=== PATIENT | male | born 1955 | race Caucasian/White ===

== ENCOUNTER → 2018-01-06 15:02 | Outpatient (CLI) | payer SELFPAY ==
[2018-01-06 16:10] LABS: Absolute Lymphocyte Count 1.49 X10^3/ul (0.83-4.51); Absolute Neutrophil Count 4.2 X10^3/uL (2.0-7.7); Basophil# 0.03 X10^3/uL; Basophil% 0.4 % (0-1); Eosinophil# 0.13 X10^3/uL; Eosinophils% 1.9 % (0-5); Hematocrit 36.6 % (40-54); Hemoglobin 12.4 g/dl (13.0-16.5); Lymphocyte # 1.49 X10^3/ul (4.0); Lymphocyte % 22.3 % (19-41); Mean Corp Hgb Conc 33.9 g/gl (32-36); Mean Corpuscular Hgb 29.1 pg (27.0-32.0); Mean Corpuscular Volume 85.9 fL (80-94); Mean Platelet Vol. 11.4 fl (6.2-12.0); Monocyte% 10.5 % (0-10); Neutrophil # 4.24 X10^3/uL (2.7-7.7); Neutrophil % 63.6 % (47-70); Platelet Count 264 K/mm3 (150-450); RBC Distribution Width CV 12.5 % (11.6-14.6); RBC Distribution Width SD 38.4 fl (35.1-43.9); Red Blood Count 4.26 M/mm3 (4.6-6.2); White Blood Count 6.7 K/mm3 (4.4-11.0)
[2018-01-06 16:12] LABS: POSITIVE COUNT NO; POSITIVE DIFFERENTIAL NO; POSITIVE MORPHOLOGY NO
[2018-01-06 16:47] LABS: ALB/GLOB Ratio 1.1 RATIO (0.9-2.4); AST(SGOT) 20 U/L (15-37); Alanine Aminotransfer ALT/SGPT 39 U/L (16-61); Albumin, Serum 3.8 g/dL (3.2-5.0); Alkaline Phosphatase 86 U/L (45-117); Anion Gap 9 (5-15); BUN 42 mg/dL (7-18); BUN/Creat Ratio 25.6 RATIO (10-20); Calcium,Total 8.5 mg/dL (8.5-10.1); Chloride 100 mmol/L (98-107); Creatinine, Serum 1.64 mg/dL (0.70-1.30); EST Glomerular Filtration Rate 45 mL/min (>60); Est Glom Filt Rate - Afr Amer 55 mL/min (>60); Globulin 3.4 g/dL (2.2-4.2); Glucose 86 mg/dL (74-106); PSA,Total - Annual Screen 0.67 ng/mL (0.00-4.00); Potassium 4.2 mmol/L (3.5-5.1); Protein, Total 7.2 g/dL (6.4-8.2); Sodium Level 134 mmol/L (136-145); Thyroid Stim Hormone (TSH) 2.08 uIU/mL (0.358-3.74)
[2018-01-08 09:43] LABS: Hep C Antibodies <0.1 s/co ratio (0.0-0.9)
== END ==
LOC: POLAB3 15:03
PROVIDERS: Family Provider Family Medicine Geriatric Medicine; PCP Family Medicine Geriatric Medicine; Visit Provider Family Medicine Geriatric Medicine
DX: F52.8 Other sexual dysfunction not due to a substance or known physiological condition (principal); I10 Essential (primary) hypertension; Z12.5 Encounter for screening for malignant neoplasm of prostate; Z13.89 Encounter for screening for other disorder
CPT/HCPCS: 36415; 80053; 84153; 84403; 84443; 85025; 86803; G0103

== ENCOUNTER → 2018-10-29 12:43 | Outpatient (CLI) | payer MEDICARE, SELFPAY | PROVIDERS: Family Provider Family Medicine Geriatric Medicine; PCP Family Medicine Geriatric Medicine; Referring Provider Family Medicine Geriatric Medicine; Visit Provider Family Medicine Geriatric Medicine | DX: R68.83 Chills (without fever) (principal) | CPT/HCPCS: 87633 ==

== ENCOUNTER → 2019-01-07 | Outpatient (CLI) | payer MEDICARE, SELFPAY ==
[2019-01-07 12:56] LABS: Absolute Neutrophil Count 4.6 X10^3/uL (2.0-7.7); Basophil# 0.02 X10^3/uL; Basophil% 0.3 % (0-1); Eosinophils% 1.5 % (0-5); Hematocrit 38.7 % (40-54); Hemoglobin 12.9 g/dl (13.0-16.5); Lymphocyte % 16.5 % (19-41); Mean Corp Hgb Conc 33.3 g/gl (32-36); Mean Corpuscular Hgb 28.9 pg (27.0-32.0); Mean Corpuscular Volume 86.8 fL (80-94); Mean Platelet Vol. 11.2 fl (6.2-12.0); Monocyte# 0.81 X10^3/uL; Monocyte% 12.2 % (0-10); Neutrophil # 4.55 X10^3/uL (2.7-7.7); Neutrophil % 68.3 % (47-70); Platelet Count 243 K/mm3 (150-450); RBC Distribution Width CV 13.6 % (11.6-14.6); RBC Distribution Width SD 43.2 fl (35.1-43.9); Red Blood Count 4.46 M/mm3 (4.6-6.2); White Blood Count 6.7 K/mm3 (4.4-11.0)
[2019-01-07 12:59] LABS: Differential Indicated SCAN CRITERIA MET; POSITIVE COUNT NO; POSITIVE DIFFERENTIAL NO; POSITIVE MORPHOLOGY YES
[2019-01-07 13:10] LABS: Vitamin D,25 Hydroxy 21.9 ng/mL (29.95-100.01)
[2019-01-07 13:14] LABS: AST(SGOT) 18 U/L (15-37); Alanine Aminotransfer ALT/SGPT 39 U/L (16-61); Albumin, Serum 3.5 g/dL (3.2-5.0); Alkaline Phosphatase 85 U/L (45-117); Anion Gap 10 (5-15); BUN 30 mg/dL (7-18); BUN/Creat Ratio 26.5 RATIO (10-20); Calcium,Total 9.3 mg/dL (8.5-10.1); Chloride 101 mmol/L (98-107); Creatinine, Serum 1.13 mg/dL (0.70-1.30); EST Glomerular Filtration Rate 69 mL/min (>60); Est Glom Filt Rate - Afr Amer 84 mL/min (>60); Globulin 3.6 g/dL (2.2-4.2); Glucose 83 mg/dL (74-106); PSA,Total - Annual Screen 0.48 ng/mL (0.00-4.00); Protein, Total 7.1 g/dL (6.4-8.2); Sodium Level 137 mmol/L (136-145); Thyroid Stim Hormone (TSH) 2.03 uIU/mL (0.358-3.74)
[2019-01-07 13:16] LABS: Platelet Estimate ADEQUATE (ADEQ); Red Cell Morphology NORM C+C NORMAL (NORM C&C)
== END | disposition home or self-care (01) ==
LOC: POLAB3 09:00
PROVIDERS: Family Provider Family Medicine Geriatric Medicine; PCP Family Medicine Geriatric Medicine; Visit Provider Family Medicine Geriatric Medicine
DX: E55.9 Vitamin D deficiency, unspecified (principal); F52.8 Other sexual dysfunction not due to a substance or known physiological condition; I10 Essential (primary) hypertension; Z12.5 Encounter for screening for malignant neoplasm of prostate
CPT/HCPCS: 36415; 80053; 82306; 84153; 84403; 84443; 85025; G0103

== ENCOUNTER → 2020-01-09 08:43 | Outpatient (CLI) | payer MEDICARE, SELFPAY ==
[2020-01-09 11:18] LABS: Absolute Lymphocyte Count 1.14 X10^3/uL (0.83-4.51); Absolute Neutrophil Count 3.9 X10^3/uL (2.0-7.7); Basophil# 0.05 X10^3/uL; Basophil% 0.9 % (0-1); Eosinophil# 0.08 X10^3/uL; Eosinophils% 1.4 % (0-5); Hematocrit 39.3 % (40-54); Hemoglobin 12.5 g/dL (13.0-16.5); Lymphocyte # 1.14 X10^3/ul (4.0); Lymphocyte % 19.7 % (19-41); Mean Corp Hgb Conc 31.8 g/dL (32-36); Mean Corpuscular Hgb 27.3 pg (27.0-32.0); Mean Corpuscular Volume 85.8 fL (80-94); Mean Platelet Vol. 11.1 fl (6.2-12.0); Monocyte# 0.52 X10^3/uL; NRBC Flagged by Analyzer 0 % (0-5); Neutrophil % 67.3 % (47-70); Platelet Count 227 K/mm3 (150-450); RBC Distribution Width CV 12.7 % (11.6-14.6); RBC Distribution Width SD 39.6 fl (35.1-43.9); Red Blood Count 4.58 M/mm3 (4.6-6.2); White Blood Count 5.8 K/mm3 (4.4-11.0)
[2020-01-09 11:44] LABS: Vitamin D,25 Hydroxy 27.3 ng/mL
[2020-01-09 11:55] LABS: ALB/GLOB Ratio 1.1 RATIO (0.9-2.4); AST(SGOT) 17 U/L (15-37); Alanine Aminotransfer ALT/SGPT 37 U/L (16-61); Albumin, Serum 3.9 g/dL (3.2-5.0); Alkaline Phosphatase 106 U/L (45-117); Anion Gap 7 (5-15); BUN 24 mg/dL (7-18); BUN/Creat Ratio 22.6 RATIO (10-20); Calcium,Total 9.3 mg/dL (8.5-10.1); Chloride 102 mmol/L (98-107); Creatinine, Serum 1.06 mg/dL (0.70-1.30); EST Glomerular Filtration Rate 74 mL/min (>60); Est Glom Filt Rate - Afr Amer 90 mL/min (>60); Globulin 3.5 g/dL (2.2-4.2); Glucose 99 mg/dL (74-106); PSA,Total - Annual Screen 0.58 ng/mL (0.00-4.00); Potassium 4.6 mmol/L (3.5-5.1); Protein, Total 7.4 g/dL (6.4-8.2); Sodium Level 137 mmol/L (136-145)
== END ==
PROVIDERS: PCP Family Medicine Geriatric Medicine; Visit Provider Family Medicine Geriatric Medicine
DX: I10 Essential (primary) hypertension (principal); E55.9 Vitamin D deficiency, unspecified; Z12.5 Encounter for screening for malignant neoplasm of prostate
CPT/HCPCS: 36415; 80053; 82306; 84153; 84443; 85025; G0103

== ENCOUNTER → 2020-11-14 16:27 | Outpatient (CLI) | payer MEDICARE, SELFPAY ==
--- NOTE | 2020-11-14 16:35 | RAD_ITS ---
STUDY: X-RAY - LEFT SHOULDER REASON FOR EXAM: Male, 65 years old. Left should pain post fall x 2 months ago. TECHNIQUE: 4 view(s) of the shoulder. COMPARISON: None. FINDINGS: Normal glenohumeral articulation. Normal acromioclavicular joint. Inferior hooking of the acromion can predispose to impingement. Normal humeral head and visualized proximal humerus. The soft tissue structures are unremarkable. Probable left upper lobe granuloma. RAD/Shoulder min 2 Views IMPRESSION: Inferior hooking of the acromion can predispose to impingement. Electronically Signed: Ubaldo Ross DO at 20:13 EDT Tel [phone], Service support ,
== END ==
LOC: RAD 16:30
PROVIDERS: PCP Family Medicine Geriatric Medicine; Referring Provider Family Medicine Geriatric Medicine; Visit Provider Family Medicine Geriatric Medicine
DX: M25.512 Pain in left shoulder (principal)
CPT/HCPCS: 73030

== ENCOUNTER → 2020-12-06 09:35 | Outpatient (CLI) | payer MEDICARE, SELFPAY ==
--- NOTE | 2020-12-06 10:58 | CT_ITS ---
STUDY: CT ABDOMEN AND PELVIS WITH CONTRAST REASON FOR EXAM: Male, 65 years old. ABD PAIN RADIATION DOSAGE (If Supplied By Facility): CTDIvol = ( 17 ) mGy, DLP = ( 994.13 ) mGycm TECHNIQUE: Transaxial images were obtained from the dome of the diaphragm to the symphysis pubis without oral contrast. IV 100mL Isovue-300 was administered. Sagittal and coronal images were reconstructed. Individualized dose optimization techniques were used for this CT. COMPARISON: None. FINDINGS: Mild increased linear markings at the lung bases suggestive of scarring. The visualized portions of the heart are within normal limits. Normal liver. Normal gallbladder and extrahepatic biliary system. Normal spleen. Normal pancreas. Normal bilateral adrenal glands. 1 cm cyst in the anterior lateral aspect of the right mid kidney. 1 cm cyst in the mid anterior portion of the left kidney. There is a moderate-sized hernia. Normal small intestine. There are multiple colonic diverticula consistent with diverticulosis. The appendix is visualized and appears normal. There is scattered atherosclerotic calcification of the abdominal aorta, without a demonstrated aneurysm. Normal inferior vena cava. There is borderline retroperitoneal lymphadenopathy with enlarged nodes no greater than 10mm in the short axis diameter. Normal urinary bladder. There are prostatic calcifications. Normal abdominal wall. Normal osseous structures. CT/Abdomen/Pelvis WITH Contrast IMPRESSION: Sigmoid diverticulosis. Electronically Signed: Pk Garcia MD at 13:28 EDT , Service support ,
[2020-12-06 12:27] LABS: Absolute Lymphocyte Count 0.99 X10^3/uL (0.83-4.51); Absolute Neutrophil Count 4.4 X10^3/uL (2.0-7.7); Basophil# 0.04 X10^3/uL; Basophil% 0.6 % (0-1); Eosinophil# 0.07 X10^3/uL; Eosinophils% 1.1 % (0-5); Hemoglobin 11.7 g/dL (13.0-16.5); Lymphocyte # 0.99 X10^3/ul (0.83-4.51); Lymphocyte % 15.7 % (19-41); Mean Corp Hgb Conc 31.6 g/dL (32-36); Mean Corpuscular Hgb 27.2 pg (27.0-32.0); Monocyte# 0.68 X10^3/uL; Monocyte% 10.8 % (0-10); NRBC Flagged by Analyzer 0 % (0-5); Neutrophil # 4.41 X10^3/uL (2.7-7.7); Neutrophil % 69.9 % (47-70); Platelet Count 243 K/mm3 (150-450); RBC Distribution Width CV 13.3 % (11.6-14.6); RBC Distribution Width SD 41.6 fl (35.1-43.9); White Blood Count 6.3 K/mm3 (4.4-11.0)
[2020-12-06 12:36] LABS: ALB/GLOB Ratio 0.9 RATIO (0.9-2.4); AST(SGOT) 19 U/L (15-37); Alanine Aminotransfer ALT/SGPT 41 U/L (16-61); Albumin, Serum 3.6 g/dL (3.2-5.0); Alkaline Phosphatase 103 U/L (45-117); Anion Gap 9 (5-15); BUN 34 mg/dL (7-18); BUN/Creat Ratio 23.8 RATIO (10-20); Calcium,Total 9.3 mg/dL (8.5-10.1); Chloride 100 mmol/L (98-107); Creatinine, Serum 1.43 mg/dL (0.70-1.30); EST Glomerular Filtration Rate 52 mL/min (>60); Est Glom Filt Rate - Afr Amer 63 mL/min (>60); Globulin 3.9 g/dL (2.2-4.2); Glucose 81 mg/dL (74-106); Potassium 4.8 mmol/L (3.5-5.1); Protein, Total 7.5 g/dL (6.4-8.2); Sodium Level 133 mmol/L (136-145)
== END ==
PROVIDERS: PCP Family Medicine Geriatric Medicine; Visit Provider Family Medicine Geriatric Medicine
DX: N39.0 Urinary tract infection, site not specified (principal); R10.9 Unspecified abdominal pain
CPT/HCPCS: 36415; 74177; 80053; 85025; 87086; Q9967

== ENCOUNTER → 2020-12-11 | Outpatient (CLI) | payer MEDICARE, SELFPAY | END | disposition home or self-care (01) | PROVIDERS: PCP Family Medicine Geriatric Medicine; Referring Provider Family Medicine Geriatric Medicine; Visit Provider Family Medicine Geriatric Medicine | DX: R19.7 Diarrhea, unspecified (principal); K92.1 Melena | CPT/HCPCS: 82274; 83630; 87177; 87209; 87493; 87506 ==

== ENCOUNTER → 2021-01-09 10:03 | Outpatient (CLI) | payer MEDICARE, SELFPAY ==
[2021-01-09 12:07] LABS: Absolute Neutrophil Count 2.9 X10^3/uL (2.0-7.7); Basophil# 0.03 X10^3/uL; Basophil% 0.6 % (0-1); Eosinophil# 0.06 X10^3/uL; Eosinophils% 1.3 % (0-5); Hematocrit 38.6 % (40-54); Hemoglobin 12.8 g/dL (13.0-16.5); Lymphocyte % 23.7 % (19-41); Mean Corp Hgb Conc 33.2 g/dL (32-36); Mean Corpuscular Hgb 28.2 pg (27.0-32.0); Mean Platelet Vol. 11.3 fl (6.2-12.0); Monocyte# 0.45 X10^3/uL; Monocyte% 9.7 % (0-10); NRBC Flagged by Analyzer 0 % (0-5); Neutrophil # 2.92 X10^3/uL (2.7-7.7); Neutrophil % 62.8 % (47-70); Platelet Count 223 K/mm3 (150-450); RBC Distribution Width CV 12.8 % (11.6-14.6); RBC Distribution Width SD 39.9 fl (35.1-43.9); Red Blood Count 4.54 M/mm3 (4.6-6.2); White Blood Count 4.7 K/mm3 (4.4-11.0)
[2021-01-09 12:31] LABS: Vitamin D,25 Hydroxy 25.3 ng/mL
[2021-01-09 12:39] LABS: ALB/GLOB Ratio 1.1 RATIO (0.9-2.4); AST(SGOT) 21 U/L (15-37); Alanine Aminotransfer ALT/SGPT 37 U/L (16-61); Albumin, Serum 3.8 g/dL (3.2-5.0); Alkaline Phosphatase 110 U/L (45-117); Anion Gap 8 (5-15); BUN 18 mg/dL (7-18); Calcium,Total 8.9 mg/dL (8.5-10.1); Chloride 102 mmol/L (98-107); EST Glomerular Filtration Rate 79 mL/min (>60); Est Glom Filt Rate - Afr Amer 96 mL/min (>60); Globulin 3.5 g/dL (2.2-4.2); Glucose 92 mg/dL (74-106); PSA,Total - Annual Screen 0.59 ng/mL (0.00-4.00); Potassium 4.2 mmol/L (3.5-5.1); Protein, Total 7.3 g/dL (6.4-8.2); Sodium Level 135 mmol/L (136-145); Thyroid Stim Hormone (TSH) 2.25 uIU/mL (0.358-3.74)
== END ==
PROVIDERS: PCP Family Medicine Geriatric Medicine; Visit Provider Family Medicine Geriatric Medicine
DX: E55.9 Vitamin D deficiency, unspecified (principal); F52.8 Other sexual dysfunction not due to a substance or known physiological condition; I10 Essential (primary) hypertension; Z12.5 Encounter for screening for malignant neoplasm of prostate
CPT/HCPCS: 36415; 80053; 82306; 84153; 84403; 84443; 85025; G0103

== ENCOUNTER → 2021-03-14 17:02 | Outpatient (CLI) | payer MEDICARE, SELFPAY ==
--- NOTE | 2021-03-14 17:14 | EKG12_ITS ---
Test Reason : PRE-OP Blood Pressure : / mmHG Vent. Rate : 061 BPM Atrial Rate : 061 BPM P-R Int : 132 ms QRS Dur : 084 ms QT Int : 400 ms P-R-T Axes : 024 011 006 degrees QTc Int : 402 ms Normal sinus rhythm Normal ECG Confirmed by YUMIKO ARZATE, MAGDIEL ([id number]), mapping editor ALYCIA DAWSON ([id number]) on 03/18/2021 8:32:07 AM Referred By: Syd Wood Confirmed By:MAGDIEL CALDERON MD
[2021-03-14 17:41] LABS: Hematocrit 35.8 % (40-54); Mean Corp Hgb Conc 33.5 g/dL (32-36); Mean Corpuscular Hgb 28.1 pg (27.0-32.0); Mean Corpuscular Volume 83.8 fL (80-94); Mean Platelet Vol. 10.9 fl (6.2-12.0); Platelet Count 237 K/mm3 (150-450); RBC Distribution Width CV 12.9 % (11.6-14.6); RBC Distribution Width SD 38.7 fl (35.1-43.9); Red Blood Count 4.27 M/mm3 (4.6-6.2); White Blood Count 6.4 K/mm3 (4.4-11.0)
[2021-03-14 18:10] LABS: Anion Gap 4 (5-15); BUN 24 mg/dL (7-18); BUN/Creat Ratio 26.2 RATIO (10-20); Calcium,Total 8.9 mg/dL (8.5-10.1); Chloride 105 mmol/L (98-107); Creatinine, Serum 0.92 mg/dL (0.70-1.30); EST Glomerular Filtration Rate 87 mL/min (>60); Est Glom Filt Rate - Afr Amer 106 mL/min (>60); Glucose 95 mg/dL (74-106); Potassium 3.8 mmol/L (3.5-5.1); Sodium Level 137 mmol/L (136-145)
== END ==
PROVIDERS: PCP Family Medicine Geriatric Medicine; Referring Provider Orthopaedic Surgery; Visit Provider Orthopaedic Surgery
DX: Z01.818 Encounter for other preprocedural examination (principal); Z01.810 Encounter for preprocedural cardiovascular examination; Z11.59 Encounter for screening for other viral diseases
CPT/HCPCS: 36415; 80048; 85027; 87426; 93005; C9803

== ENCOUNTER → 2021-06-25 11:28 | Outpatient (CLI) | payer MEDICARE, SELFPAY ==
[2021-06-25 12:09] LABS: Absolute Lymphocyte Count 1.44 X10^3/uL (0.83-4.51); Absolute Neutrophil Count 3.6 X10^3/uL (2.0-7.7); Basophil# 0.06 X10^3/uL; Eosinophil# 0.12 X10^3/uL; Hematocrit 40.9 % (40-54); Hemoglobin 13.4 g/dL (13.0-16.5); Lymphocyte # 1.44 X10^3/ul (0.83-4.51); Lymphocyte % 24.1 % (19-41); Mean Corp Hgb Conc 32.8 g/dL (32-36); Mean Corpuscular Hgb 26.9 pg (27.0-32.0); Mean Platelet Vol. 10.6 fl (6.2-12.0); Monocyte% 11.7 % (0-10); NRBC Flagged by Analyzer 0 % (0-5); Neutrophil # 3.58 X10^3/uL (2.7-7.7); Platelet Count 283 K/mm3 (150-450); RBC Distribution Width CV 13.4 % (11.6-14.6); RBC Distribution Width SD 39.8 fl (35.1-43.9); Red Blood Count 4.99 M/mm3 (4.6-6.2)
[2021-06-25 12:51] LABS: Vitamin D,25 Hydroxy 15.7 ng/mL
[2021-06-25 12:56] LABS: ALB/GLOB Ratio 0.9 RATIO (0.9-2.4); AST(SGOT) 35 U/L (15-37); Alanine Aminotransfer ALT/SGPT 61 U/L (16-61); Albumin, Serum 3.6 g/dL (3.2-5.0); Alkaline Phosphatase 105 U/L (45-117); Anion Gap 8 (5-15); BUN 20 mg/dL (7-18); BUN/Creat Ratio 19.6 RATIO (10-20); Calcium,Total 9.4 mg/dL (8.5-10.1); Chloride 102 mmol/L (98-107); Creatinine, Serum 1.02 mg/dL (0.70-1.30); EST Glomerular Filtration Rate 77 mL/min (>60); Est Glom Filt Rate - Afr Amer 93 mL/min (>60); Globulin 3.9 g/dL (2.2-4.2); Glucose 71 mg/dL (74-106); Protein, Total 7.5 g/dL (6.4-8.2); Sodium Level 137 mmol/L (136-145); Thyroid Stim Hormone (TSH) 2.68 uIU/mL (0.358-3.74)
== END ==
PROVIDERS: PCP Family Medicine Geriatric Medicine; Visit Provider Family Medicine Geriatric Medicine
DX: E55.9 Vitamin D deficiency, unspecified (principal); F52.8 Other sexual dysfunction not due to a substance or known physiological condition; I10 Essential (primary) hypertension
CPT/HCPCS: 36415; 80053; 82306; 84403; 84443; 85025

== ENCOUNTER 2021-08-29 15:29 | Outpatient (CLI) | payer MEDICARE, SELFPAY | END 2021-08-29 23:59 | disposition short-term general hospital (02) | PROVIDERS: PCP Family Medicine Geriatric Medicine; Visit Provider Family Medicine Geriatric Medicine | DX: R68.83 Chills (without fever) (principal); Z20.822 Contact with and (suspected) exposure to COVID-19 | CPT/HCPCS: 87635; 87804; 87807; C9803; U0003; U0005 ==

== ENCOUNTER 2021-10-13 10:04 | Emergency (ER) | payer MEDICARE, SELFPAY ==
[2021-10-13 10:04] VITALS: BP 159/83; PULSE 75; RESP 14; TEMP 36.2; O2SAT 96; BMI 27.5
--- NOTE | 2021-10-13 10:43 | EDS_ITS ---
HPI History of Present Illness Chief Complaint: Lower Extremity Injury Informant: patient Narrative Narrative: Patient presents with right leg pain. He states he slipped and fell on the ice about 4 weeks ago. Initially he had right hip pain. He states he still has pain in the posterior aspect of his right buttock. He also sometimes gets some pain in the right anterior vidal. He saw chiropractor once but this did not help. Patient does have a history of sciatica several months ago and states this reminds him of it. He does not have any weakness. He has no bowel or bladder dysfunction. He has no back pain at all. Increase activity makes it worse and rest makes it better. Also leaning forward or lifting the thigh up makes it worse. He did grinding the other day where he rocked back and forth for some hours sharpening a blade. After this he had a lot more pain. PFSH [facility] Medical History GERD (gastroesophageal reflux disease) HTN (hypertension) Home Medications atorvastatin 40 mg PO DAILY 10/13/21 [History Last Taken Unknown] lisinopril-hydrochlorothiazide 1 tab PO DAILY 10/13/21 [History Last Taken Unknown] omeprazole 40 mg PO QHS 10/13/21 [History Last Taken Unknown] prednisone 60 mg PO DAILY #15 tab 10/13/21 [Rx Last Taken Unknown] tramadol 50 mg PO QHS 7 Days #7 tab 10/13/21 [Rx Last Taken Unknown] Allergy/AdvReac Type Severity Reaction Status Date / Time No Known Allergies Allergy Verified 10/13/21 10:06 Surgical History H/O rotator cuff surgery Social History Smoking Status: Never smoker ROS ROS ED Constitutional Constitutional ED: Denies chills or fever(s) Cardiovascular Cardiovascular: Denies chest pain Respiratory/Chest Respiratory/Chest: Denies dyspnea Gastrointestinal Gastrointestinal: Denies abdominal pain, constipation, diarrhea, melena, nausea or vomiting Genitourinary Genitourinary ED: Denies dysuria, hematuria or urinary frequency Musculoskeletal Musculoskeletal: Reports other Details: See history of present illness. ; Denies back pain or neck pain Integumentary Denies rash Neurologic Neurologic: Denies paresthesias or weakness Allergic/Immunologic Allergic/Immunologic ED: Denies urticaria EXAM Physical Exam Const Vital Signs: 10/13/21 10:04 Temperature 97.2 F L Temperature Source Temporal Pulse Rate 75 Respiratory Rate 14 Blood Pressure 159/83 H Blood Pressure Mean 108 Pulse Ox 96 Oxygen Delivery Method Room Air Positive well nourished and well developed General Appearance ED: well developed and NAD HEENT Reports moist mucous membranes Eyes General Eye ED: Negative for pale conjunctiva Neck no JVD Resp normal respiratory effort and clear to auscultation bilaterally Cardio regular rate and regular rhythm GI normal to inspection, nondistended, normoactive bowel sounds, non-tender and non-distended GI Narrative: No mass or tenderness. No bruit. Auscultation: normoactive bowel sounds Palpation: soft Back/Spine no CVA tenderness Back/Spine Narrative: No back tenderness at all. Including no percussion tenderness down his spine through his sacrum. Thoracic Spine / Upper Back: Negative for paraspinal muscle tenderness Lumbar Spine / Lower Back: Negative for lumbar spinal tenderness Extremity normal to inspection Extremity Narrative: No swelling or distended veins. No asymmetry. He does have some tenderness in the sciatic notch on the back. He has slight tenderness with percussion over the greater trochanter. Remainder of the leg is nontender. Achilles is intact by palpation and Cox. No pain with motion of the knee or ankle. Neuro no sensory deficits noted Sensorium / Orientation: alert Motor Exam: strength 5/5 throughout Psych mental status grossly normal Skin no rashes or lesions noted and no wounds MDM MDM MDM Narrative Medical decision making narrative: X-rays of the patient right hip looked at by me and read by radiology shows no sign of acute fracture or dislocation. His exam and history is most consistent with sciatica. He has not had relief after almost a month. I think it is reasonable to try a short course of steroids at this time. I will also write for some tramadol to take at night only so he can sleep better. If he develops weakness numbness bowel bladder dysfunction fevers or any other symptoms he should return. He should follow-up with his physician to be rechecked in a few days to a week. Radiography Diagnostic Testing: Clinical Impression(s) from Imaging Studies Hip/Pelvis X-Ray 10/13/21 10:54 IMPRESSION: No acute findings. Electronically Signed: Vance Jiang MD at 11:23 EDT Reading Location ID and State: [facility] / [place] , Service support , Discharge Plan Triage Chief Complaint: Lower Extremity Injury ED Provider: Sidney Cuello Dx/Rx/DC Orders Clinical Impression: Right sided sciatica, Fall due to ice or snow Instructions: ED Sciatica Prescriptions: New prednisone 20 MG tablet 60 mg PO DAILY Qty: 15 RF: 0 tramadol 50 mg tablet 50 mg PO QHS 7 Days Qty: 7 RF: 0 No Action atorvastatin 40 mg tablet 40 mg PO DAILY RF: 0 lisinopril-hydrochlorothiazide 20-12.5 mg tablet 1 tab PO DAILY RF: 0 omeprazole 40 mg capsule,delayed release(DR/EC) 40 mg PO QHS RF: 0 Primary Care Provider: Lester Prieto Chi Referrals: Lester Prieto Chi, MD [Primary Care Provider] - 1 Week if not improving Disposition Disposition: Home, Self Care
--- NOTE | 2021-10-13 10:54 | RAD_ITS ---
STUDY: X-RAY - PELVIS AND RIGHT HIP REASON FOR EXAM: Male, 66 years old. FALL x4 WEEKS AGO, CONTINUED RIGHT HIP PAIN, NOT IMPROVING trauma, pain TECHNIQUE: XR Hip Unilateral with Pelvis when performed; 2-3 Views COMPARISON: None. FINDINGS: There is a non-specific bowel gas pattern. Normal visualized soft tissue structures. Normal bilateral iliac wings, sacroiliac joints and visualized sacrum. Normal bilateral superior and inferior pubic rami. Normal pubic symphysis. Normal bilateral ischial tuberosities. Normal visualized femoral head. Normal acetabulum. Normal hip joint. RAD/HIP, UNI W/ Pelvis 2-3 Views IMPRESSION: No acute findings. Electronically Signed: Vance Jaing MD at 11:23 EDT ,
[2021-10-13 12:00] VITALS: PULSE 77; RESP 16; O2SAT 97
== END 2021-10-13 12:02 | disposition home or self-care (01) ==
PROVIDERS: Emergency Provider Emergency Medicine; PCP Family Medicine Geriatric Medicine; Visit Provider Emergency Medicine
DX: M54.31 Sciatica, right side (principal); I10 Essential (primary) hypertension; K21.9 Gastro-esophageal reflux disease without esophagitis; Z79.899 Other long term (current) drug therapy; W00.9XXA Unspecified fall due to ice and snow, initial encounter; Y93.9 Activity, unspecified; Y92.9 Unspecified place or not applicable
CPT/HCPCS: 73502; 99282

== ENCOUNTER → 2022-01-14 | Outpatient (CLI) | payer MEDICARE, SELFPAY ==
[2022-01-14 12:52] LABS: Absolute Lymphocyte Count 1.12 X10^3/uL (0.83-4.51); Absolute Neutrophil Count 5.1 X10^3/uL (2.0-7.7); Basophil# 0.05 X10^3/uL; Basophil% 0.7 % (0-1); Eosinophil# 0.08 X10^3/uL; Eosinophils% 1.1 % (0-5); Hematocrit 37.6 % (40-54); Hemoglobin 12.4 g/dL (13.0-16.5); Lymphocyte # 1.12 X10^3/ul (0.83-4.51); Lymphocyte % 15.7 % (19-41); Mean Corpuscular Hgb 28.7 pg (27.0-32.0); Mean Platelet Vol. 11.2 fl (6.2-12.0); Monocyte# 0.59 X10^3/uL; Monocyte% 8.3 % (0-10); NRBC Flagged by Analyzer 0 % (0-5); Neutrophil # 5.08 X10^3/uL (2.7-7.7); Neutrophil % 71.4 % (47-70); Platelet Count 287 K/mm3 (150-450); RBC Distribution Width CV 13.5 % (11.6-14.6); RBC Distribution Width SD 43.1 fl (35.1-43.9); Red Blood Count 4.32 M/mm3 (4.6-6.2); White Blood Count 7.1 K/mm3 (4.4-11.0)
[2022-01-14 12:57] LABS: Vitamin D,25 Hydroxy 32.8 ng/mL
[2022-01-14 13:07] LABS: ALB/GLOB Ratio 0.9 RATIO (0.9-2.4); AST(SGOT) 19 U/L (15-37); Alanine Aminotransfer ALT/SGPT 32 U/L (16-61); Albumin, Serum 3.6 g/dL (3.2-5.0); Alkaline Phosphatase 112 U/L (45-117); Anion Gap 8 (5-15); BUN 16 mg/dL (7-18); BUN/Creat Ratio 15.2 RATIO (10-20); Calcium,Total 9.6 mg/dL (8.5-10.1); Chloride 103 mmol/L (98-107); Creatinine, Serum 1.05 mg/dL (0.70-1.30); EST Glomerular Filtration Rate 75 mL/min (>60); Est Glom Filt Rate - Afr Amer 90 mL/min (>60); Globulin 3.8 g/dL (2.2-4.2); Glucose 148 mg/dL (74-106); PSA,Total - Annual Screen 0.62 ng/mL (0.00-4.00); Potassium 3.9 mmol/L (3.5-5.1); Protein, Total 7.4 g/dL (6.4-8.2); Sodium Level 137 mmol/L (136-145); Thyroid Stim Hormone (TSH) 2.09 uIU/mL (0.358-3.74)
== END | disposition home or self-care (01) ==
PROVIDERS: PCP Family Medicine Geriatric Medicine; Visit Provider Family Medicine Geriatric Medicine
DX: I10 Essential (primary) hypertension (principal); F52.8 Other sexual dysfunction not due to a substance or known physiological condition; E55.9 Vitamin D deficiency, unspecified; Z12.5 Encounter for screening for malignant neoplasm of prostate
CPT/HCPCS: 36415; 80053; 82306; 84153; 84403; 84443; 85025; G0103

== ENCOUNTER 2022-02-20 08:06 | Outpatient (CLI) | payer MEDICARE, SELFPAY ==
--- NOTE | 2022-02-20 08:22 | RAD_ITS ---
INDICATION: PREOP EXAMINATION/TECHNIQUE: X-RAY - XR Chest 2 Views COMPARISON: No prior chest imaging. Comparison is made with a left shoulder x-ray 11/14/2020 FINDINGS: LINES/DEVICES: None. LUNGS: Symmetric, mildly increased lung volumes with flattening of the diaphragm on lateral view may represent some air trapping versus deep inspiratory effort. No hyperlucency or abnormal interstitial pattern. No airspace opacity. There is a 4 mm nodule left upper lobe which is also unchanged in appearance on comparison left shoulder x-ray 11/14/2020. This is likely calcified. No pleural effusion or pneumothorax. MEDIASTINUM AND CARDIOVASCULAR STRUCTURES: There is a intrathoracic portion of the stomach. Cardiomediastinal silhouette is otherwise within normal limits. BONES AND SOFT TISSUES: No fracture or focal osseous lesion. RAD/Chest PA and Lateral IMPRESSION: 1. At least moderate size hiatal hernia. 2. 4 mm nodule left upper lobe unchanged dating back to at least 11/14/2020, likely a calcified granuloma. 3. Questionable air trapping with no other evidence of emphysema. Electronically Signed: Syd Botello DO at 20:09 EDT ,
--- NOTE | 2022-02-20 08:23 | EKG12_ITS ---
Test Reason : PRE-OP Blood Pressure : / mmHG Vent. Rate : 064 BPM Atrial Rate : 064 BPM P-R Int : 126 ms QRS Dur : 080 ms QT Int : 372 ms P-R-T Axes : 022 022 019 degrees QTc Int : 383 ms Normal sinus rhythm Normal ECG Confirmed by NASREEN ARZATE, ROSA ISELA ([id number]), web editor ALYCIA DAWSON ([id number]) on 02/24/2022 11:18:34 AM Referred By: Russell Dowling Confirmed By:LI DOWNEY MD
[2022-02-20 09:08] LABS: Absolute Lymphocyte Count 1.47 X10^3/uL (0.83-4.51); Absolute Neutrophil Count 4.4 X10^3/uL (2.0-7.7); Basophil# 0.04 X10^3/uL; Basophil% 0.6 % (0-1); Eosinophil# 0.08 X10^3/uL; Eosinophils% 1.2 % (0-5); Hematocrit 38.9 % (40-54); Lymphocyte # 1.47 X10^3/ul (0.83-4.51); Lymphocyte % 21.4 % (19-41); Mean Corp Hgb Conc 33.4 g/dL (32-36); Mean Corpuscular Hgb 28.5 pg (27.0-32.0); Mean Corpuscular Volume 85.3 fL (80-94); Mean Platelet Vol. 10.9 fl (6.2-12.0); Monocyte# 0.81 X10^3/uL; Monocyte% 11.8 % (0-10); NRBC Flagged by Analyzer 0 % (0-5); Neutrophil # 4.37 X10^3/uL (2.7-7.7); Neutrophil % 63.4 % (47-70); Platelet Count 277 K/mm3 (150-450); RBC Distribution Width CV 13.2 % (11.6-14.6); RBC Distribution Width SD 40.7 fl (35.1-43.9); Red Blood Count 4.56 M/mm3 (4.6-6.2); White Blood Count 6.9 K/mm3 (4.4-11.0)
[2022-02-20 09:23] LABS: Prothrombin Time (Protime)PT. 13.2 SECONDS (11.7-14.9)
[2022-02-20 09:24] LABS: Partial Thromboplast Time 25.3 Seconds (24.1-36.2)
[2022-02-20 09:41] LABS: Anion Gap 6 (5-15); BUN 26 mg/dL (7-18); BUN/Creat Ratio 25.2 RATIO (10-20); Calcium,Total 9.5 mg/dL (8.5-10.1); Chloride 102 mmol/L (98-107); Creatinine, Serum 1.03 mg/dL (0.70-1.30); EST Glomerular Filtration Rate 76 mL/min (>60); Est Glom Filt Rate - Afr Amer 92 mL/min (>60); Glucose 89 mg/dL (74-106); Potassium 4.2 mmol/L (3.5-5.1); Sodium Level 135 mmol/L (136-145)
[2022-02-20 13:57] LABS: Hemoglobin A1c 5.9 % (3.8-5.6)
== END 2022-02-20 23:59 | disposition home or self-care (01) ==
LOC: LAB 08:09
PROVIDERS: PCP Family Medicine Geriatric Medicine; Referring Provider Physician Assistant Surgical; Visit Provider Physician Assistant Surgical
DX: Z01.818 Encounter for other preprocedural examination (principal); Z01.810 Encounter for preprocedural cardiovascular examination; Z01.811 Encounter for preprocedural respiratory examination
CPT/HCPCS: 36415; 71046; 80048; 83036; 85025; 85610; 85730; 93005

== ENCOUNTER → 2022-04-26 | Outpatient (CLI) | payer MEDICARE, SELFPAY ==
--- NOTE | 2022-04-26 | LES_PTH ---
PATIENT: JON KINSEY LOC: [facility] U#:[id number] AGE/SX: 66/M ROOM: RE04/26/[address]: Dr. Silvino Onofre MD : 1955 BED: DIS: 04/26/2022 SPEC #: [id number] RECD: 04/28/22 10:38 STATUS: MALU POON #: [id number] ARTEMIO: 04/26/22 00:[address]: Silvino Onofre DEPT: SURGICAL PATHOLOGY RECD BY: William Mathias ENTERED: 04/28/22 10:39 SP TYPE: Lesion OTHR DR: Dr. 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 See comment. AM:wang 04/29/2022 COMMENT Results from immunohistochemistry ([id number]) for surrogate HPV marker (p16) will be reported separately. MICROSCOPIC DESCRIPTION Slides are reviewed. GROSS DESCRIPTION Received in fixative is one container labeled with the patient's name and designated mouth. The specimen consists of a piece of lyons mucosal tissue measuring 0.5 x 0.2 x 0.1 cm. The specimen is totally submitted in one cassette. / SJ:wang 04/28/2022 TC:5 CPT: 88811
--- NOTE | 2022-04-26 | IMM_PTH ---
PATIENT: JON KINSEY LOC: [facility] U#:[id number] AGE/SX: 66/M ROOM: RE04/26/[address]: Dr. Silvino Onofre MD : 1955 BED: DIS: 04/26/2022 SPEC #: [id number] RECD: 04/29/22 13:38 STATUS: MALU REQ #: [id number] ARTEMIO: 04/26/22 00:[address]: Silvino Onofre DEPT: IMMUNOHISTOCHEMISTRY RECD BY: Clair Wilson ENTERED: 04/29/22 13:39 SP TYPE: IMMUNO OTHR DR: Dr. Lester Prieto MD Tissues: Mouth, NOS Procedures: p16 (initial) KI-67 (add) PHYSICIAN & [place] [id number] SPECIMEN INFORMATION: Tissue Source: Oral mucosa Clinical Info: Leukoplakia Specimen Number: [id number] CPT code: 01005, 70259 METHODOLOGY: Deparaffinized sections of prefer/formalin-fixed tissue or PAP/DQ stained slides are incubated with monoclonal/polyclonal antibodies/oligonucleotide probes. Localization is made via biotin free immunoperoxidase method. Appropriate controls are performed and reacted as expected. Results on target cell population are indicated in the following table: RESULTS: ANTIBODY / CLONE RESULT P16 (E6H4) positive, focal patchy Ki-67 (30-9) positive, low These tests were developed and their performance characteristics determined by [facility]. They may not have been cleared or approved by the U.S. Food and Drug Administration. The FDA has determined that such clearance or approval is not necessary. The above immunohistochemical/dualISH markers are ordered and reviewed by the Pathologist. INTERPRETATION: Oral mucosa, biopsy: Focal viral cytopathic effect. AM:wang 04/30/2022
== END | disposition home or self-care (01) ==
LOC: LABSPEC 09:15
PROVIDERS: PCP Family Medicine Geriatric Medicine; Referring Provider Otolaryngology Otolaryngology/Facial Plastic Surgery; Visit Provider Otolaryngology Otolaryngology/Facial Plastic Surgery
DX: K13.21 Leukoplakia of oral mucosa, including tongue (principal)
CPT/HCPCS: 88305; 88341; 88342

== ENCOUNTER → 2023-02-03 | Outpatient (CLI) | payer MEDICARE, SELFPAY ==
[2023-02-03 16:03] LABS: Absolute Lymphocyte Count 1.42 X10^3/uL (0.83-4.51); Absolute Neutrophil Count 4.1 X10^3/uL (2.0-7.7); Basophil# 0.04 X10^3/uL; Basophil% 0.6 % (0-1); Eosinophil# 0.07 X10^3/uL; Eosinophils% 1.1 % (0-5); Hematocrit 38.1 % (40-54); Hemoglobin 12.1 g/dL (13.0-16.5); Lymphocyte # 1.42 X10^3/ul (0.83-4.51); Mean Corp Hgb Conc 31.8 g/dL (32-36); Mean Corpuscular Hgb 26.7 pg (27.0-32.0); Mean Corpuscular Volume 83.9 fL (80-94); Mean Platelet Vol. 11.3 fl (6.2-12.0); Monocyte# 0.47 X10^3/uL; Monocyte% 7.6 % (0-10); NRBC Flagged by Analyzer 0 % (0-5); Neutrophil # 4.11 X10^3/uL (2.7-7.7); Neutrophil % 66.7 % (47-70); Platelet Count 281 K/mm3 (150-450); RBC Distribution Width CV 13.8 % (11.6-14.6); RBC Distribution Width SD 42.5 fl (35.1-43.9); Red Blood Count 4.54 M/mm3 (4.6-6.2); White Blood Count 6.2 K/mm3 (4.4-11.0)
[2023-02-03 16:29] LABS: Vitamin D,25 Hydroxy 33.8 ng/mL
[2023-02-03 19:18] LABS: AST(SGOT) 22 U/L (15-37); Alanine Aminotransfer ALT/SGPT 38 U/L (16-61); Albumin, Serum 3.6 g/dL (3.2-5.0); Alkaline Phosphatase 107 U/L (45-117); Anion Gap 9 (5-15); BUN 31 mg/dL (7-18); BUN/Creat Ratio 24.8 RATIO (10-20); Calcium,Total 9.1 mg/dL (8.5-10.1); Chloride 108 mmol/L (98-107); Creatinine, Serum 1.25 mg/dL (0.70-1.30); EST Glomerular Filtration Rate 61 mL/min (>60); Est Glom Filt Rate - Afr Amer 74 mL/min (>60); Globulin 3.7 g/dL (2.2-4.2); Glucose 129 mg/dL (74-106); PSA,Total - Annual Screen 0.64 ng/mL (0.00-4.00); Protein, Total 7.3 g/dL (6.4-8.2); Sodium Level 139 mmol/L (136-145); Thyroid Stim Hormone (TSH) 1.79 uIU/mL (0.358-3.74)
== END | disposition home or self-care (01) ==
LOC: POLAB3 14:40
PROVIDERS: PCP Family Medicine Geriatric Medicine; Visit Provider Family Medicine Geriatric Medicine
DX: I10 Essential (primary) hypertension (principal); E55.9 Vitamin D deficiency, unspecified; Z12.5 Encounter for screening for malignant neoplasm of prostate
CPT/HCPCS: 36415; 80053; 82306; 84153; 84443; 85025; G0103

== ENCOUNTER → 2023-02-12 | Outpatient (CLI) | payer MEDICARE, SELFPAY ==
[2023-02-12 14:00] LABS: Hemoglobin A1c 6.2 % (3.8-5.6)
== END | disposition home or self-care (01) ==
LOC: POLAB3 08:53
PROVIDERS: PCP Family Medicine Geriatric Medicine; Visit Provider Family Medicine Geriatric Medicine
DX: R73.9 Hyperglycemia, unspecified (principal)
CPT/HCPCS: 36415; 83036

== ENCOUNTER 2023-06-22 08:43 | Emergency (ER) | payer MEDICARE, SELFPAY ==
[2023-06-22 08:44] VITALS: BP 182/88; PULSE 67; RESP 14; TEMP 36.4; O2SAT 98; BMI 29.7
--- NOTE | 2023-06-22 09:17 | EX.ED.UPPERE ---
HPI History of Present Illness HPI Narrative: Patient presents with laceration to his right thumb that occurred today, approximately 1 hour ago. Patient states he was using a saw when he accidentally cut his thumb. Patient is unsure of his last tetanus. Patient describes his pain is aching and throbbing. Patient states it is worse with any movement. Patient states nothing makes it better. Patient denies any paresthesias or weakness. Patient states the bleeding has been persistent since the injury. Chief Complaint: Laceration Informant: patient Occured/Mechanism Comment: Cut with a saw Onset/Context/Timing Onset: Today Context: Sudden Onset Timing: Continuous Quality of Pain: Aching and Throbbing Location: Right thumb Worsened by: Movement Relieved by: Nothing Associated Symptoms Associated Symptoms: Negative for Parasthesia, Weakness or Loss of Funtion Narrative Tetanus Immunization: Unknown [facility] Medical History (Updated 06/22/23 @ 11:[address] Vinh Quintanilla DO) GERD (gastroesophageal reflux disease) HTN (hypertension) Home Medications atorvastatin 40 mg tablet 40 mg PO DAILY 10/13/21 [History Last Taken Unknown] lisinopril 20 mg-hydrochlorothiazide 12.5 mg tablet 1 tab PO DAILY 10/13/21 [History Last Taken Unknown] omeprazole 40 mg capsule,delayed release 40 mg PO QHS 10/13/21 [History Last Taken Unknown] prednisone 20 mg tablet 60 mg (3 x 20 mg) PO DAILY #15 tabs 10/13/21 [Rx Last Taken Unknown] tramadol 50 mg tablet 50 mg PO QHS 7 days #7 tabs 10/13/21 [Rx Last Taken Unknown] cephalexin 500 mg capsule 500 mg PO Q6 #40 CAPSULES 06/22/23 [Rx Last Taken Unknown] Allergy/AdvReac Type Severity Reaction Status Date / Time No Known Allergies Allergy Verified 06/22/23 08:45 Surgical History (Updated 06/22/23 @ 09:[address] Vinh Quintanilla DO) H/O rotator cuff surgery History of surgical removal of ganglion cyst Hx of arthroscopy of right knee Hx of tonsillectomy Social History Smoking Status: Current some day smoker tobacco type: smokeless tobacco ROS ROS ED Constitutional Constitutional ED: Denies chills or fever(s) Eyes Eyes: Denies blurry vision or change in vision ENT ENT ED: Denies rhinorrhea or sore throat Cardiovascular Cardiovascular: Denies chest pain or palpitations Respiratory/Chest Respiratory/Chest: Denies cough or dyspnea Gastrointestinal Gastrointestinal: Denies nausea or vomiting Genitourinary Genitourinary ED: Denies dysuria or hematuria Musculoskeletal Musculoskeletal: Reports back pain and neck pain Integumentary Denies abscess or rash Neurologic Neurologic: Denies headache(s) or weakness Allergic/Immunologic Allergic/Immunologic ED: Denies mouth swelling or urticaria EXAM Physical Exam Const Vital Signs: 06/22/23 08:44 Temperature 97.6 F L Temperature Source Temporal Pulse Rate 67 Respiratory Rate 14 Blood Pressure 182/88 H Blood Pressure Mean 119 Pulse Ox 98 Oxygen Delivery Method Room Air Positive well nourished and well developed General Appearance ED: well developed and NAD HEENT Reports moist mucous membranes Neck full ROM and supple Extremity Extremity Narrative: There is an 8 cm full-thickness linear laceration over the pad of the right thumb. There is moderate gapping of the wound margins. There is moderate bleeding noted. There are no foreign bodies visualized. There is good range of motion of the IP and MP joints of the right thumb. Sensation was intact to light touch in all digits. Capillary refill was less than 2 seconds in all digits. Neuro oriented x3, CN's II-XII intact bilaterally, moves all extremities, no focal motor deficits and no sensory deficits noted Sensorium / Orientation: alert Motor Exam: strength 5/5 throughout Psych mental status grossly normal MDM MDM MDM Narrative Medical decision making narrative: Differential diagnosis includes open fracture, and soft tissue laceration. X-rays of the right thumb will be obtained to assess for fracture and foreign body. Radiography Diagnostic Testing: X-rays of the right thumb were obtained. There are 3 views. On my independent interpretation, there is no acute fracture or radiopaque foreign body. Radiologist also interpreted the x-rays and agrees. Treatment and Re-Evaluation Narrative: Patient was given a tetanus booster here. Patient was also given a dose of [place] and a dose of Keflex here. The wound was cleaned and irrigated with copious amounts of normal saline. The wound was anesthetized with 1% plain lidocaine via digital block. The wound was closed with 14 simple interrupted # 4-0 nylon sutures under sterile technique. Patient tolerated the procedure well. Bacitracin dressing was applied. Patient was instructed to keep the wound clean and dry. Patient was given a prescription for Keflex. Patient was instructed to ice and elevate the right hand. Patient was instructed to follow-up with his primary care physician in 7 days for wound recheck and suture removal. Patient understood and was agreeable with the plan. All questions were answered. Procedures Lacerations Right thumb: Length: 8 cm Depth: Sub Q Shape: Flap Prep: Sterile Conditions and Chlorhexadine Laceration repair: Digital block and Skin sutures Irrigated (ml): 150 Number of Sutures/[place]: 14 Suture Information: Ethilon, Simple and 4-0 Discharge Plan Triage Chief Complaint: Laceration ED Provider: Vinh Quintanilla Dx/Rx/DC Orders Clinical Impression: Laceration of right thumb without foreign body without damage to nail, Elevated blood pressure reading Instructions: ED Laceration, Hand: All Closures Prescriptions: New cephalexin [cephalexin] 500 mg capsule 500 mg PO Q6 Qty: 40 0RF No Action atorvastatin 40 mg tablet 40 mg PO DAILY lisinopril-hydrochlorothiazide 20-12.5 mg tablet 1 tab PO DAILY omeprazole 40 mg capsule,delayed release(DR/EC) 40 mg PO QHS prednisone 20 MG tablet 60 mg PO DAILY Qty: 15 0RF tramadol 50 mg tablet 50 mg PO QHS 7 Days Qty: 7 0RF Primary Care Provider: Lester Prieto Chi Referrals: Lester Prieot Chi, MD [Primary Care Provider] - 7 Days for suture removal Disposition Disposition: Home, Self Care
--- NOTE | 2023-06-22 09:25 | RAD_ITS ---
STUDY: X-RAY - RIGHT HAND, ATTENTION THUMB FINGER REASON FOR EXAM: Male, 67 years old. Injury / Pain. TECHNIQUE: 3 views of the right thumb were obtained. COMPARISON: None. FINDINGS: There is soft tissue swelling and irregularity of the distal half of the thumb, likely due to recent trauma. There is mild degenerative arthrosis at the first CMC joint. Normal metacarpal head. Normal metacarpophalangeal joint. Normal proximal phalanx. Normal distal phalanx. There is no demonstrated acute fracture. Intact interphalangeal joint of the thumb. RAD/Finger(s) Min 2 Views IMPRESSION: Soft tissue swelling and irregularity of the distal half of the thumb, likely due to recent trauma. Mild degenerative arthrosis at the first CMC joint. No demonstrated acute fracture. Electronically Signed: Domo Benson MD at 9:51 EST ,
[2023-06-22] MEDS: Diphth,Pertuss(Acell),Tet Vac 0.5 ML Vial IM (09:33)
[2023-06-22] MEDS: HYDROcodone Bitartrate/Apap 5/325 Tablet PO (09:34)
[2023-06-22] MEDS: Lidocaine 1% (20 ml mdv) 20 ML Vial INFILT (09:34)
[2023-06-22] MEDS: Cephalexin 500 MG Capsule PO (09:34)
[2023-06-22 12:15] VITALS: BP 149/69; RESP 16
== END 2023-06-22 12:18 | disposition home or self-care (01) ==
PROVIDERS: Emergency Provider Emergency Medicine; PCP Family Medicine Geriatric Medicine; Visit Provider Emergency Medicine
DX: S61.011A Laceration without foreign body of right thumb without damage to nail, initial encounter (principal); R03.0 Elevated blood-pressure reading, without diagnosis of hypertension; F17.220 Nicotine dependence, chewing tobacco, uncomplicated; W27.8XXA Contact with other nonpowered hand tool, initial encounter; K21.9 Gastro-esophageal reflux disease without esophagitis; I10 Essential (primary) hypertension; Z79.899 Other long term (current) drug therapy; Z23 Encounter for immunization
CPT/HCPCS: 12004; 73140; 90471; 90715; 99284

== ENCOUNTER 2023-08-14 10:08 | Emergency (ER) | payer OTHER, SELFPAY ==
[2023-08-14 10:09] VITALS: BP 154/77; PULSE 68; RESP 16; TEMP 36.3; O2SAT 98; BMI 29.5
--- NOTE | 2023-08-14 10:30 | ED.VIS.GI ---
HPI HPI - GI History of Present Illness Chief Complaint: GI Bleed Informant: patient Narrative Narrative: Patient presents with 3 days of intermittent painless rectal bleeding occurring only when he has bowel movements. He states initially it looked like maybe it was mixed in, but subsequently it has basically been on top of the bowel movement, just after he has it. He denies any abdominal pain, nausea, vomiting, lightheadedness, generalized weakness, presyncope or syncope. He states he had the stomach flu for couple of days, his last episode of diarrhea was a week ago and he has been having solid stools ever since. He states he has not been bearing down a lot. He has never felt any anal discomfort or hemorrhoids that he knows of, but he did have a colonoscopy at 1 point and was told he had some hemorrhoids on that study. He takes no antiplatelet or anticoagulant medications. [facility] Medical History GERD (gastroesophageal reflux disease) HTN (hypertension) Hyperlipidemia Home Medications atorvastatin 40 mg tablet 40 mg PO DAILY 10/13/21 [History Last Taken Unknown] lisinopril 20 mg-hydrochlorothiazide 12.5 mg tablet 1 tab PO DAILY 10/13/21 [History Last Taken Unknown] omeprazole 40 mg capsule,delayed release 40 mg PO QHS 10/13/21 [History Last Taken Unknown] prednisone 20 mg tablet 60 mg (3 x 20 mg) PO DAILY #15 tabs 10/13/21 [Rx Last Taken Unknown] tramadol 50 mg tablet 50 mg PO QHS 7 days #7 tabs 10/13/21 [Rx Last Taken Unknown] cephalexin 500 mg capsule 500 mg PO Q6 #40 CAPSULES 06/22/23 [Rx Last Taken Unknown] hydrocortisone 1 %-pramoxine 1 % rectal foam (Proctofoam HC) 1 applic [place] QHS 10 days #10 grams 08/14/23 [Rx Last Taken Unknown] Allergy/AdvReac Type Severity Reaction Status Date / Time No Known Allergies Allergy Verified 08/14/23 10:09 Surgical History H/O rotator cuff surgery History of surgical removal of ganglion cyst Hx of arthroscopy of right knee Hx of tonsillectomy Social History Smoking Status: Unknown if ever smoked ROS ROS ED Constitutional Constitutional ED: Denies chills or fever(s) Eyes Eyes: Denies change in vision or diplopia ENT ENT ED: Denies rhinorrhea or sore throat Cardiovascular Cardiovascular: Denies chest pain, lightheadedness, palpitations or syncope Respiratory/Chest Respiratory/Chest: Denies cough or dyspnea Gastrointestinal Gastrointestinal: Reports hematochezia; Denies abdominal pain, constipation, diarrhea, melena, nausea or vomiting Genitourinary Genitourinary ED: Denies dysuria or hematuria Musculoskeletal Musculoskeletal: Denies back pain or neck pain Integumentary Denies abscess or rash Neurologic Neurologic: Denies headache(s), paresthesias or weakness Psychiatric Psychiatric: Denies anxiety or suicidal thoughts EXAM Physical Exam Const Vital Signs: 08/14/23 10:09 Temperature 97.3 F L Temperature Source Temporal Pulse Rate 68 Respiratory Rate 16 Blood Pressure 154/77 H Blood Pressure Mean 102 Pulse Ox 98 Oxygen Delivery Method Room Air Positive well nourished and well developed General Appearance ED: well developed and NAD HEENT Reports moist mucous membranes normocephalic and atraumatic Eyes PERRL and EOMs intact bilaterally Neck full ROM and supple Resp normal respiratory effort and clear to auscultation bilaterally Cardio regular rate, regular rhythm and no murmurs GI non-tender and non-distended GI Narrative: Rectal: Nontender, no external hemorrhoids, no active bleeding, no abscess. Auscultation: normoactive bowel sounds Palpation: soft Back/Spine no CVA tenderness General Back: other FROM Extremity normal to inspection General Extremety ED: Negative for edema, pulses abnormal or tenderness General Extremity: Negative for edema or pulses abnormal Neuro oriented x3, CN's II-XII intact bilaterally and no sensory deficits noted Sensorium / Orientation: awake and alert Motor Exam: strength 5/5 throughout Skin no rashes or lesions noted and no wounds MDM MDM MDM Narrative Medical decision making narrative: Although internal hemorrhoids are in the differential, I discussed with the patient that diverticulosis, colonic mass that could be bleeding, and other causes of both lower and upper GI bleeding are in the differential. Labs were obtained, I do not think any emergent imaging is indicated since it would not rule out a colonic mass anyway, and they are all within normal limits. Will empirically treat internal hemorrhoids and recommend close outpatient follow-up, patient is comfortable with that plan. History & Record Review Additional record(s) reviewed:: Prior labs (Same hemoglobin about 6 months ago) Lab Data Attestation: I reviewed the patient's lab results. Labs: Laboratory Results - last 24 hr 08/14/23 10:15 WBC 5.9 RBC 4.48 L Hgb 12.1 L Hct 37.4 L MCV 83.5 MCH 27.0 MCHC 32.4 RDW Std Deviation 38.1 RDW Coeff of Padma 12.6 Plt Count 266 MPV 11.2 Immature Gran % (Auto) 1.500 H Neut % (Auto) 60.5 Lymph % (Auto) 24.0 [place] % (Auto) 8.6 Eos % (Auto) 4.4 Baso % (Auto) 1.0 Absolute Neuts (auto) 3.6 Absolute Lymphs (auto) 1.42 Nucleated RBC % 0 Sodium 138 Potassium 4.0 Chloride 105 Carbon Dioxide 26.0 Anion Gap 7 BUN 25 H Creatinine 1.02 Estim Creat Clear Calc 77.30 Est GFR (MDRD) Af Amer 93 Est GFR (MDRD) Non-Af 77 BUN/Creatinine Ratio 24.5 H Glucose 127 H Calcium 9.1 Total Bilirubin 0.40 AST 25 ALT 63 H Alkaline Phosphatase 97 Total Protein 7.0 Albumin 3.5 Globulin 3.5 Albumin/Globulin Ratio 1.0 Discharge Plan Triage Chief Complaint: GI Bleed ED Provider: [place] Dx/Rx/DC Orders Clinical Impression: Painless rectal bleeding Instructions: Understanding Rectal Bleeding Prescriptions: New Proctofoam HC 1-1 % foam 1 applic [place] QHS 10 Days Qty: 10 0RF No Action atorvastatin 40 mg tablet 40 mg PO DAILY lisinopril-hydrochlorothiazide 20-12.5 mg tablet 1 tab PO DAILY omeprazole 40 mg capsule,delayed release(DR/EC) 40 mg PO QHS prednisone 20 MG tablet 60 mg PO DAILY Qty: 15 0RF tramadol 50 mg tablet 50 mg PO QHS 7 Days Qty: 7 0RF cephalexin [cephalexin] 500 mg capsule 500 mg PO Q6 Qty: 40 0RF Primary Care Provider: Lester Prieto Chi Referrals: Lester Prieto Chi, MD [Primary Care Provider] - 08/17/23 Disposition Disposition: Home, Self Care
[2023-08-14 10:46] LABS: Absolute Lymphocyte Count 1.42 X10^3/uL (0.83-4.51); Absolute Neutrophil Count 3.6 X10^3/uL (2.0-7.7); Basophil# 0.06 X10^3/uL; Eosinophil# 0.26 X10^3/uL; Eosinophils% 4.4 % (0-5); Hematocrit 37.4 % (40-54); Hemoglobin 12.1 g/dL (13.0-16.5); Lymphocyte # 1.42 X10^3/ul (0.83-4.51); Mean Corp Hgb Conc 32.4 g/dL (32-36); Mean Corpuscular Volume 83.5 fL (80-94); Mean Platelet Vol. 11.2 fl (6.2-12.0); Monocyte# 0.51 X10^3/uL; Monocyte% 8.6 % (0-10); NRBC Flagged by Analyzer 0 % (0-5); Neutrophil # 3.58 X10^3/uL (2.7-7.7); Neutrophil % 60.5 % (47-70); Platelet Count 266 K/mm3 (150-450); RBC Distribution Width CV 12.6 % (11.6-14.6); RBC Distribution Width SD 38.1 fl (35.1-43.9); Red Blood Count 4.48 M/mm3 (4.6-6.2); White Blood Count 5.9 K/mm3 (4.4-11.0)
--- OUTSIDE RECORDS SUMMARY | 2023-08-14 10:53 | XMS RPT_ITS | CCD ---
Author Name Unknown Address [address] [place] [address] Organization [facility] Care Team Providers Care Farm Management Adviser Name Role Phone YANETH ARZATE, DR KENT Primary Care Physician Unavailable Primary Care Provider Unavailabl e Unavailable Primary Care Provider Unavailabl e Unavailable Primary Care Provider Unavailabl e HAWRYLUK, SUSHANT Attending Unavailable HAWRYLUK, SUSHANT Attending Unavailable ALEXEY, MIKO Attending Unavailable HAWRYLUK, SUSHANT Referring Unavailable THAO, CHARLIE Attending Unavailable HAWRYLUK, SUSHANT Referring Unavailable THAO, CHARLIE Attending Unavailable HAWRYLUK, SUSHANT Referring Unavailable THAO, CHARLIE Attending Unavailable HAWRYLUK, SUSHANT Referring Unavailable THAO, CHARLIE Attending Unavailable HAWRYLUK, SUSHANT Referring Unavailable THAO, CHARLIE Attending Unavailable HAWRYLUK, SUSHANT Referring Unavailable THAO, CHARLIE Attending Unavailable HAWRYLUK, SUSHANT Referring Unavailable HAWRYLUK, SUSHANT Referring Unavailable HAWRYLUK, SUSHANT Referring Unavailable PROVIDER, UNKNOWN Admitting Unavailable PROVIDER, UNKNOWN Attending Unavailable PROVIDER, UNKNOWN Attending Unavailable PROVIDER, UNKNOWN Admitting Unavailable Medications Current Medications Medication Drug Class(es) Dates Sig (Normalized) Sig (Original) gabapentin 300 mg oral capsule (1 source) Anti-epileptic Agent Start: 01-21-2022 End: 07-20-2022 gabapentin 300 mg oral capsule Dose : 300 mg = 1 cap(s), Oral, TID, Patient to increase his gabapentin to twice a day for a week and then 3 times a day if tolerated, # 90 cap(s), 5 Refill(s), Pharmacy: [id number], Lumbar radiculopathy Lumbar herniated disc, 177.8, cm, ... Start Date: 01/21/22 Stop Date: 07/20/22 Status: Ordered [place] Essentials (1 source) Start: 01-21-2022 [place] Essentials Oral, BID, 0 Refill(s) Start Date: 01/21/22 Status: Ordered Completed/Discontinued Medications Medication Drug Class(es) Dates Sig (Normalized) Sig (Original) acetaminophen 325 mg / HYDROcodone bitartrate 5 mg oral tablet (9 sources) Opioid Agonist Start: 01-21-2022 End: 11-07-2022 HYDROcodone-acetami nophen (NORCO) 5-325 mg per tablet Take by mouth. 0 01/21/2022 11/07/2022 Discontinued Problems Active Problems Problem Classification Problem Date Documented Date Episodic/Chronic Esophageal disorders (9 sources) Gastroesophageal reflux disease; Translations: [Gastro-esophageal reflux disease without esophagitis] Onset: 08-04-2022 01-21-2022 Chronic Essential hypertension (9 sources) Hypertensive disorder; Translations: [Essential hypertension] Onset: 01-17-2022 01-21-2022 Chronic Nutritional deficiencies (8 sources) Vitamin D deficiency; Translations: [Vitamin D deficiency, unspecified] Onset: 06-27-2021 08-04-2022 Chronic Osteoarthritis (2 sources) Arthritis; Translations: [Osteoarthritis of right hip joint] 01-21-2022 Chronic Other connective tissue disease (1 source) Muscle pain; Translations: [Myalgia, other site] Episodic Other non-traumatic joint disorders (4 sources) Pain in right hip; Translations: [Pain in right hip] Onset: 03-13-2022 Episodic Spondylosis; intervertebral disc disorders; other back problems (20 sources) Lumbosacral spondylosis without myelopathy; Translations: [Prolapsed lumbar intervertebral disc] Onset: 03-25-2022 01-21-2022 Chronic Spondylosis; intervertebral disc disorders; other back problems (12 sources) Lumbar radiculopathy; Translations: [Sciatica] Onset: 08-04-2022 01-21-2022 Episodic Past or Other Problems Problem Classification Problem Date Documented Da te Episodic/Chronic E Codes: Fall (8 sources) Unspecified fall due to ice and snow, initial encounter; Translations: [Fall from other slipping, tripping, or stumbling] Onset: 08-04-2022 08-04-2022 Episodic Other connective tissue disease (9 sources) Fibromyalgia; Translations: [Fibromyalgia] Onset: 08-04-2022 01-21-2022 Episodic Other lower respiratory disease (9 sources) Wheezing; Translations: [Wheezing] Onset: 08-04-2022 01-21-2022 Episodic Other non-traumatic joint disorders (17 sources) Pain in right hip joint; Translations: [Pain in right hip] Onset: 03-13-2022 Episodic Results Test Name Value Interpretation Reference Range Facil ity Vital Signs Date Time Vital Sign Value Performing Clinician Faci lity 09-22-2022 09:13-0500 Body height 177.8 cm Sushant Marie MD, PhD Work Phone: [facility] 09-22-2022 09:13-0500 Body weight 88.2 kg Sushant Marie MD, PhD Work Phone: [facility] 09-22-2022 09:13-0500 Diastolic blood pressure 85 mm[Hg] Sushant Marie MD, PhD Work Phone: [facility] 09-22-2022 09:13-0500 Heart rate 68 /min Sushant Marie MD, PhD Work Phone: [facility] 09-22-2022 09:13-0500 SaO2% (BldA) [Mass fraction] 98 % Sushant Marie MD, PhD Work Phone: [facility] 09-22-2022 09:13-0500 Systolic blood pressure 135 mm[Hg] Sushant Marie MD, PhD Work Phone: [facility] 08-19-2022 14:50-0500 Body height 172.7 cm Miko Alexey DO Work Phone: [facility] 08-19-2022 14:50-0500 Body weight 88.91 kg Miko Alexey DO Work Phone: [facility] 08-19-2022 14:50-0500 Heart rate 63 /min Miko Alexey DO Work Phone: [facility] 08-19-2022 14:50-0500 SaO2% (BldA) [Mass fraction] 96 % Miko Alexey DO Work Phone: [facility] 03-13-2022 15:090400 Body height 172.7 cm Sushant Marie MD, PhD Work Phone: [facility] 03-13-2022 15:09-0400 Body weight 98.5 kg Sushant Marie MD, PhD Work Phone: [facility] 03-13-2022 15:09-0400 Diastolic blood pressure 66 mm[Hg] Sushant Marie MD, PhD Work Phone: [facility] 03-13-2022 15:090400 Heart rate 75 /min Sushant Marie MD, PhD Work Phone: [facility] 03-13-2022 15:09-0400 SaO2% (BldA) [Mass fraction] 97 % Sushant Marie MD, PhD Work Phone: [facility] 03-13-2022 15:09-0400 Systolic blood pressure 122 mm[Hg] Sushant Marie MD, PhD Work Phone: [facility] Encounters Encounter Date Encounter Type Care Provider Facility Start: 11-07-2022 End: 11-07-2022 ambulatory UNKNOWN PROVIDER Facility:[facility] Start: 10-10-2022 Orders Only Art Coy MD Work Phone: Pain Management Procedures Date Procedure Procedure Detail Performing Clinician Start: 08-28-2022 Mri spinal canal lum bar w/o contrast material Sushant Marie MD, PhD Work Phone: Start: 11-19-2021 Epidural steroid injection ROM JETT MD Plan of Treatment Date Care Activity Detail Author Start: 03-27-2023 Influenza vaccination Influenza Vaccine (#1) [facility] Start: 07-27-2022 ADVANCE DIRECTIVE DISCUSSION ADVANCE DIRECTIVE DISCUSSION [facility] Start: 07-27-2022 DEPRESSION ASSESSMENT DEPRESSION ASSESSMENT [facility] Start: 03-27-2022 Influenza vaccination INFLUENZA (#1) [facility] Start: 07-27-2021 ADVANCE DIRECTIVE DISCUSSION ADVANCE DIRECTIVE DISCUSSION [facility] Start: 07-27-2021 DEPRESSION ASSESSMENT DEPRESSION ASSESSMENT [facility] Start: 2018 Pneumococcal Vaccine: 65+ (1 - PCV) Pneumococcal Vaccine: 65+ (1 - PCV) [facility] Start: 2018 PNEUMOCOCCAL: 65+ (1 - PCV) PNEUMOCOCCAL: 65+ (1 - PCV) [facility] Start: 2013 RSV Vaccine (1 - 1-dose 60+ series) RSV Vaccine (1 - 1-dose 60+ series) [facility] Start: 2008 PROSTATE CANCER SCREENING DISCUSSION PROSTATE CANCER SCREENING DISCUSSION [facility] Start: 2003 SHINGRIX VACCINE (1 of 2) SHINGRIX VACCINE (1 of 2) [facility] Start: 1998 COLOGUARD (FIT-DNA) COLOGUARD (FIT-DNA) [facility] Start: 1998 Colonoscopy COLONOSCOPY [facility] Start: 1998 COLORECTAL CANCER SCREENING COLORECTAL CANCER SCREENING [facility] Start: [address] COLONOGRAPHY [facility] Start: 1998 DIABETES SCREEN DIABETES SCREEN [facility] Start: 1998 Diabetes Screening Diabetes Screening [facility] Start: 1998 FECAL OCCULT BLOOD FECAL OCCULT BLOOD [facility] Start: 1998 SIGMOIDOSCOPY SIGMOIDOSCOPY [facility] Start: 1988 Lipid 1996 panel - Serum or Plasma Lipid Screening [facility] Start: 1988 LIPID SCREEN LIPID SCREEN [facility] Start: 1972 Urine microalbumin profile [facility] Start: 1971 ANNUAL PCP TEAM CHRONIC DISEASE VISIT ANNUAL PCP TEAM CHRONIC DISEASE VISIT [facility] Start: 1971 BP CONTROLLED (<130/80) BP CONTROLLED (<130/80) [facility] Start: 1971 HEPATITIS C SCREENING HEPATITIS C SCREENING [facility] Start: 1965 Adult depression screening assessment DEPRESSION SCREENING [facility] Start: 01-14-1956 COVID-19 VACCINE (#1) COVID-19 VACCINE (#1) [facility] PT PLAN OF CARE CERTIFICATION PT PLAN OF CARE CERTIFICATION Procedures Routine Osteoarthritis of spine with radiculopathy, lumbar region Ordered: 03/25/2022 [facility] Work Phone: Payers Date Payer Category Payer Medicare UHC AARP MEDICAR E [facility] AARP MEDICARE HMO [id number] 2021-Present [phone] [address] [address] [place] [address] O [id number] 2021 Medicare [id number] Social History Date Type Detail Facility Start: 01-21-2022 End: 03-13-2022 Tobacco smoking status Never smoked tobacco (finding) [facility] Sex Assigned At Sex [facility] Start: 03-13-2022 Tobacco use and exposure Smokeless tobacco non-user [facility] Start: 03-13-2022 End: 08-19-2022 Alcohol intake Ex-drinker (finding) [facility] Start: 1955 Sex Assigned At Not on file [facility] Start: 03-03-2022 End: 03-13-2022 Exposure to SARS-CoV-2 (event) Not sure [facility] Start: 08-19-2022 History of Social function [facility] Start: 08-19-2022 Tobacco use panel [facility] National Score (1-100), lower number is lower risk 47 [facility] Clinical Notes 03-13-2022 to 10-07-2022 Telephone Encounter - Estelita Tucker Ma - 10/07/2022 3:36 PM EDTTelephone Encounter - Eden Zamorano RN - 10/02/2022 1:19 PM Nestor Marie MD, PhD - 09/22/2022 9:07 AM ESTPatient Instructions Note Date & Type Note Facility 10-07-2022 Miscellaneous Notes Patient contacted via telephone to schedule injection. Patient scheduled for: November 07 Hold the following medication(s): - Fish oil for 5 days prior Pre-procedure Instructions reviewed over telephone and a list of instructions were sent via mail. Patient left voicemail 10/02/2022 at 1005 Patient calling to schedule Right Hip Joint Injection as recommended by Dr. Sushant Marie did not put in spine intervention order but did it under a consult to pain management order Office to contact patient within 5 business days to schedule Will have Dr. Coy review referral as well Patient added to injection scheduling spreadsheet at this time in [facility] Call back number: [phone] documented in this encounter [facility] 09-22-2022 History of Presen t illness Narrative NEUROSURGERY FOLLOW UP OFFICE NOTE Sushant Marie MD, PhD Date of visit: September 22, 2022 Patient Name: Mr.Alan Matthew Salguero Date of : 1955 Current Age: [age] year old Sex: male MRN/E# [id number] Last Office Visit: 08/06/2022 Chief Complaint: Patient presents with: Established Patient SUBJECTIVE: HPI The patient noted 15 years ago he was shoveling and felt a sharp shooting pain that led him to the ED. He noted since June of that time, his pain had worsened. He noted bilateral PSIS region pain. He noted the pain was worse on the right than the left. He noted the pain radiated down his left gluteal aspect posteriorly down his right thigh stopping at the knee. He noted the pain radiated into his right gluteal aspect and down his posterior thigh stopping at the ankle. He noted the pain was worse with walking, activity and prolonged standing. He noted muscle cramps intermittently to his bilateral lower extremities. He was to obtain hip xray's and participate in a course of physical therapy. At his last visit on 08/04/2022 he noted he symptoms had worsened with physical therapy. He noted bilateral hip/PSIS region pain that radiated into his bilateral groin. He noted the pain radiated down his left gluteal aspect in to his posterior thigh stopping at the knee. He noted the pain radiated into his right gluteal aspect and down his posterior thigh to his big toe. He noted the pain was worse with prolonged walking. He noted weakness to his right lower extremity. His symptoms were worse on the right than the left. It was recommended that he obtain an opinion from orthopedics for his right hip. He was to obtain a right L5 nerve root block. He was to repeat his MRI lumbar spine. He was to follow up once completed, prompting his visit today. Today he states that he noticed a few days of relief of his pain after his L5 nerve block on 09/05/2022. He notes since then, his pain has returned. He notes his pain is worse with driving and at the end of the day his right hip is very painful. He continues with bilateral low back, hip pain that radiates into his bilateral groin. He denies any falls, bowel or bladder dysfunction. He notes the pain radiates into his left gluteal aspect down his posterior thigh to the knee. The pain radiates down his right gluteal aspect down his posterior thigh to the first digit. He notes his symptoms are worse with sitting and walking. He notes weakness to his right lower extremity. He notes seeing orthopedics and noted no changes. He presents for imaging review, evaluation and plan of care. Symptoms: bilateral PSIS/ hip pain with the right being worse than the left. Radiating into bilateral groin. Down right glute and posterior leg into big toe. Left gluteal pain radiating down posterior thigh to knee. Weakness on the right lower extremity. Smoker: denies Diabetic: denies Anticoagulants / Antiplatelets: denies PREVIOUS CONSERVATIVE TREATMENTS: Ultram Oral steroids Home exercises Chiropractor Gabapentin Naproxen Baclofen TESI L4-5 11/19 EMG Physical therapy Natanael- 03/25/2022, 04/01/2022, 04/10/2022, 04/22/2022, 04/29/2022, 05/06/2022 Hydrocodone Right L5-S1 lumbar transforaminal epidural steroid injection under fluoroscopy. - pain management on 09/05/2022 PREVIOUS SURGERY: Prior left shoulder surgery. He also reports a previous procedure involving his right knee. PAIN EVALUATION 09/22/2022 0911 Pain Level: 6 Pain Location: Back-Lower Description: Aching;Shooting;Throbbing;Tightn ess Duration Units: Months Frequency: Continuous Intervention/Comfort measure: Heat PAST MEDICAL HISTORY Diagnosis Date Acid reflux Arthritis Fibromyalgia Hiatal hernia Hypercholesterolemia Hypertension PAST SURGICAL HISTORY Procedure Laterality Date HERNIA REPAIR HX Left INJ LUMBAR EPIDURAL SGL (AG) 09/05/2022 Right L5-S1 Lumbar Transfominal Epidural steroid Injection KNEE SURGERY HX Right 1999 SHOULDER SURGERY HX Left 03/27/2021 rotator cuff repair, ASD, Claviculectomy [facility] Dr Luz [place] SPINAL TAP PROCEDURE 2006 r/o MS TONSILLECTOMY & ADENOIDECTOMY <AGE 10 FAMILY HISTORY Problem Relation Age of Onset Brain Cancer Mother Ischemic Heart Disease Father Melanoma Father other (traumatic brain injury) Sister Stroke Brother ALLERGIES No Known Allergies Current Outpatient Medications Medication Sig Dispense Refill omega-3s/dha/epa/fish oil/D3 (OMEGA ESSENTIALS ORAL) Take by mouth. lisinopril-hydroCHLOROthiazide (PRINZIDE,ZESTORETIC) 20-12.5 mg per tablet Take 1 tablet by mouth once daily. atorvastatin (LIPITOR) 40 mg tablet Take 1 tablet by mouth once daily. omeprazole (PRILOSEC) 40 mg capsule Take 1 capsule by mouth once daily. HYDROcodone-acetaminophen (NORCO) 5-325 mg per tablet Take by mouth. (Patient not taking: No sig reported) OTC NUTRITIONAL SUPPLEMENT Take 4 capsules by mouth four times daily. OMEGA XL supplement (Patient not taking: Reported on 09/22/2022) No current facility-administered medications for this visit. REVIEW OF SYSTEMS Review of Systems Constitutional: Negative for diaphoresis, fatigue and fever. HENT: Negative for congestion, sinus pressure and sore throat. Eyes: Negative for discharge and itching. Respiratory: Negative for cough, chest tightness and shortness of breath. Cardiovascular: Negative for chest pain, palpitations and leg swelling. Gastrointestinal: Negative for constipation, diarrhea, nausea and vomiting. Endocrine: Negative for cold intolerance and heat intolerance. Genitourinary: Negative for difficulty urinating, frequency and urgency. Musculoskeletal: Positive for back pain and gait problem. Negative for neck pain and neck stiffness. Skin: Negative for rash and wound. Allergic/Immunologic: Negative for environmental allergies and food allergies. Neurological: Positive for weakness. Negative for dizziness, light-headedness, numbness and headaches. Hematological: Does not bruise/bleed easily. Psychiatric/Behavioral: Negative for agitation. The patient is not nervous/anxious. OBJECTIVE: BP 135/85 Pulse 68 Ht 5' 10 (1.78m) Wt 194 lb 7.1 oz (88.2kg) SpO2 98% BMI 27.90 kg/(m^2). Physical Exam I repeated a detailed physical examination with Beny today. He has numb feet bilaterally which I think is most likely be a neuropathy. He had full power in all lower extremity myotomes bilaterally. Straight leg raising was negative bilaterally. Femoral stretch testing was negative bilaterally. He had some discomfort with JOHN testing on the right but not the left. Data Review IMAGING STUDIES: MRI Lumbar Spine 08/28/2022: IMPRESSION: Spondylotic changes as discussed, notable at L4-5 with moderate canal stenosis and bilateral subarticular recess effacement. Large sliding-type hiatal hernia. Please see the body of report for additional findings and further discussion. Assessment and Plan: My sense when I examined Beny today was that he was less uncomfortable than when I had last seen him although he does feel that his symptoms are relatively constant. I think that the neck step that I would encourage is to try a right-sided hip joint injection. I think this is more likely to lead to symptomatic improvement then an injection of his right L1-2 disc. If the hip joint injection is not successful I think that the L1 II nerve root block could be tried. At this point I do not feel that Herminia is a good surgical candidate as I am having difficulty describing his lumbar spine pathology to his symptoms at this time. I would like to reassess Jon in 3 months time. 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 Attestation: The following portions of the patient's history were reviewed, confirmed, and updated as necessary: allergies, current medications, past family history, past medical history, past social history, past surgical history, problem list, HPI, and ROS obtained by others. Some elements may be copied from a previous office note and have been reviewed/updated where appropriate. All portions reflect current medical decision making from today. The clinical and radiographic findings as well as the risks, benefits and alternatives of treatment have been reviewed in detail with the patient. The patient was advised to call the office if symptoms worsen or new symptoms develop. The patient expressed understanding and is in agreement with plan. Sushant Marie MD, PhD This note was partially generated using [employer] voice recognition system, and there may be some incorrect words, spellings, and punctuation that were not noted in checking the note before saving. documented in this encounter [facility] 09-02-2022 Miscellaneous Notes Order signed off Patient contacted at this time Patient made aware that he may proceed with injection and odes not need to be seen in office Patient scheduled for 09/05/2022 Reviewed procedure instructions verbally Patient verbalizes understanding Patient instructed to contact office with any additional questions or concerns Dr. Coy reviewed case as recommended by Dr. Ssuhant Coy reviewed patient's MRI from 08/28/2022 Dr. Coy agrees to proceed with Right L5-S1 Lumbar Transforaminal Epidural Injection as recommended by Dr. Frank Coy states patient does not have to be seen in office an may proceed to be scheduled for procedure Spine intervention order pended to Dr. Marie for Right L5-S1 Lumbar Transforaminal Epidural Injection documented in this encounter [facility] 08-28-2022 Note HNO ID: [id number] Author: RT Valarie(R) Service: ? Author Type: Technologist Type: Progress Notes Filed: 08/28/2022 8:43 AM Note Text: Radiology Service Progress Note PATIENT NAME: Jon Salguero DATE OF SERVICE: August 28, 2022 TIME: 8:43 AM PATIENT IDENTITY VERIFICATION COMPLETED USING TWO (2) IDENTIFIERS: Name and Date of confirmed by patient verbally. FALL SCREENING: Has the patient had 2 falls in the last year or 1 fall with injury or currently using an Ambulatory Assistive Device (Walker, Cane, Wheelchair, Crutches, etc.)? No PATIENT GENDER DATA: Male PATIENT RELEVANT IMPLANT DATA REVIEWED: Yes RADIOLOGY DEPARTMENT: MR; Exam(s) Completed: Spine: Lumbar spine PERIPHERAL IV DATA: Not applicable SIGNED BY: RT Valarie(R) August 28, 2022 8:43 AM [facility] 08-28-2022 History of Presen t illness Narrative Radiology Service Progress Note PATIENT NAME: Jon Salguero DATE OF SERVICE: August 28, 2022 TIME: 8:43 AM PATIENT IDENTITY VERIFICATION COMPLETED USING TWO (2) IDENTIFIERS: Name and Date of confirmed by patient verbally. FALL SCREENING: Has the patient had 2 falls in the last year or 1 fall with injury or currently using an Ambulatory Assistive Device (Walker, Cane, Wheelchair, Crutches, etc.)? No PATIENT GENDER DATA: Male PATIENT RELEVANT IMPLANT DATA REVIEWED: Yes RADIOLOGY DEPARTMENT: MR; Exam(s) Completed: Spine: Lumbar spine PERIPHERAL IV DATA: Not applicable SIGNED BY: RT Valarie(R) August 28, 2022 8:43 AM documented in this encounter [facility] 08-22-2022 Note HNO ID: [id number] Author: Miko Blackburn, DO Service: ? Author Type: Physician Type: Progress Notes Filed: 08/22/2022 12:36 PM Note Text: Patient presents with: Right Hip - New Jon Salguero is a 67 year old male who presents for evaluation for right hip pain. The patient states he sustained a fall about 1.5 years ago and has had persistent right hip pain since that time. The patient reports posterior hip pain and when questioned, points to the level of his piriformis. The patient has been recently evaluated by Dr. Marie, neurosurgery for spinal stenosis. The patient does note radicular type symptoms radiating down his left thigh posteriorly stopping at the knee. He has muscle cramps intermittently in his bilateral lower extremities. The patient does note intermittent groin pain on the right. He has undergone physical therapy for his back. He is scheduled for MRI of his lumbar spine as well as injection of his L5 nerve root. Reviewed nursing note and current pain scale. PAST MEDICAL HISTORY Diagnosis Date Acid reflux Arthritis Fibromyalgia Hiatal hernia Hypercholesterolemia Hypertension PAST SURGICAL HISTORY Procedure Laterality Date HERNIA REPAIR HX Left KNEE SURGERY HX Right 1999 SHOULDER SURGERY HX Left 03/27/2021 rotator cuff repair, ASD, Claviculectomy [facility] Dr Luz [place] SPINAL TAP PROCEDURE 2006 r/o MS TONSILLECTOMY AND ADENOIDECTOMY FAMILY HISTORY Problem Relation Age of Onset Brain Cancer Mother Ischemic Heart Disease Father Melanoma Father other (traumatic brain injury) Sister Stroke Brother Social History Tobacco Use Smoking status: Never Smokeless tobacco: Never Substance Use Topics Alcohol use: Not Currently Drug use: Never Medications: Current Outpatient Medications Medication Sig omega-3s/dha/epa/fish oil/D3 (OMEGA ESSENTIALS ORAL) Take by mouth. lisinopril-hydroCHLOROthiazide (PRINZIDE,ZESTORETIC) 20-12.5 mg per tablet Take 1 tablet by mouth once daily. atorvastatin (LIPITOR) 40 mg tablet Take 1 tablet by mouth once daily. omeprazole (PRILOSEC) 40 mg capsule Take 1 capsule by mouth once daily. OTC NUTRITIONAL SUPPLEMENT Take 4 capsules by mouth four times daily. OMEGA XL supplement HYDROcodone-acetaminophen (NORCO) 5-325 mg per tablet Take by mouth. (Patient not taking: Reported on 08/19/2022) No current facility-administered medications for this visit. Allergies: ALLERGIES No Known Allergies ROS: Review of systems: General: No fever or chills, no weight loss, no weakness, no fatigue Skin: No rashes, no dryness HEENT: No vision changes, no nasal congestion, no sore throat, no sinus pressure Neck: No lymphadenopathy, no pain or stiffness Respiratory: No cough, no SOB, no wheeze Cardiovascular: no chest, no palpitations, no edema GI: No abdominal pain, no nausea, no vomiting, no diarrhea, no constipation : No increased frequency, no dysuria, no hematuria M/S: See HPI Endocrine: No polyuria, no polydipsia, no cold or heat intolerance Neuro: No numbness, no tingling, no weakness, no dizziness Psych: No change in mood Physical Examination: Pulse 63 Ht 5' 8 (1.73m) Wt 196 lb (88.9kg) SpO2 96% BMI 29.81 kg/(m2). Right Hip: He is alert, oriented, and in no acute distress. An antalgic gait noted. Normal alignment. No leg length discrepancy Skin is intact. No masses noted along hip region. He exhibits pain with flexion and rotation, especially internal. 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 Full ROM of the knee and ankle seen. NVI distally. Images: XR right hip: Mild degenerative changes of the bilateral hips with anterior lateral joint space narrowing. Cam deformity, mild to moderate present of the bilateral hips. No acute fracture or dislocation Assessment and Plan: 1. Primary osteoarthritis of right hip - ICD9: 715.15, ICD10: M16.11 (primary diagnosis) 2. Piriformis muscle pain - ICD9: 729.1, ICD10: M79.18 The physical exam and imaging findings were discussed with the patient . The patient has mild degenerative changes of his bilateral hips with intermittent groin pain. He does have tenderness to palpation at the level of the piriformis. We discussed the complex relationship between the hip and the spine. We discussed continuing focused physical therapy on the patient's hip as well as his piriformis. The patient is undergoing MRI of his lumbar spine soon which I encouraged him to do. We discussed th (more content not included)... [facility] 08-22-2022 History of Presen t illness Narrative Patient presents with: Right Hip - Brian Salguero is a 67 year old male who presents for evaluation for right hip pain. The patient states he sustained a fall about 1.5 years ago and has had persistent right hip pain since that time. The patient reports posterior hip pain and when questioned, points to the level of his piriformis. The patient has been recently evaluated by Dr. Marie, neurosurgery for spinal stenosis. The patient does note radicular type symptoms radiating down his left thigh posteriorly stopping at the knee. He has muscle cramps intermittently in his bilateral lower extremities. The patient does note intermittent groin pain on the right. He has undergone physical therapy for his back. He is scheduled for MRI of his lumbar spine as well as injection of his L5 nerve root. Reviewed nursing note and current pain scale. PAST MEDICAL HISTORY Diagnosis Date Acid reflux Arthritis Fibromyalgia Hiatal hernia Hypercholesterolemia Hypertension PAST SURGICAL HISTORY Procedure Laterality Date HERNIA REPAIR HX Left KNEE SURGERY HX Right 1999 SHOULDER SURGERY HX Left 03/27/2021 rotator cuff repair, ASD, Claviculectomy WAS Dr Luz [place] SPINAL TAP PROCEDURE 2006 r/o MS TONSILLECTOMY & ADENOIDECTOMY <AGE 10 FAMILY HISTORY Problem Relation Age of Onset Brain Cancer Mother Ischemic Heart Disease Father Melanoma Father other (traumatic brain injury) Sister Stroke Brother Social History Tobacco Use Smoking status: Never Smokeless tobacco: Never Substance Use Topics Alcohol use: Not Currently Drug use: Never Medications: Current Outpatient Medications Medication Sig omega-3s/dha/epa/fish oil/D3 (OMEGA ESSENTIALS ORAL) Take by mouth. lisinopril-hydroCHLOROthiazide (PRINZIDE,ZESTORETIC) 20-12.5 mg per tablet Take 1 tablet by mouth once daily. atorvastatin (LIPITOR) 40 mg tablet Take 1 tablet by mouth once daily. omeprazole (PRILOSEC) 40 mg capsule Take 1 capsule by mouth once daily. OTC NUTRITIONAL SUPPLEMENT Take 4 capsules by mouth four times daily. OMEGA XL supplement HYDROcodone-acetaminophen (NORCO) 5-325 mg per tablet Take by mouth. (Patient not taking: Reported on 08/19/2022) No current facility-administered medications for this visit. Allergies: ALLERGIES No Known Allergies ROS: Review of systems: General: No fever or chills, no weight loss, no weakness, no fatigue Skin: No rashes, no dryness HEENT: No vision changes, no nasal congestion, no sore throat, no sinus pressure Neck: No lymphadenopathy, no pain or stiffness Respiratory: No cough, no SOB, no wheeze Cardiovascular: no chest, no palpitations, no edema GI: No abdominal pain, no nausea, no vomiting, no diarrhea, no constipation : No increased frequency, no dysuria, no hematuria M/S: See HPI Endocrine: No polyuria, no polydipsia, no cold or heat intolerance Neuro: No numbness, no tingling, no weakness, no dizziness Psych: No change in mood Physical Examination: Pulse 63 Ht 5' 8 (1.73m) Wt 196 lb (88.9kg) SpO2 96% BMI 29.81 kg/(m^2). Right Hip: He is alert, oriented, and in no acute distress. An antalgic gait noted. Normal alignment. No leg length discrepancy Skin is intact. No masses noted along hip region. He exhibits pain with flexion and rotation, especially internal. 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 Full ROM of the knee and ankle seen. NVI distally. Images: XR right hip: Mild degenerative changes of the bilateral hips with anterior lateral joint space narrowing. Cam deformity, mild to moderate present of the bilateral hips. No acute fracture or dislocation Assessment and Plan: 1. Primary osteoarthritis of right hip - ICD9: 715.15, ICD10: M16.11 (primary diagnosis) 2. Piriformis muscle pain - ICD9: 729.1, ICD10: M79.18 The physical exam and imaging findings were discussed with the patient . The patient has mild degenerative changes of his bilateral hips with intermittent groin pain. He does have tenderness to palpation at the level of the piriformis. We discussed the complex relationship between the hip and the spine. We discussed continuing focused physical therapy on the patient's hip as well as his piriformis. The patient is undergoing MRI of his lumbar spine soon which I encouraged him to do. We discussed the possibility of intra-articular injection of the right hip which would have both diagnostic and therapeutic properties in the future. I encouraged the patient to keep track of his symptoms following his L5 nerve root injection to see if symptoms resolve. I encouraged the patient to follow-up following spine injection if his symptoms fail to improve. Miko Blackburn D.O. Medical Decision Making: Problems: Moderate: 1+ chronic illnesses with change Data: Unique source(s) for external note(s) reviewed: 1 Unique test result(s) reviewed: 3+ Risk: Low: Low risk from testing/treatment Medical Decision Making Level: 4 - Moderate documented in this encounter [facility] 08-06-2022 Miscellaneous Notes Multiple referrals placed for patient both via [facility] online portal AND [facility] referral fax at [phone] Per most recent NSGY note from Dr. Shearer, pt requesting specialty locations closer to residence in [place], [place]. Faxed referrals to [facility] at [phone] requesting [facility] ( or any additional locations close to [place]) for PM and Ortho. Referral for ortho ( [facility]) has been submitted via the [facility] Internal Referral request form on the [facility] Appointment Portal was placed before seeing providers OV notes requesting alternative locations. Confirmation # [id number] Autumn Burr MA documented in this encounter [facility] 08-04-2022 Note HNO ID: [id number] Author: Sushant Marie MD, PhD Service: ? Author Type: Physician Type: Progress Notes Filed: 08/04/2022 12:35 PM Note Text: NEUROSURGERY FOLLOW UP OFFICE NOTE Sushant Marie MD, PhD Date of visit: August 04, 2022 Patient Name: Mr.Alan Matthew Salguero Date of : 1955 Current Age: [age] year old Sex: male MRN/E# [id number] Last Office Visit: 03/21/2022 Chief Complaint: Patient presents with: Established Patient SUBJECTIVE: HPI At his last visit on 03/13/2022 he noted 15 years ago he was shoveling and felt a sharp shooting pain that led him to the ED. He noted since June of that time, his pain had worsened. He noted bilateral PSIS region pain. He noted the pain was worse on the right than the left. He noted the pain radiated down his left gluteal aspect posteriorly down his right thigh stopping at the knee. He noted the pain radiated into his right gluteal aspect and down his posterior thigh stopping at the ankle. He noted the pain was worse with walking, activity and prolonged standing. He noted muscle cramps intermittently to his bilateral lower extremities. It was recommended that he obtain hip xray's. He was to participate in a course of physical therapy. He was to follow up in 6 weeks after completion, prompting his visit today. Today he states after participating in physical therapy, this worsened his symptoms. He notes bilateral hip/ PSIS region pain that radiates into his bilateral groin. He notes the pain radiates down his left gluteal aspect down his posterior thigh stopping at the knee. He notes the pain radiates into his right gluteal aspects down his posterior thigh to his big toe. He denies numbness and tingling. He notes the pain is worsened with prolonged walking. He notes his pain is stabbing in nature. He notes weakness to his right lower extremity. He notes his symptoms are worse on the right than the left. He denies any falls, bowel or bladder dysfunction. He notes taking Trion at night that helps relieve some of his pain so he is able to sleep. He presents for imaging review, evaluation and plan of care. Symptoms: bilateral PSIS/ hip pain with the right being worse than the left. Radiating into bilateral groin. Down right glute and posterior leg into big toe. Left gluteal pain radiating down posterior thigh to knee. Weakness on the right lower extremity. Smoker: denies Diabetic: denies Anticoagulants / Antiplatelets: denies PREVIOUS CONSERVATIVE TREATMENTS: Ultram Oral steroids Home exercises Chiropractor Gabapentin Naproxen Baclofen TESI L4-5 11/19 EM[facility] Physical therapy [facility]- 03/25/2022, 04/01/2022, 04/10/2022, 04/22/2022, 04/29/2022, 05/06/2022 Hydrocodone PREVIOUS SURGERY: Prior left shoulder surgery. He also reports a previous procedure involving his right knee. PAIN EVALUATION 08/04/2022 0858 Pain Level: 6 Pain Location: Back-Lower Description: Aching;Throbbing;Stiffness Duration Units: Months Frequency: Continuous Intervention/Comfort measure: Medication;Therapeutic techniques-CPRP PAST MEDICAL HISTORY Diagnosis Date Acid reflux Arthritis Fibromyalgia Hiatal hernia Hypercholesterolemia Hypertension PAST SURGICAL HISTORY Procedure Laterality Date HERNIA REPAIR HX Left KNEE SURGERY HX Right 1999 SHOULDER SURGERY HX Left 03/27/2021 rotator cuff repair, ASD, Claviculectomy [facility] Dr Luz [place] SPINAL TAP PROCEDURE 2006 r/o MS TONSILLECTOMY AND ADENOIDECTOMY History reviewed. No pertinent family history. ALLERGIES No Known Allergies Current Outpatient Medications Medication Sig Dispense Refill omega-3s/dha/epa/fish oil/D3 (OMEGA ESSENTIALS ORAL) Take by mouth. HYDROcodone-acetaminophen (NORCO) 5-325 mg per tablet Take by mouth. lisinopril-hydroCHLOROthiazide (PRINZIDE,ZESTORETIC) 20-12.5 mg per tablet Take 1 tablet by mouth once daily. atorvastatin (LIPITOR) 40 mg tablet Take 1 tablet by mouth once daily. omeprazole (PRILOSEC) 40 mg capsule Take 1 capsule by mouth once daily. OTC NUTRITIONAL SUPPLEMENT Take 4 capsules by mouth four times daily. OMEGA XL supplement No current facility-administered medications for this visit. REVIEW OF SYSTEMS Review of Systems Constitutional: Negative for diaphoresis, fatigue and fever. HENT: Negative for congestion, sinus pressure and sore throat. Eyes: Negative for discharge and itching. Respiratory: Negative for cough, chest tightness and shortness of breath. Cardiovascular: Negative for chest pain, palpitations and leg swelling. Gastrointestinal: Negative for constipation, diarrhea, nausea and vomiting. Endocrine: Negative for cold intolerance and heat intolerance. Genitourinary: Negative for difficulty urinating, frequency and urgency. Musculoskeletal: Positive for gait problem. Negative for back pain, neck pain and neck stiffness. Hip pain Skin: Negative for rash and wound. Allergic/Immunologic: Ne (more content not included)... [facility] 07-31-2022 Note HNO ID: [id number] Author: Charlie Elkins PT Service: ? Author Type: Physical Therapist Type: Progress Notes Filed: 07/31/2022 4:41 PM Note Text: 07/31/2022 [facility] PHYSICAL THERAPY DISCONTINUANCE OF CARE Plan of Care Period: Start of Care Date: 03/25/22 Last Visit Date: 05/06/2022 Therapy Program: The following is a summary of the interventions provided for this episode of care; Therapeutic exercise and Manual therapy Assessment: The following is the goal status: Goals updated 04/29/2022 Goals for Episode of Care: created on 03/25/22 through 06/03/22 Pt will be able to walk for 30 min without increased pain - Not Met, will continue Pt will demo improved RLE strength in 8 weeks or less - Not met, will continue Isabela in home exercise program. - Met so far Pt will report improvement in pain by 50% in 8 weeks or less for improved QOL - Progressing, will continue Patient Goals: Decrease symptoms Based on the most recent progress report, patient was progressing slower than expected toward functional goals based on documented subjective information on progress. Reason for Discontinuation of Care: Patient has not returned to therapy or scheduled additional follow-up appointments. Charlie Elkins PT [facility] 05-06-2022 Note HNO ID: [id number] Author: Charlie Elkins PT Service: ? Author Type: Physical Therapist Type: Progress Notes Filed: 05/08/2022 1:42 PM Note Text: Episode Visit Count: 6 Therapist That Will Accept/Oversee The Plan Of Care: Charlie Elkins Start of Care Date: 03/25/22 Onset Date: 06/26/22 Plan of Care Certification Date: 04/29/22 Next Certification Due Date: 06/03/22 Patient Identified by Name and Date of : Yes REHABILITATION AND SPORTS THERAPY PHYSICAL THERAPY TREATMENT NOTE ASSESSMENT: Jon Salguero tolerated the session with decreased symptoms. He demonstrated improvements in LE pain post manual therapy. The patient will continue to benefit from ongoing skilled physical therapy to progress toward set goals. PLAN FOR NEXT VISIT: Assess L spine SUBJECTIVE: Patient Reason for Visit: Pt states he is in pain today and not better than the last visit. Pain: Pain Pain Location: Leg - Right OBJECTIVE MEASURES WITH LEVEL OF FUNCTION: Traction does momentarily relieve toe pain TREATMENT: Therapeutic Exercise: 1: Hooklying Core bracing on Stabilizer to 60 mmHg x 10 2: Hooklying core bracing Stabilizer 60 mmHg with marches x 10 3: Hooklying core bracing to 60 mmHg 3 breaths 2 x 10 Skilled Intervention: Patient was educated in proper exercise technique and purpose for exercises. Provided written instruction for home exercise program to facilitate proper performance and compliance. Correct performance of therapeutic exercises was facilitated with verbal and visual cuing. Manual Therapy: 1: Supine manual lumbar traction x 20 min Skilled Intervention: Manual skills to improve joint mobility, ROM, and decrease pain. Utilized anatomy knowledge of the therapist, and assessment of patient's response to intervention. Billing Therapeutic Exercise Treatment Minutes: 20 Manual TherapyTreatment Minutes: 20 Total Treatment Time Minutes (timed/untimed): 40 Charlie Elkins PT [facility] 05-06-2022 History of Presen t illness Narrative Episode Visit Count: 6 Therapist That Will Accept/Oversee The Plan Of Care: Charlie Elkins Start of Care Date: 03/25/22 Onset Date: 06/26/22 Plan of Care Certification Date: 04/29/22 Next Certification Due Date: 06/03/22 Patient Identified by Name and Date of : Yes REHABILITATION AND SPORTS THERAPY PHYSICAL THERAPY TREATMENT NOTE ASSESSMENT: Jon Salguero tolerated the session with decreased symptoms. He demonstrated improvements in LE pain post manual therapy. The patient will continue to benefit from ongoing skilled physical therapy to progress toward set goals. PLAN FOR NEXT VISIT: Assess L spine SUBJECTIVE: Patient Reason for Visit: Pt states he is in pain today and not better than the last visit. Pain: Pain Pain Location: Leg - Right OBJECTIVE MEASURES WITH LEVEL OF FUNCTION: Traction does momentarily relieve toe pain TREATMENT: Therapeutic Exercise: 1: Hooklying Core bracing on Stabilizer to 60 mmHg x 10 2: Hooklying core bracing Stabilizer 60 mmHg with marches x 10 3: Hooklying core bracing to 60 mmHg 3 breaths 2 x 10 Skilled Intervention: Patient was educated in proper exercise technique and purpose for exercises. Provided written instruction for home exercise program to facilitate proper performance and compliance. Correct performance of therapeutic exercises was facilitated with verbal and visual cuing. Manual Therapy: 1: Supine manual lumbar traction x 20 min Skilled Intervention: Manual skills to improve joint mobility, ROM, and decrease pain. Utilized anatomy knowledge of the therapist, and assessment of patient's response to intervention. Billing Therapeutic Exercise Treatment Minutes: 20 Manual TherapyTreatment Minutes: 20 Charlie Elkins PT documented in this encounter [facility] 04-29-2022 Note HNO ID: [id number] Author: Charlie Elkins PT Service: ? Author Type: Physical Therapist Type: Progress Notes Filed: 04/29/2022 6:22 PM Note Text: Episode Visit Count: 5 Therapist That Will Accept/Oversee The Plan Of Care: Charlie Elkins Start of Care Date: 03/25/22 Onset Date: 06/26/22 Plan of Care Certification Date: 04/29/22 Next Certification Due Date: 06/03/22 Patient Identified by Name and Date of : Yes REHABILITATION AND SPORTS THERAPY PHYSICAL THERAPY PROGRESS REPORT PLAN OF CARE UPDATE: Assessment: Jon Salguero demonstrates difficulty with standing, working and walking and improvements in overall pain intensity, decreased nerve compression and increased level of independence with the HEP. He hasprogressed toward goals. Patient continues to present with impairments in ADL's, independence in exercise, overall function, range of motion, and strength that interfere with walking;standing . Current prognosis is Good due to: current objective clinical presentation . Pt may continue to benefit from manual techniques and to begin core strengthening exercises. He will benefit from continued skilled therapy services to meet the updated goals for this plan of care as noted below. Goals updated 04/29/2022 Goals for Episode of Care: created on 03/25/22 through 06/03/22 Pt will be able to walk for 30 min without increased pain - Not Met, will continue Pt will demo improved RLE strength in 8 weeks or less - Not met, will continue Isabela in home exercise program. - Met so far Pt will report improvement in pain by 50% in 8 weeks or less for improved QOL - Progressing, will continue Patient Goals: Decrease symptoms Patient Goals: Decrease symptoms Planned Interventions, Frequency, and Duration: 1x/week, 4 weeks Total Number of Visits Planned: 4 Patient to be seen for Therapeutic exercise ([id number]);Neuromuscular re-education (79468);Manual therapy (88303);Self-longterm management ([id number]);Patient/Family/Caregiver Education PLAN FOR NEXT VISIT: Trial core strengthening for TA and RA if tolerated Classification Low Back Pain Subgroup Classification: Spinal mobilization subgroup: recommended visits 6. Spinal Mobilization Subgroup Classification based on: ROM loss;endrange pain SUBJECTIVE: Patient Reason for Visit: Pt feels like he is feeling better overall. Pt pain has gotten worse since the last visit. The toe and heel and the hips are painful. Had injections in the past which did not help so much. Patient Goals: Decrease symptoms Functional Limitations: walking;standing Prior Level of Function: Independent without limitations Intake Information: Prescription present Previous Treatment: Injections Pain: Pain Pain Location: Leg - Right PROMIS Scales T-scores: mean of general population = 50. 5 points is clinically meaningfully difference Percentiles provide an indication of how the patient's score ranks in relation to the general population. Higher percentile rankings indicate better function/quality of life. 50th percentile is the average of the general population and indicates half of respondents had a worse score. T-scores: mean of general population = 50. 5 points is clinically meaningfully difference Percentiles provide an indication of how the patient's score ranks in relation to the general population. Higher percentile rankings indicate better function/quality of life. 50th percentile is the average of the general population and indicates half of respondents had a worse score. OBJECTIVE MEASURES WITH LEVEL OF FUNCTION: Lumbar Spine AROM Lumbar Flexion: Minimal limitation Lumbar Extension: Moderate limitation;Peripheralizing Lumbar R Side-Bend: Minimal limitation;Peripheralizing Lumbar L Side-Bend: Moderate limitation LE AROM Tested?: Yes LE AROM R LE AROM: WNL L LE AROM: WNL LE Strength R Hip Flexion (L2): 4/5 R Knee Extension (L3): 4/5 R Knee Flexion: 4/5 R Ankle Dorsiflexion (L4): 4/5 Minimal swelling of R big toe and no redness observed Some limitation of R 1st MTP and PIP joint in flexion Numb at R L5 nerve distribution at 1st and 2nd digit TREATMENT: Manual Therapy: 1: Supine Lumbar manual traction with strap and stool sustained pull x 17 minutes 2: R L5/S1 facet opening mob grade 3 x 5 3: All objective measures taken this session Skilled Intervention: Manual skills to improve joint mobility, ROM, and decrease pain. Utilized anatomy knowledge of the therapist, and assessment of patient's response to intervention. Billing Manual TherapyTreatment Minutes: 45 Total Treatment Time Minutes (timed/untimed): 45 Charlie Elkins PT [facility] 04-22-2022 Note HNO ID: [id number] Author: Charlie Elkins PT Service: ? Author Type: Physical Therapist Type: Progress Notes Filed: 04/22/2022 6:17 PM Note Text: Episode Visit Count: 4 Therapist That Will Accept/Oversee The Plan Of Care: Charlie Elkins Start of Care Date: 03/25/22 Onset Date: 06/26/22 Plan of Care Certification Date: 03/25/22 Next Certification Due Date: 04/29/22 Patient Identified by Name and Date of : Yes REHABILITATION AND SPORTS THERAPY PHYSICAL THERAPY TREATMENT NOTE ASSESSMENT: Jon Salguero tolerated the session with decreased symptoms. He demonstrated improvements in less pain in the R toe and leg post manual traction of the lumbar spine. The patient will continue to benefit from ongoing skilled physical therapy to progress toward set goals and for reassessment by supervising therapist. PLAN FOR NEXT VISIT: POC update SUBJECTIVE: Patient Reason for Visit: Pt states he feels like we are makign some progress. The R toe hurts still. Pain: Pain Pain Level: 4 Pain Location: Leg - Right Post Treatment Pain Post Treatment Pain Level: ( leg is fine. Toe pain went from 6 to a 3 ) Post Treatment Pain Location: Leg - Right OBJECTIVE MEASURES WITH LEVEL OF FUNCTION: Walking with less pain post manual traction of the lumbar spine Slight trunk flexion during ambulation TREATMENT: Therapeutic Exercise: 1: Seated forward lean with tilting to the L 2x 10 reps holding 3-5 sec each 2: Seated L lumbar rotation 2 x 10, 5 sec holds 3: PPT seated, x 10 Skilled Intervention: Patient was educated in proper exercise technique and purpose for exercises. Skilled judgment was provided in selection of appropriate interventions. Provided written instruction for home exercise program to facilitate proper performance and compliance. Manual Therapy: 1: Supine Lumbar manual traction with strap and stool sustained pull x 17 minutes Skilled Intervention: Manual skills to improve joint mobility, ROM, and decrease pain. Utilized anatomy knowledge of the therapist, and assessment of patient's response to intervention. Billing Therapeutic Exercise Treatment Minutes: 22 Manual TherapyTreatment Minutes: 17 Total Treatment Time Minutes (timed/untimed): 39 Charlie Elkins, PT [facility] 04-22-2022 History of Presen t illness Narrative Episode Visit Count: 4 Therapist That Will Accept/Oversee The Plan Of Care: Charlie Elkins Start of Care Date: 03/25/22 Onset Date: 06/26/22 Plan of Care Certification Date: 03/25/22 Next Certification Due Date: 04/29/22 Patient Identified by Name and Date of : Yes REHABILITATION AND SPORTS THERAPY PHYSICAL THERAPY TREATMENT NOTE ASSESSMENT: Jon Salguero tolerated the session with decreased symptoms. He demonstrated improvements in less pain in the R toe and leg post manual traction of the lumbar spine. The patient will continue to benefit from ongoing skilled physical therapy to progress toward set goals and for reassessment by supervising therapist. PLAN FOR NEXT VISIT: POC update SUBJECTIVE: Patient Reason for Visit: Pt states he feels like we are makign some progress. The R toe hurts still. Pain: Pain Pain Level: 4 Pain Location: Leg - Right Post Treatment Pain Post Treatment Pain Level: ( leg is fine. Toe pain went from 6 to a 3 ) Post Treatment Pain Location: Leg - Right OBJECTIVE MEASURES WITH LEVEL OF FUNCTION: Walking with less pain post manual traction of the lumbar spine Slight trunk flexion during ambulation TREATMENT: Therapeutic Exercise: 1: Seated forward lean with tilting to the L 2x 10 reps holding 3-5 sec each 2: Seated L lumbar rotation 2 x 10, 5 sec holds 3: PPT seated, x 10 Skilled Intervention: Patient was educated in proper exercise technique and purpose for exercises. Skilled judgment was provided in selection of appropriate interventions. Provided written instruction for home exercise program to facilitate proper performance and compliance. Manual Therapy: 1: Supine Lumbar manual traction with strap and stool sustained pull x 17 minutes Skilled Intervention: Manual skills to improve joint mobility, ROM, and decrease pain. Utilized anatomy knowledge of the therapist, and assessment of patient's response to intervention. Billing Therapeutic Exercise Treatment Minutes: 22 Manual TherapyTreatment Minutes: 17 Total Treatment Time Minutes (timed/untimed): 39 Charlie Elkins PT documented in this encounter [facility] 04-10-2022 Note HNO ID: [id number] Author: Charlie Elkins PT Service: ? Author Type: Physical Therapist Type: Progress Notes Filed: 04/10/2022 8:10 AM Note Text: Episode Visit Count: 3 Therapist That Will Accept/Oversee The Plan Of Care: Charlie Elkins Start of Care Date: 03/25/22 Onset Date: 06/26/22 Plan of Care Certification Date: 03/25/22 Next Certification Due Date: 04/29/22 Patient Identified by Name and Date of : Yes REHABILITATION AND SPORTS THERAPY PHYSICAL THERAPY TREATMENT NOTE ASSESSMENT: Jon Salguero tolerated the session with no issues. He demonstrated improvements in overall pain levels post manual therapy and lumbar traction. The patient will continue to benefit from ongoing skilled physical therapy to progress toward set goals. PLAN FOR NEXT VISIT: Lumbar traction SUBJECTIVE: Patient Reason for Visit: lAID ON THE r SIDE. tHIS HURT THE HIP AND TOE. Pain: Pain Pain Level: 6 Pain Location: Leg - Right Post Treatment Pain Post Treatment Pain Level: Better Post Treatment Pain Location: Leg - Right OBJECTIVE MEASURES WITH LEVEL OF FUNCTION: F lean takes the toe pain away TREATMENT: Therapeutic Exercise: 1: Seated forward lean with tilting to the L 3 x 10 reps holding 3-5 sec each 2: LTR (opening R lumbar facets) 2 x 10 reps 3: R glute max stretch x 10 Skilled Intervention: Patient was educated in proper exercise technique and purpose for exercises. Correct performance of therapeutic exercises was facilitated with verbal and visual cuing. Manual Therapy: 1: Supine Lumbar manual traction with strap and stool sustained pull x 15 minutes Skilled Intervention: Manual skills to improve joint mobility, ROM, and decrease pain. Utilized anatomy knowledge of the therapist, and assessment of patient's response to intervention. Billing Therapeutic Exercise Treatment Minutes: 25 Manual TherapyTreatment Minutes: 15 Total Treatment Time Minutes (timed/untimed): 40 Charlie Elkins PT [facility] 04-10-2022 History of Presen t illness Narrative Episode Visit Count: 3 Therapist That Will Accept/Oversee The Plan Of Care: Charlie Elkins Start of Care Date: 03/25/22 Onset Date: 06/26/22 Plan of Care Certification Date: 03/25/22 Next Certification Due Date: 04/29/22 Patient Identified by Name and Date of : Yes REHABILITATION AND SPORTS THERAPY PHYSICAL THERAPY TREATMENT NOTE ASSESSMENT: Jon Salguero tolerated the session with no issues. He demonstrated improvements in overall pain levels post manual therapy and lumbar traction. The patient will continue to benefit from ongoing skilled physical therapy to progress toward set goals. PLAN FOR NEXT VISIT: Lumbar traction SUBJECTIVE: Patient Reason for Visit: lAID ON THE r SIDE. tHIS HURT THE HIP AND TOE. Pain: Pain Pain Level: 6 Pain Location: Leg - Right Post Treatment Pain Post Treatment Pain Level: Better Post Treatment Pain Location: Leg - Right OBJECTIVE MEASURES WITH LEVEL OF FUNCTION: F lean takes the toe pain away TREATMENT: Therapeutic Exercise: 1: Seated forward lean with tilting to the L 3 x 10 reps holding 3-5 sec each 2: LTR (opening R lumbar facets) 2 x 10 reps 3: R glute max stretch x 10 Skilled Intervention: Patient was educated in proper exercise technique and purpose for exercises. Correct performance of therapeutic exercises was facilitated with verbal and visual cuing. Manual Therapy: 1: Supine Lumbar manual traction with strap and stool sustained pull x 15 minutes Skilled Intervention: Manual skills to improve joint mobility, ROM, and decrease pain. Utilized anatomy knowledge of the therapist, and assessment of patient's response to intervention. Billing Therapeutic Exercise Treatment Minutes: 25 Manual TherapyTreatment Minutes: 15 Total Treatment Time Minutes (timed/untimed): 40 Charlie Elkins PT documented in this encounter [facility] 04-01-2022 Note HNO ID: [id number] Author: Charlie Elkins PT Service: ? Author Type: Physical Therapist Type: Progress Notes Filed: 04/01/2022 6:29 PM Note Text: Episode Visit Count: 2 Therapist That Will Oversee The Plan Of Care: Charlie Elkins Start of Care Date: 03/25/22 Onset Date: 06/26/22 Plan of Care Certification Date: 03/25/22 Next Certification Due Date: 04/29/22 Patient Identified by Name and Date of : Yes REHABILITATION AND SPORTS THERAPY PHYSICAL THERAPY TREATMENT NOTE ASSESSMENT: Jon Salguero tolerated the session with decreased symptoms. He demonstrated good tolerance towards lumbar traction. The patient will continue to benefit from ongoing skilled physical therapy to progress toward set goals. PLAN FOR NEXT VISIT: Manual lumbar SUBJECTIVE: Patient Reason for Visit: Walking causes pain especially when on the concrete. Had special inserts which did notice and increase in pain. Pain: Pain Pain Level: 5 Pain Location: Leg - Right Post Treatment Pain Post Treatment Pain Level: 4 Post Treatment Pain Location: Leg - Right OBJECTIVE MEASURES WITH LEVEL OF FUNCTION: TREATMENT: Therapeutic Exercise: 1: Standing PPT on wall x 10 reps (Discussed how to properly perform a PPT) 2: Discussed LTR exercise for opening the R lumbar facet joints 3: Discussed HEP modificiation Skilled Intervention: Patient was educated in proper exercise technique and purpose for exercises. Skilled judgment was provided in selection of appropriate interventions. Manual Therapy: 1: Supine Lumbar manual traction with strap and stool sustained pull x 12 minutes Skilled Intervention: Manual skills to improve joint mobility, ROM, and decrease pain. Utilized anatomy knowledge of the therapist, and assessment of patient's response to intervention. Self-Alf Management: 1: Discussed use of gel insert as an orthotic by Dr. Bynum to reduce impact force when walking on concrete. Discussed how minimizing impact forces throughout the day can decrease LBP and nerve pain. Skilled Intervention: Skilled judgment in the selection of proper modification for activity of daily living/home management based on clinical presentation, deficits, and needs. Billing Therapeutic Exercise Treatment Minutes: 15 Manual TherapyTreatment Minutes: 12 Self-Care/Home Management Treatment Minutes: 12 Total Treatment Time Minutes (timed/untimed): 39 Charlie Elkins PT [facility] 03-25-2022 Note HNO ID: [id number] Author: Charlie Elkins PT Service: ? Author Type: Physical Therapist Type: Progress Notes Filed: 03/25/2022 9:23 AM Note Text: Episode Visit Count: 1 Therapist That Will Oversee The Plan Of Care: Charlie Elkins Start of Care Date: 03/25/22 Onset Date: 06/26/22 Plan of Care Certification Date: 03/25/22 Next Certification Due Date: 04/29/22 Patient Identified by Name and Date of : Yes REHABILITATION AND SPORTS THERAPY PHYSICAL THERAPY EVALUATION PLAN OF CARE: Assessment: Jon Salguero presents with chief complaint of RLE and LLE pain that interferes with walking;standing . He presents with impairments in ADL's, gait, independence in exercise, overall function, and range of motion. Prognosis for therapy is Good due to: current objective clinical presentation . Pt demonstrates an increase in radicular symptoms with lumbar extension. He will benefit from skilled therapy services to meet the goals established for this plan of care as noted below. Classification Low Back Pain Subgroup Classification: Spinal mobilization subgroup: recommended visits 6. Spinal Mobilization Subgroup Classification based on: ROM loss;endrange pain Goals for Episode of Care: created on 03/25/22 through 06/03/22 Pt will be able to walk for 30 min without increased pain Pt will demo improved RLE strength in 8 weeks or less Isabela in home exercise program. Pt will report improvement in pain by 50% in 8 weeks or less for improved QOL Patient Goals: Decrease symptoms Planned Interventions, Frequency, and Duration: Current Frequency: 1x/week Duration: 4 weeks Total Number of Visits Planned: 4 Planned Treatment Interventions: Therapeutic exercise (22049);Neuromuscular re-education (34802);Manual therapy (61122);Self-longterm management (87429);Patient/Family/Caregiver Education PLAN FOR NEXT VISIT: Assess reaction to HEP. Assess hip flexor flexibility. Possibly add TA strengthening. Patient demonstrates good understanding of plan of care and treatment. The above goals and plan of care were discussed and agreed upon by patient/family. SUBJECTIVE: Jon Salguero is a 66 year old male seen today for sitting on two rocks in the hips . Hurts from the hip to the big toe. If standing for two long the legs feel like they are in a vice. Mostly the R leg but when the Left legs hurts it is to the thigh not the foot. Pt will get cramps. Coughing and sneezing in bed can cause pain from the hip to heel. Hard to sleep through the night. Had injections a few months ago which did not help. 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 5 points is clinically meaningfully difference Percentiles provide an indication of how the patient's score ranks in relation to the general population. Higher percentile rankings indicate better function/quality of life. 50th percentile is the average of the general population and indicates half of respondents had a worse score. T-scores: mean of general population = 50. 5 points is clinically meaningfully difference Percentiles provide an indication of how the patient's score ranks in relation to the general population. Higher percentile rankings indicate better function/quality of life. 50th percentile is the average of the general population and indicates half of respondents had a worse score. OBJECTIVE MEASURES WITH LEVEL OF FUNCTION: Lumbar Spine AROM Lumbar Flexion: Minimal limitation Lumbar R Side-Bend: Minimal limitation Lumbar L Side-Bend: Moderate limitation LE AROM Tested?: Yes LE AROM R LE AROM: WNL L LE AROM: WNL LE Strength L LE Strength: Grossly 5/5 R Hip Flexion (L2): 4/5 R Knee Extension (L3): 4/5 R Knee Flexion: 4/5 R Ankle Dorsiflexion (L4): 4/5 Gait Gait Observation: Slow noah with avoiding movement at the lumbar spine Education: Education Learning Preferences: Demonstration;Explanation;Perfor lesli;Printed Materials Barriers: None Learning/educational needs: Home exercise program;Plan of Care Education Provided: Yes, see treatment interventions for education provided Education Provided To: Patient Education Mode/Type: Demonstration;Explanation/Discus rene;Literature/Printed Materials;Performance Response to Education/Teach Back: States/Identifies;Return Demonstration TREATMENT: PT Treatment Interventions: Therapeutic Exercise Evaluation Therapeutic Exercise: 1: Discussed anatomy of the lumbar spine using a model for better comprehension of the HEP and (more content not included)... [facility] 03-25-2022 History of Presen t illness Narrative Episode Visit Count: 1 Therapist That Will Oversee The Plan Of Care: Charlie Elkins Start of Care Date: 03/25/22 Onset Date: 06/26/22 Plan of Care Certification Date: 03/25/22 Next Certification Due Date: 04/29/22 Patient Identified by Name and Date of : Yes REHABILITATION AND SPORTS THERAPY PHYSICAL THERAPY EVALUATION PLAN OF CARE: Assessment: Jon Salguero presents with chief complaint of RLE and LLE pain that interferes with walking;standing . He presents with impairments in ADL's, gait, independence in exercise, overall function, and range of motion. Prognosis for therapy is Good due to: current objective clinical presentation . Pt demonstrates an increase in radicular symptoms with lumbar extension. He will benefit from skilled therapy services to meet the goals established for this plan of care as noted below. Classification Low Back Pain Subgroup Classification: Spinal mobilization subgroup: recommended visits 6. Spinal Mobilization Subgroup Classification based on: ROM loss;endrange pain Goals for Episode of Care: created on 03/25/22 through 06/03/22 Pt will be able to walk for 30 min without increased pain Pt will demo improved RLE strength in 8 weeks or less Isabela in home exercise program. Pt will report improvement in pain by 50% in 8 weeks or less for improved QOL Patient Goals: Decrease symptoms Planned Interventions, Frequency, and Duration: Current Frequency: 1x/week Duration: 4 weeks Total Number of Visits Planned: 4 Planned Treatment Interventions: Therapeutic exercise (35569);Neuromuscular re-education (75713);Manual therapy (04003);Self-longterm management (71516);Patient/Family/Caregiver Education PLAN FOR NEXT VISIT: Assess reaction to HEP. Assess hip flexor flexibility. Possibly add TA strengthening. Patient demonstrates good understanding of plan of care and treatment. The above goals and plan of care were discussed and agreed upon by patient/family. SUBJECTIVE: Jon Salguero is a 66 year old male seen today for sitting on two rocks in the hips . Hurts from the hip to the big toe. If standing for two long the legs feel like they are in a vice. Mostly the R leg but when the Left legs hurts it is to the thigh not the foot. Pt will get cramps. Coughing and sneezing in bed can cause pain from the hip to heel. Hard to sleep through the night. Had injections a few months ago which did not help. 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 5 points is clinically meaningfully difference Percentiles provide an indication of how the patient's score ranks in relation to the general population. Higher percentile rankings indicate better function/quality of life. 50th percentile is the average of the general population and indicates half of respondents had a worse score. T-scores: mean of general population = 50. 5 points is clinically meaningfully difference Percentiles provide an indication of how the patient's score ranks in relation to the general population. Higher percentile rankings indicate better function/quality of life. 50th percentile is the average of the general population and indicates half of respondents had a worse score. OBJECTIVE MEASURES WITH LEVEL OF FUNCTION: Lumbar Spine AROM Lumbar Flexion: Minimal limitation Lumbar R Side-Bend: Minimal limitation Lumbar L Side-Bend: Moderate limitation LE AROM Tested?: Yes LE AROM R LE AROM: WNL L LE AROM: WNL LE Strength L LE Strength: Grossly 5/5 R Hip Flexion (L2): 4/5 R Knee Extension (L3): 4/5 R Knee Flexion: 4/5 R Ankle Dorsiflexion (L4): 4/5 Gait Gait Observation: Slow noah with avoiding movement at the lumbar spine Education: Education Learning Preferences: Demonstration;Explanation;Perfor lesil;Printed Materials Barriers: None Learning/educational needs: Home exercise program;Plan of Care Education Provided: Yes, see treatment interventions for education provided Education Provided To: Patient Education Mode/Type: Demonstration;Explanation/Discus rene;Literature/Printed Materials;Performance Response to Education/Teach Back: States/Identifies;Return Demonstration TREATMENT: PT Treatment Interventions: Therapeutic Exercise Evaluation Therapeutic Exercise: 1: Discussed anatomy of the lumbar spine using a model for better comprehension of the HEP and purpose of it. Discussed therapy goals and probably causes for pain. Discussed keeping the core engaged but still being able to breath with standing and walking to see if this decreases pain further. 2: HEP handout provided 3: SKTC x 8 each leg holding 5-10 sec each Skilled Intervention: Patient was educated in proper exercise technique and purpose for exercises. Skilled judgment was provided in selection of appropriate interventions. Provided written instruction for home exercise program to facilitate proper performance and compliance. Correct performance of therapeutic exercises was facilitated with verbal and visual cuing. Billing * Evaluation Low Complexity: 1 Unit Therapeutic Exercise Treatment Minutes: 24 Total Treatment Time Minutes (timed/untimed): 45 Charlie Elkins PT documented in this encounter [facility] 03-15-2022 Note HNO ID: [id number] Author: RT Eros(Matt) Service: ? Author Type: Sales Applications Engineer Type: Progress Notes Filed: 03/15/2022 8:55 AM Note Text: Radiology Service Progress Note PATIENT NAME: Jon Salguero DATE OF SERVICE: March 15, 2022 TIME: 8:54 AM PATIENT IDENTITY VERIFICATION COMPLETED USING TWO (2) IDENTIFIERS: Name and Date of confirmed by patient verbally. FALL SCREENING: Has the patient had 2 falls in the last year or 1 fall with injury or currently using an Ambulatory Assistive Device (Walker, Cane, Wheelchair, Crutches, etc.)? No PATIENT GENDER DATA: Male PATIENT RELEVANT IMPLANT DATA REVIEWED: Yes RADIOLOGY DEPARTMENT: General X-ray: Exam(s) Completed: Pelvis X-Ray: Pelvis with Hip Bilateral PERIPHERAL IV DATA: Not applicable SIGNED BY: RT Eros(Matt) March 15, 2022 8:54 AM [facility] 03-14-2022 Miscellaneous Notes Referral for PT has been submitted via the [facility] Internal Referral request form on the [facility] Appointment Portal. Confirmation # [id number] Noted patient preference of [facility] on referral. Autumn Burr MA documented in this encounter [facility] 03-13-2022 Note HNO ID: [id number] Author: Sushant Marie MD, PhD Service: ? Author Type: Physician Type: Progress Notes Filed: 03/13/2022 5:02 PM Note Text: NEUROSURGERY CONSULT NOTE Sushant Marie MD, PhD Date of visit: March 13, 2022 Patient Name: Mr.Alan Matthew Salguero Date of : 1955 Current Age: [age] year old Sex: male MRN/E# [id number] Chief Complaint: No chief complaint on file. HISTORY OF PRESENT ILLNESS : The patient is a 66 year old, right handed male with a past medical history of GERD and HTN who is referred by Dr. Waggoner for neurosurgical evaluation. He has a history of chronic back pain over the last 15 years. He noted since June his pain has worsened. In the past he has had left sided lower extremity discomfort. He notes right gluteal pain that radiated into his thigh and calf in more recent months. He reported the pain was worse with activity. Today he states 15 years ago he was shoveling and felt a sharp shooting pain that led him to the ED. He notes since June his symptoms have worsened. He notes he is not experiencing actual low back pain, but notes his pain is located in his bilateral PSIS regions. He states the pain is worse on the right than the left. He reports the pain radiates down his left gluteal aspect posteriorly down his thigh stopping at the knee. He denies any numbness or tingling. He reports pain radiating into his right gluteal aspect with pain down his posterior thigh stopping at the ankle. He denies any numbness or tingling. He denies any bowel or bladder dysfunction. He reports his pain is worse with walking, activity and prolonged standing. He reports muscle cramps at times to his bilateral lower extremities. He reports his pain is constant in nature. He denies any falls. He reports bilateral hip pain with his flexion and extension. Jon reports that his back pain is 6/10 in severity most days. It is not really in his back it is more right gluteal. He finds that this pain is worse with activity and sometimes he is able to sit in a way that makes this discomfort less serious for him. He is reporting radicular type electric shock type pain that goes all the way to his foot in particular the lateral aspect of his foot. He says that this is quite severe discomfort when it occurs but it is only happening intermittently about 3 times a day. He does have an ache in this distribution at all times that he reports is being about 3 out of 10 in severity. Jon does report some mild sensory dysfunction worse in his right foot. He is not certain that he is having weakness. He does feel that he hobbles a bit when he is walking but he suspects this is probably related to his other lower extremity orthopedic issues. Herminia does not report symptoms that would be consistent with claudication. So far Mr. Salguero has tried a single attempt of bilateral L4 5 injections. These did not help. He has not tried physical therapy. He has tried gabapentin. 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 He presents for imaging review, evaluation and plan of care. PREVIOUS CONSERVATIVE TREATMENTS: Ultram Oral steroids Home exercises Chiropractor Gabapentin Naproxen Baclofen TESI L4-5 11/19 EMG PREVIOUS SURGERY: Prior left shoulder surgery. He also reports a previous procedure involving his right knee. PAIN EVALUATION No data found in the last 1 encounters. Past medical history: Macho reports having hiatal hernia with reflux. He is also troubled by hypertension and dyslipidemia. Allergies: Jon has no reported allergies. Social history: Herminia denies any history of smoking or drinking. 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 Jon takes fish oil on an ongoing basis. No current outpatient medications on file. No current facility-administered medications for this visit. REVIEW OF SYSTEMS Review of Systems Constitutional: Negative for diaphoresis, fatigue and fever. HENT: Negative for congestion, sinus pressure and sore throat. Eyes: Negative for discharge and itching. Respiratory: Negative for cough, chest tightness and shortness of breath. Cardiovascular: Negative for chest pain, palpitations and leg swelling. Gastrointestinal: Negative for constipation, diarrhea, nausea and vomiting. Endocrine: Negative for cold intolerance and heat intolerance. Genitourinary: Negative for difficulty urinating, frequency and urgency. Musculoskeletal: Positive for back pain and gait problem. Negative for neck pain and neck stiffness. Skin: Negative for rash and wound. Allergic/Immunologic: Negative for environmental allergies and food allergies. Neurological: Positive for weakness. Negative for dizziness, light-headedness, numbness and headaches. Hematological: Bruises/bleeds easily. Psychiatric/Behavioral: Negative for elizabeth (more content not included)... [facility] 03-13-2022 Instructions Sushant Marie MD, PhD - 03/13/2022 5:01 PM EDT Images from the original note were not included. Herniated Disc What is a herniated disc? The spine, or backbone, is made up of a series of individual bones called vertebrae that are stacked to form the spinal column. Between the vertebrae are flat, round cushioning pads called intervertebral discs, which act as shock absorbers. Each disc has a soft, gel-like center -- called the nucleus pulposus -- surrounded by a tough, fibrous outer layer called the annulus. A herniated disc -- also called a slipped disc or ruptured disc -- occurs when pressure from the vertebrae above and below force some or all of the nucleus pulposus through a weakened or torn part of the annulus. The herniated nucleus pulposus can press on the nerves near the disc, resulting in pain. Herniated discs most frequently occur in the lower part of the spine; however they can also occur in the cervical and thoracic spine. A herniated disc is one of the most common causes of neck, back and/or leg pain (sciatica) and neckache. What are the symptoms of a herniated disc? Herniated discs often produce no symptoms at all. Symptoms of a herniated disc in the low back include: Pain that radiates to the buttocks, legs, and feet -- called sciatica (Back pain might or might not be present, as well.) Tingling or numbness in the legs or feet Muscle weakness Symptoms of a herniated disc in the neck include: Pain near or over the shoulder blade Pain that radiates to the shoulder, arm, and -- sometimes -- the hand and fingers Neck pain, especially in the back and on the sides of the neck (The pain might increase when bending or turning the neck.) Spasm of the neck muscles Symptoms of a herniated disc in the mid-back tend to be vague. There might be pain in the upper back, lower back, abdomen, or legs, as well as weakness or numbness in one or both legs. What causes a herniated disc? A herniation occurs when the outer part of the disc, the annulus, becomes weak and tears. Several factors can contribute to disc-weakening, including Aging and degeneration Excessive weight A sudden strain from improper lifting or from twisting violently How common are herniated discs? Herniated discs are very common. They occur more often in people aged 35 to 55 years. They are more common in men than in women. How is a herniated disc diagnosed? Your health care provider will begin an evaluation with a complete physical examination and medical history, including a review of your symptoms. He or she might perform a neurological exam to test your muscle reflexes, sensation, and muscle strength. The health care provider might use certain other diagnostic tests to confirm the diagnosis and to better evaluate the site and extent of the herniation. These tests might include: X-ray -- X-rays use small doses of radiation to produce images of the body. An X-ray of the spine might be done to rule out other causes of the back or neck pain. MRI or CT scan -- Magnetic resonance imaging (MRI) and computed tomography (CT) scans can show narrowing of the spinal canal caused by a herniation. Myelogram -- This is an injection of dye into the spinal canal followed by a CT scan. A myelogram can help pinpoint the size and location of the herniation. EMG -- An electromyelogram (EMG) involves placing small needles into various muscles and measuring electrical activity. The muscle's response, which indicates the degree of nerve activity, is measured. An EMG can help determine which nerve root or roots are being affected by the disk herniation. How is a herniated disc treated? Most herniated discs resolve on their own or with conservative treatment, which includes rest, anti-inflammatories, and physical therapy. Some people find that ice packs or moist heat applied to the affected area provides some symptomatic relief of the pain and muscle spasms in the back. In cases that do not improve with conservative treatment, spinal injections or surgery might be needed. Medicine -- Nonsteroidal anti-inflammatory drugs (NSAIDs) help to relieve pain, inflammation, and stiffness, allowing for increased mobility and exercise. Common [id number] NSAIDs include aspirin, ibuprofen (Motrin , Advil and naproxen (Naprosyn , Aleve ). You may take medicines with food to avoid stomach irritation. Muscle relaxants and various analgesics might be prescribed to relieve the discomfort associated with severe pain or muscle spasms in the initial treatment periods. Physical therapy -- The goal of physical therapy is to improve core strength, flexibility and endurance to enable you to engage in your normal activities. The exercises prescribed by your physical therapist can also help relieve pressure on your nerves, reducing the symptoms of pain and weakness. The exercise program often includes stretching exercises to improve flexibility of tight muscles and aerobic exercise -- such as walking or using a stationary bike -- to build endurance and improve circulation. Other exercises might help to strengthen the muscles of your back, abdomen, and legs. Spinal injections -- An injection of a cortisone-like medicine into the lower back might help reduce swelling and inflammation of the nerve roots, allowing for increased mobility. These injections are referred to as epidurals or nerve blocks. Surgery -- Surgery might be needed for people who do not respond to conservative treatment, whose symptoms get progressively worse, or who experience progressive neurologic decline. Rarely, a large disc herniation might injure nerves to the bladder or bowel, which requires emergency surgery. The most common surgical options include microdiscectomy, laminectomy, or foraminotomy. Microdiscectomy -- Microdiscectomy is a procedure used to remove fragments of a herniated disc, often using an operating microscope. Laminectomy -- The part of the bone that curves around and covers the spinal cord (lamina) and the tissue that is causing pressure on the nerve or spinal cord are removed. This procedure is performed under general anesthesia. The hospital stay is one to two days. Complete recovery takes about six weeks. What complications are associated with a herniated disc? Chronic (ongoing) back or leg pain and loss of control or sensation in the legs or feet are some complications of an untreated disc herniation. What is the outlook for people with herniated discs? Most back and leg pain will get better gradually -- usually within six weeks -- by taking simple measures. In fact, most people with herniated discs respond to conservative treatment within six weeks and are able to return to their normal activities. Some will continue to have back pain even after treatment. Can anything be done to prevent a herniated disc? It is not always possible to prevent a herniated disc, but there are steps you can take to reduce your risk: Use proper lifting techniques. Do not bend at the waist. Bend your knees while keeping your back straight and use your strong leg muscles to help you support the load. Maintain a healthy weight. Excess weight puts pressure on the lower back. Practice good posture when walking, sitting, standing, and sleeping. For example, stand up straight with your shoulders back, abdomen in, and the small of your back flat. Sit with your feet flat on the floor or elevated. Sleep on a firm mattress, and sleep on your side, not your stomach. Stretch often when sitting for long periods of time. Do not wear high-heeled shoes. Exercise regularly to keep the muscles of your back, legs, and stomach strong. Engage in regular aerobic exercise. Try to balance flexibility with strengthening in a regular exercise program. Stop smoking Eat healthy, well-balanced meals References [employer]. Herniated Cervical Disc Accessed 03/13/2014. [employer]. Herniated Lumbar Disc Accessed 03/13/2014. [employer]. Herniated Disk Accessed 03/13/2014. Kerwin Lanza. Chapter 276. Neck and Back Pain. In: Rodriguez ROCHA, Julio Cesar J, Lani O, Karina DM, Gio RK, Sohail CHENG, T. eds. [employer] Emergency Medicine: A Comprehensive Study Guide, 7e. [place], [place]: [facility]; 2011. [email or web address] Accessed 03/13/2014. Copyright 7983-7010 [facility]. All rights reserved This information is provided by the [facility] and is not intended to replace the medical advice of your doctor or health care provider. Please consult your health care provider for advice about a specific medical condition. For additional health information, please contact the Center for Consumer Health Information at the [facility] or toll-free extension [phone]. If you prefer, you may visit [email or web address] or [email or web address]. This document was last reviewed on: 2014 index#[id number] documented in this encounter [facility] 03-13-2022 History of Presen t illness Narrative NEUROSURGERY CONSULT NOTE Sushant Marie MD, PhD Date of visit: March 13, 2022 Patient Name: Mr.Alan Matthew Salguero Date of : 1955 Current Age: [age] year old Sex: male MRN/E# [id number] Chief Complaint: No chief complaint on file. HISTORY OF PRESENT ILLNESS : The patient is a 66 year old, right handed male with a past medical history of GERD and HTN who is referred by Dr. Waggoner for neurosurgical evaluation. He has a history of chronic back pain over the last 15 years. He noted since June his pain has worsened. In the past he has had left sided lower extremity discomfort. He notes right gluteal pain that radiated into his thigh and calf in more recent months. He reported the pain was worse with activity. Today he states 15 years ago he was shoveling and felt a sharp shooting pain that led him to the ED. He notes since June his symptoms have worsened. He notes he is not experiencing actual low back pain, but notes his pain is located in his bilateral PSIS regions. He states the pain is worse on the right than the left. He reports the pain radiates down his left gluteal aspect posteriorly down his thigh stopping at the knee. He denies any numbness or tingling. He reports pain radiating into his right gluteal aspect with pain down his posterior thigh stopping at the ankle. He denies any numbness or tingling. He denies any bowel or bladder dysfunction. He reports his pain is worse with walking, activity and prolonged standing. He reports muscle cramps at times to his bilateral lower extremities. He reports his pain is constant in nature. He denies any falls. He reports bilateral hip pain with his flexion and extension. Jon reports that his back pain is 6/10 in severity most days. It is not really in his back it is more right gluteal. He finds that this pain is worse with activity and sometimes he is able to sit in a way that makes this discomfort less serious for him. He is reporting radicular type electric shock type pain that goes all the way to his foot in particular the lateral aspect of his foot. He says that this is quite severe discomfort when it occurs but it is only happening intermittently about 3 times a day. He does have an ache in this distribution at all times that he reports is being about 3 out of 10 in severity. Jon does report some mild sensory dysfunction worse in his right foot. He is not certain that he is having weakness. He does feel that he hobbles a bit when he is walking but he suspects this is probably related to his other lower extremity orthopedic issues. Herminia does not report symptoms that would be consistent with claudication. So far Mr. Salguero has tried a single attempt of bilateral L4 5 injections. These did not help. He has not tried physical therapy. He has tried gabapentin. 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 He presents for imaging review, evaluation and plan of care. PREVIOUS CONSERVATIVE TREATMENTS: Ultram Oral steroids Home exercises Chiropractor Gabapentin Naproxen Baclofen TESI L4-5 11/19 EMG PREVIOUS SURGERY: Prior left shoulder surgery. He also reports a previous procedure involving his right knee. PAIN EVALUATION No data found in the last 1 encounters. Past medical history: Macho reports having hiatal hernia with reflux. He is also troubled by hypertension and dyslipidemia. Allergies: Jon has no reported allergies. Social history: Herminia denies any history of smoking or drinking. 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 Jon takes fish oil on an ongoing basis. No current outpatient medications on file. No current facility-administered medications for this visit. REVIEW OF SYSTEMS Review of Systems Constitutional: Negative for diaphoresis, fatigue and fever. HENT: Negative for congestion, sinus pressure and sore throat. Eyes: Negative for discharge and itching. Respiratory: Negative for cough, chest tightness and shortness of breath. Cardiovascular: Negative for chest pain, palpitations and leg swelling. Gastrointestinal: Negative for constipation, diarrhea, nausea and vomiting. Endocrine: Negative for cold intolerance and heat intolerance. Genitourinary: Negative for difficulty urinating, frequency and urgency. Musculoskeletal: Positive for back pain and gait problem. Negative for neck pain and neck stiffness. Skin: Negative for rash and wound. Allergic/Immunologic: Negative for environmental allergies and food allergies. Neurological: Positive for weakness. Negative for dizziness, light-headedness, numbness and headaches. Hematological: Bruises/bleeds easily. Psychiatric/Behavioral: Negative for agitation. The patient is not nervous/anxious. OBJECTIVE: There were no vitals taken for this visit. PHYSICAL EXAM: General Examination BP 122/66 (BP Site: Left Arm, BP Position: Sitting, BP Cuff Size: Regular Adult) Pulse 75 Ht 5' 8 (1.727 m) Wt 217 lb 2.5 oz (98.5 kg) SpO2 97% BMI 33.02 kg/m He is accompanied by his spouse. General: Awake, alert, interactive, no acute distress, good nutritional status, normal development, Neurological Exam Mental Status Alert, fully oriented, attentive, with normal cognition, memory, speech and affect. Motor Examination and Coordination Motor examination demonstrated subtle weakness of his right toe dorsiflexor as compared to the left. Otherwise all lower extremity myotomes demonstrated normal function bilaterally. Reflexes Deep tendon reflexes graded by [facility] Deep Tendon Reflexes Right Left Patellar 1+ 2+ Achilles 0 0 Medial hamstring reflex 0 0 Pathological reflexes are absent. Other Myotatic Reflexes Right Left Ankle clonus absent absent There were no upper motor neuron signs Sensation Sensation to light touch was subtly impaired in the right S1 and L5 dermatomes. Patient reported only small differences compared to sensation in his left foot. Gait Arises easily. Mr. Salguero did have some difficulty with tandem gait. He had a negative Romberg. Jon did not have any spinal or paraspinal lumbar tenderness. It is clear that his discomfort arises in his buttock region and not his lower back. Jon had right sided discomfort with passive hip joint range of motion and with JOHN testing. This was not observed when testing his left side. This raises suspicion for right-sided hip joint pathology. Herminia reported that this was his usual type of pain. Jon did exhibit mild radicular type pain shooting to his right thigh on right-sided femoral stretch testing but not on his left. He had negative straight leg raising on both sides. Data Review IMAGING STUDIES: Jon rought outside imaging on a disc today. Jon had recently performed lumbar flexion-extension films which do not reveal any malalignment nor instability. I also reviewed Jon 's recently performed lumbar MRI scan. There are noteworthy degenerative changes apparent. Herminia has a disc bulge on the left-sided L1 to. He has a broad-based disc bulge at L4-5 more prominent towards the right. He also has a disc bulge at L5-S1 more prominent towards the left. He has minimal central canal stenosis in his lumbar spine. ASSESSMENT: Jon has been offered a lumbar spinal fusion. He is here today for a second opinion. On my examination of him a number of things are evident. First is that he does not really have low back pain. This seemed pain seems to be in his gluteal region. As his pain was reproduced with test that provoke the right hip joint. I have to wonder if he has hip osteoarthritis. I do think that Jon has some right-sided L5 radiculopathy. This does seem concordant with some right-sided foraminal stenosis on his MRI at L4-5. I am discouraged by the fact that this was not detected on his EMG nerve conduction studies. Moreover his lack of response to the recent attempted a nerve root block is a probable poor prognosticator for surgical management. PLAN: Today I am going to obtain some hip x-rays for Macho. I would encourage the primary care provider to assess and treat the possible issue of right hip joint arthritis. Although I do think it is mild with predominant pain symptomatic symptomatology I do think that Jon has right-sided radiculopathy. Which involves his L5 nerve root. I do think it may be helpful for Jon to trial some physical therapy. I would like to reassess Macho in 6 weeks time to see how his symptoms are and how he has responded to physical therapy. I am hopeful that by that time he will also have had a more detailed assessment of his hip. I do think it is possible that Jon in fact has 2 distinct problems that are currently causing his symptoms. 1. Osteoarthritis of spine with radiculopathy, lumbar region - ICD9: 721.3, ICD10: M47.26 (primary diagnosis) - CONSULT TO PHYSICAL THERAPY 2. Pain in right hip - ICD9: 719.45, ICD10: M25.551 - XR HIP BILATERAL 5V PEL/AP/LAT EACH HIP Attestation: The following portions of the patient's history were reviewed, confirmed, and updated as necessary: allergies, current medications, past family history, past medical history, past social history, past surgical history, problem list, HPI, and ROS obtained by others. Some elements may be copied from a previous office note and have been reviewed/updated where appropriate. All portions reflect current medical decision making from today. The clinical and radiographic findings as well as the risks, benefits and alternatives of treatment have been reviewed in detail with the patient. The patient was advised to call the office if symptoms worsen or new symptoms develop. The patient expressed understanding and is in agreement with plan. Sushant Marie MD, PhD This note was partially generated using [employer] voice recognition system, and there may be some incorrect words, spellings, and punctuation that were not noted in checking the note before saving. documented in this encounter [facility] Evaluation + Plan note Future Appointments Appointment Date:02/18/2022 09:15:00 AM Scheduled Provider:ROM JETT MD Location:[facility] Appointment Type:PM [facility] Diagnosis Osteoarthritis of spine with radiculopathy, lumbar region- Primary [facility] Diagnosis Osteoarthritis of spine with radiculopathy, lumbar region- Primary [facility] Diagnosis Osteoarthritis of spine with radiculopathy, lumbar region- [facility] Oste[facility] of spine with radiculopathy, lumbar region- [facility] Diagnosis Primary osteoarthritis of right hip- Primary Primary localized osteoarthrosis, pelvic region and thigh Piriformis muscle pain Mylagia and myositis, unspecified [facility] Osteoarthritis of spine with radiculopathy, lumbar region- Primary 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, 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 [facility] Diagnosis Osteoarthritis of spine with radiculopathy, lumbar region- Primary 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, 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 [facility] Pain in right hip- Primary Pain in joint, pelvic region and thigh [facility] Pain of right hip joint- Primary Pain of right hip joint [facility] Diagnosis Spinal stenosis of lumbar region, unspecified whether neurogenic claudication present Osteoarthritis of spine with radiculopathy, lumbar region [facility] Narrative No data available for this section [facility] Discharge instructions No data available for this section [facility] Progress note No data available for this section [facility] Reason for referral (narrative)* Diagnostic Procedure Only (Routine) - Pending Review Specialty Diagnoses / Procedures Referred By Contac t Referred To Contact XR IMAGING Diagnoses Pain in right hip Procedures XR HIP BILATERAL 5V PEL/AP/LAT EACH HIP RADEX HIPS BILATERAL WITH PELVIS MINIMUM 5 VIEWS Sushant Marie MD, PhD [address] [place] [address] Xr Imaging Referral ID Status Reason Start Date Expiration Date Visits Requested Visits Authorized [id number] Pending Review Auto-Generat ed Referral 03/13/2022 04/12/2023 1 1 * Physical Therapy (Routine) - Pending Review Specialty Diagnoses / Procedures Referred By Contac t Referred To Contact [facility] Diagnoses Osteoarthritis of spine with radiculopathy, lumbar region Procedures CONSULT TO PHYSICAL THERAPY PHYSICAL THERAPY EVALUATION HIGH COMPLEX 45 MINS Sushant Marie MD, PhD [address] [place] [address] [facility] [address] [place] [address] Referral ID Status Reason Start Date Expiration Date Visits Requested Visits Authorized [id number] Pending Review Auto-Generat ed Referral 03/13/2022 03/13/2023 1 1 [facility] Summary Purpose Family History No Family History Records FoundNo Family History Records FoundNo Family History Records FoundNo Family History Records Found Advance Directives No Advanced Directives Records FoundNo Advanced Directives Records FoundNo Advanced Directives Records FoundNo Advanced Directives Records Found Reason for Referral Specialty Diagnoses / Procedures Referred By Contac t Referred To Contact MR IMAGING Diagnoses Spinal stenosis of lumbar region, unspecified whether neurogenic claudication present Osteoarthritis of spine with radiculopathy, lumbar region Procedures MRI LUMBAR SPINE WO IVCON MRI SPINAL CANAL LUMBAR W/O CONTRAST MATERIAL Sushant Marie MD, PhD [address] [place] [address] [place] [address] Referral ID Status Reason Start Date Expiration Date V isits Requested Visits Authorized [id number] Closed Auto-Generate d Referral 08/04/2022 09/03/2023 1 1 Specialty Diagnoses / Procedures Referred By Contac t Referred To Contact Pain Management Diagnoses Pain in right hip Procedures CONSULT TO PAIN MGT Sushant Marie MD, PhD [address] [place] [address] Referral ID Status Reason Start Date Expiration Date Visits Requested Visits Authorized [id number] Ref Not Required PCP Requested Referral 09/22/2022 09/22/2023 1 1 Additional Source Comments Care Team (unrecognized sect ion and content) Care Team Personnel Name: YOLI WOLFE MD Member Role: Primary Care Physician Address: Address: [facility] [place] [address]- Care Team Related Persons Name: YASEMIN SALGUERO Address: [address] [place] [address] [place] Source Comments (unrecognize d section and content) In the event this informatio n is protected by the Federal Confidentiality of Alcohol and Drug Abuse Patient Records regulations: The Federal rules restrict any use of the information to criminally investigate or prosecute any alcohol or drug abuse patient.[facility] the event this information is protected by the Federal Confidentiality of Alcohol and Drug Abuse Patient Records regulations: The Federal rules restrict any use of the information to criminally investigate or prosecute any alcohol or drug abuse patient.[facility] the event this information is protected by the Federal Confidentiality of Alcohol and Drug Abuse Patient Records regulations: The Federal rules restrict any use of the information to criminally investigate or prosecute any alcohol or drug abuse patient.[facility] the event this information is protected by the Federal Confidentiality of Alcohol and Drug Abuse Patient Records regulations: The Federal rules restrict any use of the information to criminally investigate or prosecute any alcohol or drug abuse patient.[facility] the event this information is protected by the Federal Confidentiality of Alcohol and Drug Abuse Patient Records regulations: The Federal rules restrict any use of the information to criminally investigate or prosecute any alcohol or drug abuse patient.[facility] the event this information is protected by the Federal Confidentiality of Alcohol and Drug Abuse Patient Records regulations: The Federal rules restrict any use of the information to criminally investigate or prosecute any alcohol or drug abuse patient.[facility] the event this information is protected by the Federal Confidentiality of Alcohol and Drug Abuse Patient Records regulations: The Federal rules restrict any use of the information to criminally investigate or prosecute any alcohol or drug abuse patient.[facility] the event this information is protected by the Federal Confidentiality of Alcohol and Drug Abuse Patient Records regulations: The Federal rules restrict any use of the information to criminally investigate or prosecute any alcohol or drug abuse patient.[facility] the event this information is protected by the Federal Confidentiality of Alcohol and Drug Abuse Patient Records regulations: The Federal rules restrict any use of the information to criminally investigate or prosecute any alcohol or drug abuse patient.[facility] the event this information is protected by the Federal Confidentiality of Alcohol and Drug Abuse Patient Records regulations: The Federal rules restrict any use of the information to criminally investigate or prosecute any alcohol or drug abuse patient.[facility] the event this information is protected by the Federal Confidentiality of Alcohol and Drug Abuse Patient Records regulations: The Federal rules restrict any use of the information to criminally investigate or prosecute any alcohol or drug abuse patient.[facility] the event this information is protected by the Federal Confidentiality of Alcohol and Drug Abuse Patient Records regulations: The Federal rules restrict any use of the information to criminally investigate or prosecute any alcohol or drug abuse patient.[facility]igh[facility] the event this information is protected by the Federal Confidentiality of Alcohol and Drug Abuse Patient Records regulations: The Federal rules restrict any use of the information to criminally investigate or prosecute any alcohol or drug abuse patient.[facility]igh[facility] the event this information is protected by the Federal Confidentiality of Alcohol and Drug Abuse Patient Records regulations: The Federal rules restrict any use of the information to criminally investigate or prosecute any alcohol or drug abuse patient.[facility] Reason for Visit (unrecogniz ed section and content) Specialty Diagnoses / Procedures Referred By Antoinette t Referred To Contact [facility] Diagnoses Osteoarthritis of spine with radiculopathy, lumbar region Procedures CONSULT TO PHYSICAL THERAPY PHYSICAL THERAPY EVALUATION HIGH COMPLEX 45 MINS Sushant Marie MD, PhD [address] [facility] [place] [address] [facility] [address] [place] [id number] Referral ID Status Reason Start Date Expiration Date Visits Requested Visits Authorized [id number] Authorized Auto-Generat ed Referral 07/27/2021 07/26/2022 99 99 Reason Comments New Patient Evaluation Specialty Diagnoses / Procedures Referred By Contac t Referred To Contact [facility] Department Diagnoses Sciatic nerve per Dr. Waggoner, recent MRI done- patient will bring disk Procedures NEW PATIENT Self, [facility] Dept Referral ID Status Reason Start Date Expiration Date V isits Requested Visits Authorized [id number] Closed Patient Cleared - Qualified 100% FAS 03/07/2022 06/05/2022 99 99 Reason Comments Internal Referrals/resources PT Reason Comments PT Eval Reason Comments External Referrals/resources [facility] - PM an d Ortho Internal Referrals/resources [facility] - ortho Reason Comments New Specialty Diagnoses / Procedures Referred By Contac t Referred To Contact Orthopedics Diagnoses Pain in right hip Procedures CONSULT TO ORTHOPAEDICS OFFICE/OUTPATIENT NEW HIGH MDM 60-74 MINUTES Sushant Marie MD, PhD [address] [facility] [place] [address] Referral ID Status Reason Start Date Expiration Date Visits Requested Visits Authorized [id number] Pending Review PCP Requested Referral 08/04/2022 08/04/2023 1 1 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 [address] [place] [address] Referral ID Status Reason Start Date Expiration Date V isits Requested Visits Authorized [id number] Closed Auto-Generate d Referral 08/04/2022 09/03/2023 1 1 (unrecognized sect ion and content) No Status Records FoundNo Status Records FoundNo Status Records FoundNo Status Records Found INFORMATION SOURCE (unrecogn ized section and content) DATE CREATED AUTHOR AUTHOR'S ORGANIZ ATION 08/23/2022 [facility] DATE CREATED AUTHOR AUTHOR'S ORGANIZ ATION 10/08/2022 [facility] DATE CREATED AUTHOR AUTHOR'S ORGANIZ ATION 11/11/2022 [facility] FOR RECORDS PERTAINING TO PATIENTS WHO ARE OR HAVE BEEN ENROLLED IN A CHEMICAL DEPENDENCY/SUBSTANCEABUSE PROGRAM, SOME INFORMATION MAY BE OMITTED. This clinical summary was aggregated from multiple sources. Caution should be exercised in using it in the provision of clinical care. This summary normalizes information from multiple sources, and as a consequence, information in this document may materially change the coding, format and clinical context of patient data. In addition, data may be omitted in some cases. CLINICAL DECISIONS SHOULD BE BASED ON THE PRIMARY CLINICAL RECORDS. [employer] provides no warranty or guarantee of the accuracy or completeness of information in this document.
[2023-08-14 11:09] LABS: AST(SGOT) 25 U/L (15-37); Alanine Aminotransfer ALT/SGPT 63 U/L (16-61); Albumin, Serum 3.5 g/dL (3.2-5.0); Alkaline Phosphatase 97 U/L (45-117); Anion Gap 7 (5-15); BUN 25 mg/dL (7-18); BUN/Creat Ratio 24.5 RATIO (10-20); Calcium,Total 9.1 mg/dL (8.5-10.1); Chloride 105 mmol/L (98-107); Creatinine, Serum 1.02 mg/dL (0.70-1.30); EST Glomerular Filtration Rate 77 mL/min (>60); Est Glom Filt Rate - Afr Amer 93 mL/min (>60); Globulin 3.5 g/dL (2.2-4.2); Glucose 127 mg/dL (74-106); Sodium Level 138 mmol/L (136-145)
[2023-08-14 11:19] VITALS: BP 132/73; PULSE 64; RESP 16; O2SAT 96
== END 2023-08-14 11:26 | disposition home or self-care (01) ==
PROVIDERS: Emergency Provider Emergency Medicine; PCP Family Medicine Geriatric Medicine; Visit Provider Emergency Medicine
DX: K62.5 Hemorrhage of anus and rectum (principal); K21.9 Gastro-esophageal reflux disease without esophagitis; I10 Essential (primary) hypertension; E78.5 Hyperlipidemia, unspecified; Z79.899 Other long term (current) drug therapy
CPT/HCPCS: 80053; 85025; 99283; A4216

== ENCOUNTER → 2024-02-09 | Outpatient (CLI) | payer OTHER, SELFPAY ==
[2024-02-09 17:18] LABS: Absolute Lymphocyte Count 1.66 X10^3/uL (0.83-4.51); Absolute Neutrophil Count 3.3 X10^3/uL (2.0-7.7); Basophil# 0.04 X10^3/uL; Basophil% 0.7 % (0-1); Eosinophil# 0.11 X10^3/uL; Eosinophils% 1.9 % (0-5); Hematocrit 39.5 % (40-54); Hemoglobin 12.7 g/dL (13.0-16.5); Lymphocyte # 1.66 X10^3/ul (0.83-4.51); Lymphocyte % 28.2 % (19-41); Mean Corp Hgb Conc 32.2 g/dL (32-36); Mean Corpuscular Hgb 26.7 pg (27.0-32.0); Mean Corpuscular Volume 83.2 fL (80-94); Mean Platelet Vol. 11.5 fl (6.2-12.0); Monocyte# 0.73 X10^3/uL; Monocyte% 12.4 % (0-10); NRBC Flagged by Analyzer 0 % (0-5); Neutrophil # 3.28 X10^3/uL (2.7-7.7); Neutrophil % 55.8 % (47-70); Platelet Count 265 K/mm3 (150-450); RBC Distribution Width CV 13.2 % (11.6-14.6); RBC Distribution Width SD 39.9 fl (35.1-43.9); Red Blood Count 4.75 M/mm3 (4.6-6.2); White Blood Count 5.9 K/mm3 (4.4-11.0)
[2024-02-09 17:56] LABS: Vitamin D,25 Hydroxy 32.1 ng/mL
[2024-02-09 18:14] LABS: ALB/GLOB Ratio 1.1 RATIO (0.9-2.4); AST(SGOT) 29 U/L (15-37); Alanine Aminotransfer ALT/SGPT 47 U/L (16-61); Albumin, Serum 3.7 g/dL (3.2-5.0); Alkaline Phosphatase 108 U/L (45-117); Anion Gap 8 (5-15); BUN 25 mg/dL (7-18); BUN/Creat Ratio 22.9 RATIO (10-20); Calcium,Total 9.2 mg/dL (8.5-10.1); Chloride 104 mmol/L (98-107); Creatinine, Serum 1.09 mg/dL (0.70-1.30); EST Glomerular Filtration Rate 71 mL/min (>60); Est Glom Filt Rate - Afr Amer 86 mL/min (>60); Globulin 3.5 g/dL (2.2-4.2); Glucose 104 mg/dL (74-106); Potassium 3.6 mmol/L (3.5-5.1); Protein, Total 7.2 g/dL (6.4-8.2); Sodium Level 134 mmol/L (136-145); Thyroid Stim Hormone (TSH) 3.08 uIU/mL (0.358-3.74)
== END | disposition home or self-care (01) ==
LOC: LAB 15:56
PROVIDERS: PCP Family Medicine Geriatric Medicine; Referring Provider Family Medicine Geriatric Medicine; Visit Provider Family Medicine Geriatric Medicine
DX: Z12.5 Encounter for screening for malignant neoplasm of prostate (principal); E55.9 Vitamin D deficiency, unspecified; I10 Essential (primary) hypertension
CPT/HCPCS: 36415; 80053; 82306; 84153; 84443; 85025; G0103

== ENCOUNTER → 2024-03-19 | Outpatient (CLI) | payer OTHER, SELFPAY ==
--- NOTE | 2024-03-19 10:30 | LES_PTH ---
PATIENT: JON KINSEY [facility] U#:[id number] AGE/SX: 68/M ROOM: RE03/19/[address]: Dr. Silvino Onofre MD : 1955 BED: DIS: 03/19/2024 SPEC #: [id number] RECD: 03/19/24 11:47 STATUS: MALU RELance #: [id number] ARTEMIO: 03/19/24 10:[address]: Silvino Onofre DEPT: SURGICAL PATHOLOGY RECD BY: Yunier Harden ENTERED: 03/21/24 09:14 SP TYPE: Lesion OTHR DR: Dr. Lester Prieto MD Tissues: Oral cavity, NOS Procedures: Special Stain Group I Surgery Specimen Level IV GMS Stain (control) HEADER OPERATION: Permanent pathology PRE-OP DIAGNOSIS: Left mouth lesion TISSUE SUBMITTED: Left mucosal lesion MICROSCOPIC DIAGNOSIS Left mucosal lesion, biopsy: A piece of squamous mucosa with acanthosis, extensive hyperkeratosis, focal minimal changes consistent with verrucous keratosis. Chronic inflammation. Negative for malignancy. See comment. Betty 03/22/2024 COMMENT Special stains for fungi are negative for organisms; matched controls are appropriate. Clinical correlation and appropriate follow up are necessary. Case has been reviewed in consultation with Dr. Garcia who concurs with the above diagnosis. IDC:[email or web address] MICROSCOPIC DESCRIPTION Slides are reviewed. GROSS DESCRIPTION Received in fixative is one container labeled with the patient's name and designated Biopsy of mouth lesion. The specimen consists of a piece of lyons mucosal tissue measuring 0.8 x 0.2 x 0.1cm. The entire specimen is inked and submitted in one cassette. 03/21/2024 TC:5 CPT:75470,14616
== END | disposition home or self-care (01) ==
LOC: LABSPEC 11:38
PROVIDERS: PCP Family Medicine Geriatric Medicine; Referring Provider Otolaryngology Otolaryngology/Facial Plastic Surgery; Visit Provider Otolaryngology Otolaryngology/Facial Plastic Surgery
DX: K13.79 Other lesions of oral mucosa (principal)
CPT/HCPCS: 88305; 88312

== ENCOUNTER → 2024-05-20 | Outpatient (CLI) | payer OTHER, SELFPAY ==
--- NOTE | 2024-05-20 12:08 | CT_ITS ---
STUDY: CT ABDOMEN AND PELVIS WITH CONTRAST REASON FOR EXAM: Male, 68 years old. ABD PAIN RADIATION DOSAGE (If Supplied By Facility): CTDIvol = ( 16.11 ) mGy, DLP = ( 1303.65 ) mGycm TECHNIQUE: Oral and amp; IV Gastrografin and amp; 100mL Isovue-300 was administered. Transaxial images were obtained from the dome of the diaphragm to the symphysis pubis. Multiplanar coronal and sagittal images were reformatted. The protocol utilizes one or more of the following dose reduction techniques: automated exposure control, adjustment of mA and/or kV according to patient size,and/or use of iterative reconstruction technique. COMPARISON: No relevant prior comparison study available FINDINGS: Prominent markings in the region of the lingula could represent infiltrate or scarring. No evidence of pleural effusions. The visualized portions of the heart are within normal limits. Hepatic steatosis. Normal gallbladder and extrahepatic biliary system. Normal spleen. Normal pancreas. Normal bilateral adrenal glands. Large hiatal hernia which could be paraesophageal. Normal small intestine. Diverticulosis of the sigmoid colon with mild thickening. Early diverticulitis cannot be entirely excluded. No evidence of free air or drainable abscess. The appendix is visualized and appears normal. There is diffuse atherosclerotic calcification of the abdominal aorta, without a demonstrated aneurysm. No retroperitoneal adenopathy. Normal right kidney. Normal left kidney. Normal urinary bladder. Prominent prostate. Normal abdominal wall. No demonstrated acute osseous changes. CT/Abdomen/Pelvis WITH Contrast IMPRESSION: Diverticulosis of the sigmoid colon with mild thickening of the colon could reflect early diverticulitis.. Large hiatal hernia which could be paraesophageal. Hepatic steatosis. Electronically Signed: Andrew Montaño MD at 15:05 EDT ,
--- NOTE | 2024-05-20 12:20 | RAD_ITS ---
INDICATION: WHEEZING EXAMINATION/TECHNIQUE: X-RAY - XR Chest 2 Views COMPARISON: Prior study dated: 02/12/2022 FINDINGS: LINES/DEVICES: None. LUNGS: Elevation of the medial aspect of the right hemidiaphragm. Small nodule in the left upper lobe likely due to granuloma no focal infiltrate. No evidence of pleural effusions MEDIASTINUM AND CARDIOVASCULAR STRUCTURES: Cardiac silhouette not enlarged. Central airways and mediastinal contour are unremarkable. BONES AND SOFT TISSUES: Possible small hiatal hernia. No demonstrated acute osseous changes. RAD/Chest PA and Lateral IMPRESSION: No radiographic evidence of acute cardiopulmonary disease. Electronically Signed: Andrew Montaño MD at 12:49 EDT ,
--- OUTSIDE RECORDS SUMMARY | 2024-05-20 12:29 | XMS RPT_ITS | CCD ---
Author Organization [facility] Care Team Providers Care Regulatory Compliance Director Name Role Phone YANETH ARZATE, DR KENT [...] UNKNOWN Attending Unavailable PROVIDER, UNKNOWN Admitting Unavailable Unavailable Primary Care Provider Unavailabl e Medications Current Medications Medication Drug Class(es) Dates Sig (Normalized) Sig (Original) atorvastatin 40 mg oral tablet (16 sources) HMG-CoA Reductase Inhibitor Start: 03-10-2022 take 1 tablet by mouth once daily atorvastatin (LIPITOR) 40 mg tablet Take 1 tablet by mouth once daily. 03/10/2022 Active Start: 01-21-2022 atorvastatin 4 0 mg oral tablet Dose : 40 mg = 1 tab(s), Oral, qDay, # 30 tab(s), 0 Refill(s) Start Date: 01/21/22 Status: Ordered Comment on above: Take 1 tablet by terrie th once daily. gabapentin 300 mg oral capsule (1 source) Anti-epileptic Agent Start: End: gabapentin 300 mg oral capsule Dose : 300 mg = 1 cap(s), Oral, TID, Patient to increase his gabapentin to twice a day for a week and then 3 times a day if tolerated, # 90 cap(s), 5 Refill(s), Pharmacy: [facility], Lumbar radiculopathy Lumbar herniated disc, 177.8, cm, .. Start Date: 01/21/22 Stop Date: 07/20/22 Status: Ordered hydroCHLOROthiazide 12.5 mg / lisinopril 20 mg oral tablet (16 sources) Thiazide Diuretic, Angiotensin Converting Enzyme Inhibitor Start: 022 take 1 tablet by mouth once daily lisinopril-hydroCHLO ROthiazide (PRINZIDE,ZESTORETIC ) 20-12.5 mg per tablet Take 1 tablet by mouth once daily. 03/10/2022 Active Start: 01-21-2022 take 1 tablet by terrie th once daily hydrochlorothiazide-lisinopril 12.5 mg-2 0 mg oral tablet Dose = 1 tab(s), Oral, Daily, # 30 tab(s), 0 Refill(s) Start Date: 01/21/22 Status: Ordered Comment on above: Take 1 tablet by terrie th once daily. [place] Essentials (1 source) Start: 01-21-2022 [place] Essentials Oral, BID, 0 Refill(s) Start Date: 01/21/22 Status: Ordered omeprazole 40 mg delayed release oral capsule (16 sources) Proton Pump Inhibitor Start: 03-10-2022 take 1 capsule by mouth once daily omeprazole (PRILOSEC) 40 mg capsule Take 1 capsule by mouth once daily. 03/10/2022 Active Start: 01-21-2022 omeprazole 40 mg oral delayed release capsule Dose : 40 mg = 1 cap(s), Oral, qDay, # 30 cap(s), 0 Refill(s) Start Date: 01/21/22 Status: Ordered Comment on above: Take 1 capsule by mo uth once daily. OTC NUTRITIONAL SUPPLEMENT (15 sources) take 4 capsules by mouth four times daily OTC NUTRITIONAL SUPPLEMENT Take 4 capsules by mouth four times daily. OMEGA XL supplement Active take 4 capsules by m outh four times daily OTC NUTRITIONAL SUPPLEMENT Take 4 capsul es by mouth four times daily. OMEGA XL supplement 0 Active Comment on above: Take 4 capsules by [facility] four times daily. OMEGA XL supplement Completed/Discontinued Medications Medication Drug Class(es) Dates Sig (Normalized) Sig (Original) acetaminophen 325 mg / HYDROcodone bitartrate 5 mg oral tablet (9 sources) Opioid Agonist Start: 01-21-2022 End: 11-07-2022 HYDROcodone-acetami nophen (NORCO) 5-325 mg per tablet Take by mouth. 0 01/21/2022 11/07/2022 Discontinued Start: 01-21-2022 take 1 tablet by [facility] twice daily as needed for pain [place] 325- 5 mg oral tablet Dose = 1 tab(s), Oral, BID, PRN as needed for pain, # 60 tab(s), 0 Refill(s), Pharmacy: [facility], Lumbar radiculopathy Lumbar herniated disc, 177.8, cm, 01/21/22 10:29:00 EDT, Height, 89.5 Start Date: 01/21/22 Status: Ordered Comment on above: Take by mouth. omega-3s/dha/epa/fish oil/D3 (OMEGA ESSENTIALS ORAL) (8 sources) Start: 01-21-2022 End: 11-07-2022 omega-3s/dha/epa/fish oil/D3 (OMEGA ESSENTIALS ORAL) Take by mouth. 0 01/21/2022 11/07/2022 Discontinued Start: 01-21-2022 omega-3s/dha/e pa/fish oil/D3 (OMEGA ESSENTIALS ORAL) Take by mouth. 0 01/21/2022 Active Comment on above: Take by mouth. Problems Active Problems Problem Classification Problem Date Documented Date Episodic/Chronic Esophageal disorders (9 sources) Gastroesophageal reflux disease; Translations: [Gastro-esophageal reflux disease without esophagitis] Onset: 08-04-2022 01-21-2022 Chronic Essential hypertension (10 sources) Hypertensive disorder; Translations: [Essential hypertension] Onset: 01-17-2022 01-21-2022 Chronic Nutritional deficiencies (9 sources) Vitamin D deficiency; Translations: [Vitamin D deficiency, unspecified] Onset: 06-27-2021 08-04-2022 Chronic Osteoarthritis (2 sources) Arthritis; Translations: [Osteoarthritis of right hip joint] 01-21-2022 Chronic Other connective tissue disease (1 source) Muscle pain; Translations: [Myalgia, other site] Episodic Other non-traumatic joint disorders (4 sources) Pain in right hip; Translations: [Pain in right hip] Onset: 03-13-2022 Episodic Other non-traumatic joint disorders (2 sources) Hip pain; Translations: [Pain in right hip] Onset: 03-13-2022 03-15-2022 Episodic Spondylosis; intervertebral disc disorders; other back [...] Name Value Interpretation Reference Range Facil ity HISTORY PHYSICALon HISTORY PHYSICAL HNO ID: [id number] Author: Art Coy MD Service: Pain Management Author Type: Physician Type: HANDP Filed: 11/07/2022 12:32 PM Note Text: HISTORY AND PHYSICAL EXAMINATION PATIENT NAME: Jon Salguero DATE of SERVICE: 11/07/2022 Jon Salguero is here for the pain mangement procedure. The patients presents with persistent pain complaints. Jon Salguero denies any interval changes or new pain complaints or focal neurologic deficits. PAST MEDICAL HISTORY Diagnosis Date Acid reflux [...] PROCEDURE 2006 r/o MS TONSILLECTOMY AND ADENOIDECTOMY Social History Tobacco Use Smoking status: Never Smokeless tobacco: Never Substance Use Topics Alcohol use: Not Currently Drug use: Never FAMILY HISTORY Problem Relation Age of Onset Brain Cancer Mother Ischemic Heart Disease Father Melanoma Father other (traumatic brain injury) Sister Stroke Brother ALLERGIES No Known Allergies Current Facility-Administere d Medications Medication Dose Route Frequency NaCl 0.9% iv infusion 30 mL/hr INTRAVENOUS CONTINUOUS Physical Exam: Performed in conjunction with observation. The patient is alert and oriented x3. The patient is in no acute distress. Neck: Supple. The range of motion is intact. Lungs: clear CVR: RRR. Extremities: no reported edema or erythema. Examination indicates no changes Impression: Chronic right hip paiin Plan: The informed consent has been obtained. The plan is to proceed with the procedure as planned. SIGNATURE: Art Coy MD DATE: November 07, 2022 TIME: 12:31 PM [facility] OPERATIVE NOon 11-07-2022 OPERATIVE NO HNO ID: [id number] Author: Art Coy MD Service: Pain Management Author Type: Physician Type: Operative Report Filed: 11/07/2022 1:22 PM Note Text: PATIENT NAME: Jon Salguero SERVICE DATE: 11/07/2022 PROCEDURE NOTE PREOPERATIVE DIAGNOSIS(ES) Right Hip pain Osteoarthritis of the Right hip POSTOPERATIVE DIAGNOSIS(ES): Same OPERATION: Right Hip joint injection under fluoroscopy. ANESTHESIA: Conscious sedation with Versed 3mg IV INDICATIONS: Jon Salguero presents for hip joint injection. Since the last visit, the patient denies any new pain complaints and denies any focal neurological deficits. The plan is to proceed with right hip joint injection. The risks and benefits discussed in the office were reviewed. The patient expressed understanding the risks and benefits and informed consent was obtained. OPERATIVE PROCEDURE: The patient was brought to the operating room. The patient was placed in the left lateral decub position. Continuous hemodynamic monitoring was initiated including blood pressure, EKG, and pulse oximetry. Supplemental oxygen per nasal canula was started. The intravenous medication was administered incrementally to provide conscious sedation and to allow the patient to remain comfortable and conversant throughout the procedure. The right hip area was prepped in sterile fashion. Upon lateral projection under fluoroscopy, right hip joint was identified. Entry point was marked and anesthetized with 0.25% Marcaine. This was followed by insertion of an 22-gauge spinal needle, which was inserted and advanced under fluoroscopy. Once the hip joint capsule was encountered, the aspiration was performed which was negative. This was followed by injection of Omnipaque 300, which revealed a spread into the joint capsule. There was no evidence of intravascular or intrathecal flow. This was then followed by a total injection of 4 mL of 0.25% Marcaine with 40 mg of Kenalog. The patient tolerated the procedure well. The needle was removed intact. Dry dressing was placed over the injection site. The patient was taken to the recovery room in stable condition. EBL: nil Start time: 1:14 PM End time: 1:22 PM I was present the entire time and personally performed the procedure. SIGNATURE: Art Coy MD DATE: November 07, 2022 TIME: 1:22 PM [facility] 10-02-2022 [facility] Telephone (PNMDNA) JON SALGUERO ([id number]) 1955 Date Time Provider Department 10/02/22 ART COY During your visit today, we recorded the following information about you: Eden Zamorano RN 10/02/2022 1:21 PM Signed Patient left voicemail 10/02/2022 at 1005 Patient calling to schedule Right Hip Joint Injection as recommended by Dr. Sushant Brown did not put in spine intervention order but did it under a consult to pain management order Office to contact patient within 5 business days to schedule Will have Dr. Coy review referral as well Patient added to injection scheduling spreadsheet at this time in [facility] Call back number: [phone] Nader Tucker Ma 10/07/2022 3:41 PM Signed Patient contacted via telephone to schedule injection. Patient scheduled for: November 07 Hold the following medication(s): - Fish oil for 5 days prior Pre-procedure Instructions reviewed over telephone and a list of instructions were sent via mail. Allergies As of Date: 10/02/2022 (No Known Allergies) Date Reviewed: 09/22/2022 Reviewed by: Renate Jackman Ma - Fully Assessed Reason for Visit: Consult [173] Prescriptions as of 10/07/2022 - omega-3s/dha/epa/fis h oil/D3 (OMEGA ESSENTIALS ORAL) Take by mouth. - HYDROcodone-acetamin ophen (NORCO) 5-325 mg per tablet Take by mouth. - lisinopril-hydroCHLO ROthiazide (PRINZIDE,ZESTORETIC ) 20-12.5 mg per tablet Take 1 tablet by mouth once daily. - atorvastatin (LIPITOR) 40 mg tablet Take 1 tablet by mouth once daily. - omeprazole (PRILOSEC) 40 mg capsule Take 1 capsule by mouth once daily. - OTC NUTRITIONAL SUPPLEMENT Take 4 capsules by mouth four times daily. 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 The patients presents with persistent pain complaints. Jon Salguero denies any interval changes or new pain complaints or focal neurologic deficits. PAST MEDICAL HISTORY Diagnosis Date Acid reflux Arthritis Fibromyalgia Hiatal hernia Hypercholesterolemia Hypertension PAST SURGICAL HISTORY Procedure Laterality Date HERNIA REPAIR HX Left KNEE SURGERY HX Right 1999 SHOULDER SURGERY HX Left 03/27/2021 rotator cuff repair, ASD, Claviculectomy WAS Dr Luz Marina [place] SPINAL TAP PROCEDURE 2006 r/o MS TONSILLECTOMY AND ADENOIDECTOMY Social History Tobacco Use Smoking status: Never Smokeless tobacco: Never Substance Use Topics Alcohol use: Not Currently Drug use: Never FAMILY HISTORY Problem Relation Age of Onset Brain Cancer Mother Ischemic Heart Disease Father Melanoma Father other (traumatic brain injury) Sister Stroke Brother ALLERGIES No Known Allergies Current Facility-Administere d Medications Medication Dose Route Frequency NaCl 0.9% iv infusion 30 mL/hr INTRAVENOUS CONTINUOUS Physical Exam: Performed in conjunction with observation. The patient is alert and oriented x3. The patient is in no acute distress. Neck: Supple. The range of motion is intact. Lungs: clear CVR: RRR. Extremities: no reported edema or erythema. Examination indicates no changes Impression: Lumbar disc displacement Lumbar radiculopathy Plan: The informed consent has been obtained. The plan is to proceed with the procedure as planned. SIGNATURE: Art Coy MD DATE: September 05, 2022 TIME: 2:12 PM [facility] OPERATIVE NOon 09-05-2022 OPERATIVE NO HNO ID: [id number] Author: Art Coy MD Service: Pain Management Author Type: Physician Type: Operative Report Filed: 09/05/2022 2:30 PM Note Text: PATIENT NAME: Jon Salguero SERVICE DATE: 09/05/2022 PROCEDURE NOTE PREOPERATIVE DIAGNOSIS(ES) Lumbar radiculopathy Lumbar disc displacement Lumbar canal stenosis without neurogenic claudication Lumbar DDD POSTOPERATIVE DIAGNOSIS(ES): Same PROCEDURE: Right L5-S1 lumbar transforaminal epidural steroid injection under fluoroscopy. ANESTHESIA: Conscious sedation with Versed 2mg IV INDICATIONS: The patient presents for lumbar transforaminal epidural steroid injection. Since the last assessment, the patient denies any new pain complaints and denies any focal neurological deficits. The risks and benefits of the procedure were discussed. Specifically, the risks of bleeding, infection, inadvertent dural puncture, spinal heaches, vasovagal reaction, epidural hematoma, partial or permanent nerve injury were covered. The potential side effects of medications used in procedures including increase in lumbar pain, headaches, facial redness or warmth (flushing), anxiety or mood swings, sleeplessness, fever, high blood sugar, brief reduction in immunity were discussed. The patient expressed understanding of potential risks and wishes to proceed with the procedure. PROCEDURE NOTE: The patient was brought to the operating room. The patient was placed in the prone position with pressure points protected. Continuous hemodynamic monitoring was initiated including blood pressure, EKG, and pulse oximetry. Supplemental oxygen per nasal canula was started. The intravenous medication was administered incrementally to provide conscious sedation and to allow the patient to remain comfortable and conversant throughout the procedure. The lower back was prepped in sterile fashion. Upon AP projection under a fluoroscopy, the lumbar L5-S1 level was identified. The fluoroscopy was rotated in oblique projection to identify the neuroforamen. Entry point was marked and anesthetized with 2ml of 0.25% Marcaine. This was followed by insertion of a 5 inch spinal needle, which was inserted and advanced towards the 12 o' clock of the L5-S1 neuroforamen. Once the Needle tip contacted the inferior lateral aspect of the pedicle, aspiration was performed which was negative for blood or CSF. This was followed by injection of 0.2 ml of Omnipaque 300, which revealed a spread through the neuroforamen into the anterior epidural space. There was no evidence of intravascular or intrathecal flow. This was then followed by a total injection of 2 mL of 0.25% Marcaine with 40 mg of Depomedrol. The patient tolerated the procedure well. The needle was removed intact. Dry dressing was placed over the injection site. The patient was taken to the recovery room in stable condition. EBL: nil Start time: 2:22 PM End time: 2:30 PM I was present the entire time and personally performed the procedure. SIGNATURE: Art Coy MD DATE: September 05, 2022 TIME: 2:30 PM [facility] XR FLUOROSCOPYon 09-05-2022 XR FLUOROSCOPY * * *Final Report* * * DATE OF EXAM: Sep 05 2022 2:31PM [facility] [id number] - XR FLUOROSCOPY / PROCEDURE REASON: pain * * * * Physician Interpretation * * * * INDICATION: pain TECHNIQUE: Fluoroscopy with 6 views of the lower lumbar spine Fluoroscopic Radiation Summary: Plane A, Air Kerma: 5.8 mGy Dose Area Product (DAP): 767.5 mGy*cm^2 Fluoro time: 0:12 min:sec FINDINGS/ IMPRESSION: A needle with injected contrast is seen in the L5-S1 foramen. Please refer to the performing LIP's report. Rate Manager: PSCB Transcribe Date/Time: Sep 05 2022 2:45P Dictated by : SUMMER COLEMAN MD This examination was interpreted and the report reviewed and electronically signed by: SUMMER COLEMAN MD on Sep 05 2022 2:45PM EST [id number] [facility] 08-29-2022 [facility] (PNMDNA) JON SALGUERO ([id number]) 1955 M Date Time Provider Department 08/29/22 ART COY PNWISHANNON During your visit today, we recorded the following information about you: Eden Zamorano RN 08/29/2022 12:[address] Coy reviewed case as recommended by Dr. Sushant Coy reviewed patient's MRI from 08/28/2022 Dr. Coy agrees to proceed with Right L5-S1 Lumbar Transforaminal Epidural Injection as recommended by Dr. Frank Coy states patient does not have to be seen in office an may proceed to be scheduled for procedure Spine intervention order pended to Dr. Brown for Right L5-S1 Lumbar Transforaminal Epidural Injection Eden Zamorano RN 08/29/2022 12:41 PM Signed Patient contacted at this time Patient made aware that he may proceed with injection and odes not need to be seen in office Patient scheduled for 09/05/2022 Reviewed procedure instructions verbally Patient verbalizes understanding Patient instructed to contact office with any additional questions or concerns Chris Newberry APRN.CORPORATE TAX PREPARER 09/02/2022 10:50 AM Signed Order signed off Allergies As of Date: 08/29/2022 (No Known Allergies) Date Reviewed: 08/19/2022 Reviewed by: Annie Mendoza LPN - Fully Assessed Reason for Visit: Clinical Data Abstractor - Other [3602] Orders [681] Primary Visit Diagnosis:Osteoarthr itis of spine with radiculopathy, lumbar region [M47.26] Other Visit Diagnosis:Spondylosi s of lumbosacral 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 myelopathy [M47.817] Order(s):SPINE INTERVENTION PROCEDURE [[id number]] Order #: [id number] Prescriptions as of 09/02/2022 - omega-3s/dha/epa/fis h oil/D3 (OMEGA ESSENTIALS ORAL) Take by mouth. - HYDROcodone-acetamin ophen (NORCO) 5-325 mg per tablet Take by mouth. - lisinopril-hydroCHLO ROthiazide (PRINZIDE,ZESTORETIC ) 20-12.5 mg per tablet Take 1 tablet by mouth once daily. - atorvastatin (LIPITOR) 40 mg tablet Take 1 tablet by mouth once daily. - omeprazole (PRILOSEC) 40 mg capsule Take 1 capsule by mouth once daily. - OTC NUTRITIONAL SUPPLEMENT Take 4 capsules by mouth four times daily. 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 Osteoarthritis of spine with radiculopathy, lumbar region TECHNIQUE: Routine lumbosacral spine MR protocol without gadolinium. MQ: [id number] COMPARISON: None. RESULT: Counting reference: Lumbosacral junction. For the purposes of this report, L4-5 is considered the level of the iliac crest and assume there are 5 lumbar-type vertebrae. Anatomic variant: None. Localizer images: Large sliding-type hiatal hernia. Alignment: Alignment is anatomic. Bone marrow signal/fracture: No evidence of pathologic marrow infiltration. Schmorl's node deformities in the lower thoracic and upper lumbar spine. No evidence of prior fracture. Conus: The conus is within normal limits of signal intensity and morphology. Paraspinal soft tissues: Paraspinal soft tissues are within normal limits. Lower thoracic spine: Visualized lower thoracic canal and foramina are patent. L1-L2: Disc bulge with superimposed central protrusion resulting in mild canal stenosis. Mild left neural foraminal narrowing. Right foramen is patent. L2-L3: Canal and foramina are patent L3-L4: Mild disc bulge, ligamentum flavum/facet hypertrophy with mild canal stenosis. Foramina are patent. L4-L5: Disc bulge with broad-based central protrusion, ligamentum flavum/facet hypertrophy and epidural fat result in moderate canal stenosis with bilateral subarticular recess effacement. Mild bilateral neural foraminal narrowing. L5-S1: Facet hypertrophy with mild bilateral foraminal narrowing. Canals patent. Sacrum and iliac wings: Degenerative change in the bilateral sacroiliac joints. IMPRESSION: Spondylotic changes as discussed, notable at L4-5 with moderate canal stenosis and bilateral subarticular recess effacement. Large sliding-type hiatal hernia. Please see the body of report for additional findings and further discussion. Anatomic Lumbar Variant: None. L4-5 is considered the level of the iliac crest and assume there are 5 lumbar-type vertebrae. Rate Manager: PSCB Transcribe Date/Time: Aug 28 2022 9:29A Dictated by : YAQUELIN DEVINE MD This examination was interpreted and the report reviewed and electronically signed by: YAQUELIN DEVINE MD on Aug 28 2022 9:39AM EST [id number] CN Normal [facility] CNOVon 08-19-2022 CNOV [facility] SALGUEROJON MEJIA ([id number]) 1955 M Date Time Provider Department 08/19/22 2:30 PM MIKO BLACKBURN [facility] During your visit today, we recorded the following information about you: Pulse Weight Height 63/minute 88.9 kg 1.727 m Miko Blackburn DO 08/22/2022 12:36 PM Signed Patient presents with: Right Hip - Brian Sunganitra Salguero is a 67 year old male who presents for evaluation for right hip pain. The patient states he sustained a fall about 1.5 years ago and has had persistent right hip pain since that time. The patient reports posterior hip pain and when questioned, points to the level of his piriformis. The patient has been recently evaluated by Dr. Brown, neurosurgery for spinal stenosis. The patient does [...] REPAIR HX Left KNEE SURGERY HX Right 2000 SHOULDER SURGERY HX Left 03/27/2021 rotator cuff repair, ASD, Claviculectomy [facility] Dr Luz [place] SPINAL TAP PROCEDURE 2006 r/o MS TONSILLECTOMY AND ADENOIDECTOMY FAMILY HISTORY Problem Relation Age of Onset Brain Cancer Mother Ischemic Heart Disease Father Melanoma Father other (traumatic brain injury) Sister Stroke Brother Social History Tobacco Use Smoking status: Never Smokeless tobacco: Never Substance Use Topics Alcohol use: Not Currently Drug use: Never Medications: Current Outpatient Medications Medication Sig omega-3s/dha/epa/fis h oil/D3 (OMEGA ESSENTIALS ORAL) Take by mouth. lisinopril-hydroCHLO ROthiazide (PRINZIDE,ZESTORETIC ) 20-12.5 mg per tablet Take 1 tablet by mouth once daily. atorvastatin (LIPITOR) 40 mg tablet Take 1 tablet by mouth once daily. omeprazole (PRILOSEC) 40 mg capsule Take 1 capsule by mouth once daily. OTC NUTRITIONAL SUPPLEMENT Take 4 capsules by mouth four times daily. OMEGA XL supplement HYDROcodone-acetamin ophen (NORCO) 5-325 mg per tablet Take by mouth. (Patient not taking: Reported on 08/19/2022) No current facility-administere d medications for this visit. Allergies: ALLERGIES No [...] Tenderness to palpation Greater Trochanter non tender rotary furnace tender to palpation Sacroiliac Joints non tender [...] the piriformis. We discussed the complex relationship bet (more content not included)... [facility] Diana 08[facility]06[facility]20[facility] JON SALGUERO ([id number]) 1955 M Date Time Provider Department 08/06/22 SUSHANT BROWNLM During your visit today, we recorded the following information about you: Autumn Burr MA 08/06/2022 2:08 PM Signed Multiple referrals placed for patient both via [employer] online portal AND [facility] referral fax at [phone] Per most recent NSGY note from Dr. Shearer, pt requesting specialty locations closer to residence in [place], [place]. Faxed referrals to [facility] at [phone] requesting [facility] ( or any additional locations close to [place]) for PM and Ortho. Referral for ortho ( [facility]) has been submitted via the [facility] Internal Referral request form on the [facility] Appointment Portal was placed before seeing providers OV notes requesting alternative locations. Confirmation # [id number] JAYDEN Elizabeth MA 08/13/2022 2:57 PM Signed Patient scheduled with Dr. Miko Blackburn at [facility] on 08.19.2022 for ortho referral. Please see below for status of PM referral. Autumn Burr MA Allergies As of Date: 08/06/2022 (No Known Allergies) Date Reviewed: 08/04/2022 Reviewed by: Renate Jackman Ma - Fully Assessed Reason for Visit: External Referrals/resources [909] Cmt: [facility] - PM and Ortho Internal Referrals/resources [018] Cmt: [facility] - ortho Prescriptions as of 08/13/2022 - omega-3s/dha/epa/fis h oil/D3 (OMEGA ESSENTIALS ORAL) Take by mouth. - HYDROcodone-acetamin ophen (NORCO) 5-325 mg per tablet Take by mouth. - lisinopril-hydroCHLO ROthiazide (PRINZIDE,ZESTORETIC ) 20-12.5 mg per tablet Take 1 tablet by mouth once daily. - atorvastatin (LIPITOR) 40 mg tablet Take 1 tablet by mouth once daily. - omeprazole (PRILOSEC) 40 mg capsule Take 1 capsule by mouth once daily. - OTC NUTRITIONAL SUPPLEMENT Take 4 capsules by mouth four times daily. 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*08/04/2022 Encounter Status:Closed by AUTUMN BURR on 08/06/22 [facility] CNOVon 08-04-2022 CNOV Office Visit (NEAGCLM) JON SALGUERO ([id number]) 1955 M Date Time Provider Department 08/04/22 9:30 AM SUSHANT BROWN NEAGCLM During your visit today, we recorded the following information about you: Pulse Blood pressure Weight Height 73/minute 135/80 89.2 kg 1.727 m Sushant Brown MD, PhD 08/04/2022 12:35 PM Signed NEUROSURGERY FOLLOW UP OFFICE NOTE Sushant Brown MD, PhD Date of visit: August 04, 2022 Patient Name: Mr.Alan Matthew Salguero Date of : 1955 Current Age: [age] year old Sex: male MRN/E# [id number] Last Office Visit: 03/21/2022 Chief Complaint: Patient [...] bowel or bladder dysfunction. He notes taking [place] at night that helps relieve some of [...] Pain Level: 6 Pain Location: Back-Lower Description: Aching;Throbbing;Sti ffness Duration Units: Months Frequency: Continuous Intervention/Comfort measure: Medication;Therapeut ic techniques-CPRP PAST MEDICAL HISTORY Diagnosis Date Acid [...] Current Outpatient Medications Medication Sig Dispense Refill omega-3s/dha/epa/fis h oil/D3 (OMEGA ESSENTIALS ORAL) Take by mouth. HYDROcodone-acetamin ophen (NORCO) 5-325 mg per tablet Take by mouth. lisinopril-hydroCHLO ROthiazide (PRINZIDE,ZESTORETIC ) 20-12.5 mg per tablet Take 1 tablet by mouth once daily. atorvastatin (LIPITOR) 40 mg tablet Take 1 tablet by mouth once daily. omeprazole (PRILOSEC) 40 mg capsule Take 1 capsule by mouth once daily. OTC NUTRITIONAL SUPPLEMENT Take 4 capsules by mouth four times daily. OMEGA XL supplement No current facility-administere d medications for this visit. REVIEW OF SYSTEMS [...] Endocrine: Negative for cold intolerance and heat intol (more content not included)... Normal [facility] CNTHERAPYon 05-06-2022 CNTHERAPY OT/PT/Speech Visit (PTWS) JON SALGUERO ([id number]) 1955 M Date Time Provider Department 05/06/22 6:15 PM CHARLIE OSUNA PTWS Date Time Provider Department Center 05/06/2022 6:15 PM [id number], CORE[facility] PTWS Natanael Phelan Reason for Visit: Physical Therapy [503] PT Discharge [752] Primary Visit Diagnosis:Osteoarthr itis of spine with radiculopathy, lumbar region [M47.26] Allergies As of Date: 05/06/2022 (No Known Allergies) Date Reviewed: 03/13/2022 Reviewed by: Autumn Burr MA - Fully Assessed Prescriptions as of 07/31/2022 - lisinopril-hydroCHLO ROthiazide (PRINZIDE,ZESTORETIC ) 20-12.5 mg per tablet Take 1 tablet by mouth once daily. - atorvastatin (LIPITOR) 40 mg tablet Take 1 tablet by mouth once daily. - omeprazole (PRILOSEC) 40 mg capsule Take 1 capsule by mouth once daily. - OTC NUTRITIONAL SUPPLEMENT Take 4 capsules by mouth four times daily. OMEGA XL supplement Normal [facility] CNTHERAPYon 04-29-2022 CNTHERAPY OT/PT/Speech Visit (PTWS) JON SALGUERO ([id number]) 1955 M Date Time Provider Department 04/29/22 5:30 PM CHARLIE OSUNA PTOTILIO Date Time Provider Department Center 04/29/2022 5:30 PM [id number], [facility] PTOTILIO Phelan Reason for Visit: PT Progress Note [1596] Primary Visit Diagnosis:Osteoarthr itis of spine with radiculopathy, lumbar region [M47.26] Allergies As of Date: 04/29/2022 (No Known Allergies) Date Reviewed: 03/13/2022 Reviewed by: Autumn Burr MA - Fully Assessed Prescriptions as of 04/29/2022 - lisinopril-hydroCHLO ROthiazide (PRINZIDE,ZESTORETIC ) 20-12.5 mg per tablet Take 1 tablet by mouth once daily. - atorvastatin (LIPITOR) 40 mg tablet Take 1 tablet by mouth once daily. - omeprazole (PRILOSEC) 40 mg capsule Take 1 capsule by mouth once daily. - OTC NUTRITIONAL SUPPLEMENT Take 4 capsules by mouth four times daily. OMEGA XL supplement Normal [facility] CNTHERAPYon 04-22-2022 CNTHERAPY OT/PT/Speech Visit (PTWS) JON SALGUERO ([id number]) 1955 M Date Time Provider Department 04/22/22 5:30 PM CHARLIE OSUNA PTOTILIO Date Time Provider Department [place] 04/22/2022 5:30 PM [id number], C[facility] PTWS Natanael Phelan Reason for Visit: Physical Therapy [503] Primary Visit Diagnosis:Osteoarthr itis of spine with radiculopathy, lumbar region [M47.26] Allergies As of Date: 04/22/2022 (No Known Allergies) Date Reviewed: 03/13/2022 Reviewed by: Autumn Burr MA - Fully Assessed Prescriptions as of 04/22/2022 - lisinopril-hydroCHLO ROthiazide (PRINZIDE,ZESTORETIC ) 20-12.5 mg per tablet Take 1 tablet by mouth once daily. - atorvastatin (LIPITOR) 40 mg tablet Take 1 tablet by mouth once daily. - omeprazole (PRILOSEC) 40 mg capsule Take 1 capsule by mouth once daily. - OTC NUTRITIONAL SUPPLEMENT Take 4 capsules by mouth four times daily. OMEGA XL supplement Normal [facility] CNTHERAPYon 04-10-2022 CNTHERAPY OT/PT/Speech Visit (PTWS) JON SALGUERO ([id number]) 1955 M Date Time Provider Department 04/10/22 7:30 AM CHARLIE OSUNA Date Time Provider Department Center 04/10/2022 7:30 AM [id number], COREY PTOTILIO Phelan Reason for Visit: Physical Therapy [503] Primary Visit Diagnosis:Osteoarthr itis of spine with radiculopathy, lumbar region [M47.26] Allergies As of Date: 04/10/2022 (No Known Allergies) Date Reviewed: 03/13/2022 Reviewed by: Autumn Burr MA - Fully Assessed Prescriptions as of 04/10/2022 - lisinopril-hydroCHLO ROthiazide (PRINZIDE,ZESTORETIC ) 20-12.5 mg per tablet Take 1 tablet by mouth once daily. - atorvastatin (LIPITOR) 40 mg tablet Take 1 tablet by mouth once daily. - omeprazole (PRILOSEC) 40 mg capsule Take 1 capsule by mouth once daily. - OTC NUTRITIONAL SUPPLEMENT Take 4 capsules by mouth four times daily. OMEGA XL supplement Normal [facility] CNTHERAPYon 04-01-2022 CNTHERAPY OT/PT/Speech Visit (PTWS) JON SALGUERO ([id number]) 1955 M Date Time Provider Department 04/01/22 6:15 PM CHARLIE OSUNA PTOTILIO Date Time Provider Department Center 04/01/2022 6:15 PM [id number], COREY PTOTILIO Phelan Reason for Visit: Physical Therapy [503] Primary Visit Diagnosis:Osteoarthr itis of spine with radiculopathy, lumbar region [M47.26] Allergies As of Date: 04/01/2022 (No Known Allergies) Date Reviewed: 03/13/2022 Reviewed by: Autumn Burr MA - Fully Assessed Prescriptions as of 04/01/2022 - lisinopril-hydroCHLO ROthiazide (PRINZIDE,ZESTORETIC ) 20-12.5 mg per tablet Take 1 tablet by mouth once daily. - atorvastatin (LIPITOR) 40 mg tablet Take 1 tablet by mouth once daily. - omeprazole (PRILOSEC) 40 mg capsule Take 1 capsule by mouth once daily. - OTC NUTRITIONAL SUPPLEMENT Take 4 capsules by mouth four times daily. OMEGA XL supplement Normal [facility] CNTHERAPYon 03-25-2022 CNTHERAPY OT/PT/Speech Visit (PTWS) JON SALGUERO ([id number]) 1955 M Date Time Provider Department 03/25/22 7:00 AM CHARLIE OSUNA PTWS Date Time Provider Department [place] 03/25/2022 7:00 AM [id number], COREY PTOTILIO Natanael Phelan Reason for Visit: PT Eval [747] Primary Visit Diagnosis:Osteoarthr itis of spine with radiculopathy, lumbar region [M47.26] Allergies As of Date: 03/25/2022 (No Known Allergies) Date Reviewed: 03/13/2022 Reviewed by: Autumn Burr MA - Fully Assessed Prescriptions as of 03/25/2022 - lisinopril-hydroCHLO ROthiazide (PRINZIDE,ZESTORETIC ) 20-12.5 mg per tablet Take 1 tablet by mouth once daily. - atorvastatin (LIPITOR) 40 mg tablet Take 1 tablet by mouth once daily. - omeprazole (PRILOSEC) 40 mg capsule Take 1 capsule by mouth once daily. - OTC NUTRITIONAL SUPPLEMENT Take 4 capsules by mouth four times daily. OMEGA XL supplement Normal [facility] Diana 03-21-2022 CNPN Telephone (NEAGCLM) JON SALGUERO ([id number]) 1955 M Date Time Provider Department 03/21/22 SUSHANT BROWN NEAGCLM During your visit today, we recorded the following information about you: Pavel Villa RN 03/21/2022 2:50 PM Signed Left message returning patients call. Left number and extension to call back at. Pavel Villa RN Allergies As of Date: 03/21/2022 (No Known Allergies) Date Reviewed: 03/13/2022 Reviewed by: Autumn Burr MA - Fully Assessed Reason for Visit: Returning Patient's Call [408] Prescriptions as of 03/21/2022 - lisinopril-hydroCHLO ROthiazide (PRINZIDE,ZESTORETIC ) 20-12.5 mg per tablet Take 1 tablet by mouth once daily. - atorvastatin (LIPITOR) 40 mg tablet Take 1 tablet by mouth once daily. - omeprazole (PRILOSEC) 40 mg capsule Take 1 capsule by mouth once daily. - OTC NUTRITIONAL SUPPLEMENT Take 4 capsules by mouth four times daily. OMEGA XL supplement Problem List As Of Date 03/21/2022 Noted Resolved Pain in right hip [M25.551] 03/13/2022 Encounter Status:Closed by PAVEL VILLA on 03/21/22 [facility] XR HIP BILATERAL 5V PEL/AP/L AT EACH HIPon 03-17-2022 IMPRESSION: No acute fracture or hip dislocation Rate Manager: YARELIS Transcribe Date/Time: Mar 17 2022 3:34P Dictated by : MIKO BURGOS MD This examination was interpreted and the report reviewed and electronically signed by: MIKO BURGOS MD on Mar 17 2022 3:36PM [facility] DIVISION OF RADIOLOGY * * *Final Report* * * DATE OF EXAM: Mar 15 2022 8:54AM [id number] - XR HIP SUSAN 5V PEL+ AP/LAT EA HIP / PROCEDURE REASON: Pain in right hip * * * * Physician Interpretation * * * * EXAMINATION: XR HIP SUSAN 5V PEL+ AP/LAT EA HIP CLINICAL HISTORY: Right hip pain Technique: XR HIP SUSAN 5V PEL+ AP/LAT EA HIP -- BILATERAL with 5 views on 5 images Comparison: None RESULT: No acute fracture or dislocation. Joint spaces are maintained. DIVISION OF RADIOLOGY Provider, [facility] [place] - 03/17/2022 * * *Final Report* * * DATE OF EXAM: Mar 15 2022 8:54AM [id number] - XR HIP SUSAN 5V PEL+ AP/LAT EA HIP / PROCEDURE REASON: Pain in right hip * * * * Physician Interpretation * * * * EXAMINATION: XR HIP SUSAN 5V PEL+ AP/LAT EA HIP CLINICAL HISTORY: Right hip pain Technique: XR HIP SUSAN 5V PEL+ AP/LAT EA HIP -- BILATERAL with 5 views on 5 images Comparison: None RESULT: No acute fracture or dislocation. Joint spaces are maintained. IMPRESSION IMPRESSION: No acute fracture or hip dislocation Rate Manager: PSCB Transcribe Date/Time: Mar 17 2022 3:34P Dictated by : MIKO BURGOS MD This examination was interpreted and the report reviewed and electronically signed by: MIKO BURGOS MD on Mar 17 2022 3:36PM EST [place] XR HIP BILATERAL 5V PEL/AP/L AT EACH HIPOrdered By: [facility] Provider on 03-17-2022 [place] XR HIP SUSAN 5V PEL+ AP/LAT EA HIPon 03-15-2022 XR HIP SUSAN 5V PEL+ AP/LAT EA HIP * * *Final Report* * * DATE OF EXAM: Mar 15 2022 8:54AM [id number] - XR HIP SUSAN 5V PEL+ AP/LAT EA HIP / PROCEDURE REASON: Pain in right hip * * * * Physician Interpretation * * * * EXAMINATION: XR HIP SUSAN 5V PEL+ AP/LAT EA HIP CLINICAL HISTORY: Right hip pain Technique: XR HIP SUSAN 5V PEL+ AP/LAT EA HIP -- BILATERAL with 5 views on 5 images Comparison: None RESULT: No acute fracture or dislocation. Joint spaces are maintained. IMPRESSION: No acute fracture or hip dislocation Rate Manager: PSCB Transcribe Date/Time: Mar 17 2022 3:34P Dictated by : MIKO BURGOS MD This examination was interpreted and the report reviewed and electronically signed by: MIKO BURGOS MD on Mar 17 2022 3:36PM EST [id number] Normal [facility] XR HIP BILATERAL 5V PEL/AP/L AT EACH HIPon 03-15-2022 Radiology Study observation (narrative) [place] CNPNon 03-14-2022 CNPN Telephone (NEAGCLM) JON SALGUERO ([id number]) 1955 M Date Time Provider Department 03/14/22 SUSHANT BROWN NEAGCLM During your visit today, we recorded the following information about you: Autumn Burr MA 03/14/2022 4:05 PM Signed Referral for PT has been submitted via the [facility] Internal Referral request form on the [facility] Appointment Portal. Confirmation # [id number] Noted patient preference of [facility] Natanael on referral. JAYDEN Elizabeth MA 03/24/2022 3:39 PM Signed Patient scheduled for PT on 03.25.2022. Autumn Burr MA Allergies As of Date: 03/14/2022 (No Known Allergies) Date Reviewed: 03/13/2022 Reviewed by: Autumn Burr MA - Fully Assessed Reason for Visit: Internal Referrals/resources [908] Cmt: PT Prescriptions as of 03/24/2022 - lisinopril-hydroCHLO ROthiazide (PRINZIDE,ZESTORETIC ) 20-12.5 mg per tablet Take 1 tablet by mouth once daily. - atorvastatin (LIPITOR) 40 mg tablet Take 1 tablet by mouth once daily. - omeprazole (PRILOSEC) 40 mg capsule Take 1 capsule by mouth once daily. - OTC NUTRITIONAL SUPPLEMENT Take 4 capsules by mouth four times daily. OMEGA XL supplement Problem List As Of Date 03/14/2022 Noted Resolved Pain in right hip [M25.551] 03/13/2022 Encounter Status:Closed by AUTUMN BURR on 03/14/22 [facility] CNOVon 03-13-2022 CNOV Office Visit (NEAGCLM) JON SALGUERO ([id number]) 1955 M Date Time Provider Department 03/13/22 3:30 PM SUSHANT BROWN NEAGCLM During your visit today, we recorded the following information about you: Pulse Blood pressure Weight Height 75/minute 122/66 98.5 kg 1.727 m Sushant Brown MD, PhD 03/13/2022 5:02 PM Signed NEUROSURGERY CONSULT NOTE Sushant Brown MD, PhD Date of visit: March 13, 2022 Patient Name: Mr.Alan Matthew Salguero Date of : 1955 Current Age: [age] year old Sex: male MRN/E# [id number] Chief Complaint: No chief complaint on file. [...] current outpatient medications on file. No current facility-administere d medications for this visit. REVIEW OF SYSTEMS [...] stiffness. Skin: Negative for rash and wound. Allergic/Imm (more content not included)... Normal [facility] Vital Signs Date Time Vital Sign Value Performing Clinician Faci lity 09-22-2022 09:13-0500 Body height 177.8 cm Sushant Brown MD, PhD Work Phone: [place] 09-22-2022 09:13-0500 Body weight 88.2 kg Sushant Brown MD, PhD Work Phone: [place] 09-22-2022 09:13-0500 Diastolic blood pressure 85 mm[Hg] Sushant Brown MD, PhD Work Phone: [place] 09-22-2022 09:13-0500 Heart rate 68 /min Sushant Brown MD, PhD Work Phone: [place] 09-22-2022 09:13-0500 SaO2% (BldA) [Mass fraction] 98 % Sushant Brown MD, PhD Work Phone: [place] 09-22-2022 09:13-0500 Systolic blood pressure 135 mm[Hg] Sushant Brown MD, PhD Work Phone: [place] 08-19-2022 14:50-0500 Body height 172.7 cm Miko Alexey DO Work Phone: [place] 08-19-2022 14:50-0500 Body weight 88.91 kg Miko Alexey DO Work Phone: [place] 08-19-2022 14:50-0500 Heart rate 63 /min Miko Alexey DO Work Phone: [place] 08-19-2022 14:50-0500 SaO2% (BldA) [Mass fraction] 96 % Miko Blackburn DO Work Phone: [place] 03-13-2022 15:09-0400 Body height 172.7 cm Sushant Brown MD, PhD Work Phone: [place] 03-13-2022 15:09-0400 Body weight 98.5 kg Sushant Brown MD, PhD Work Phone: [place] 03-13-2022 15:09-0400 Diastolic blood pressure 66 mm[Hg] Sushant Brown MD, PhD Work Phone: [place] 03-13-2022 15:09-0400 Heart rate 75 /min Sushant Brown MD, PhD Work Phone: [place] 03-13-2022 15:09-0400 SaO2% (BldA) [Mass fraction] 97 % Sushant Brown MD, PhD Work Phone: [place] 03-13-2022 15:09-0400 Systolic blood pressure 122 mm[Hg] Sushant Brown MD, PhD Work Phone: [place] Encounters Encounter Date Encounter Type Care Provider Facility Start: 11-07-2022 End: 11-07-2022 ambulatory UNKNOWN PROVIDER Facility:[facility] Start: 10-10-2022 Orders Only Art Coy MD Work Phone: Pain Management Comment on above: Pain of right hip sylvia int (Primary Dx) Start: 10-02-2022 Telephone encounter Art ayoub MD Work Phone: Pain Management Comment on above: Consult Start: 09-22-2022 End: 09-22-2022 Patient encounter procedure Sushant Brown MD, PhD Work Phone: [facility] Comment on above: Pain in right hip (P rimary Dx) Start: 09-05-2022 End: 09-05-2022 ambulatory UNKNOWN PROVIDER Facility:[facility] Start: 08-29-2022 Orders Only Art Coy MD Work Phone: Pain Management Comment on above: Osteoarthritis of sp ine with radiculopathy, lumbar region (Primary Dx); Spondylosis of lumbosacral 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 myelopathy Clinical Data Abstractor - O ther; Orders Start: 08-28-2022 End: 08-28-2022 ambulatory SUSHANT NICKJOONERIKKonstantin Facility:[facility] Start: 08-28-2022 End: 08-28-2022 Subsequent hospital visit by physician [facility] (I-Stat/1.5t) Work Phone: Radiology Comment on above: Spinal stenosis of l umbar region, unspecified whether neurogenic claudication present [M48.061] Start: 08-19-2022 End: 08-19-2022 ambulatory MIKO BLACKBURN Facility:[id number] Start: 08-19-2022 End: 08-19-2022 Patient encounter procedure Miko Blackburn DO Work Phone: [facility] Comment on above: Primary osteoarthrit is of right hip (Primary Dx); Piriformis muscle pain Start: 08-06-2022 Telephone encounter Sushant kelley MD, PhD Work Phone: [facility] Comment on above: External Referrals/r esources ([facility] - PM and Ortho); Internal Referrals/resources ([facility] - ortho) Start: 08-04-2022 End: 08-04-2022 ambulatory SUSHANT BROWN Facility:[facility] Start: 05-06-2022 End: 05-06-2022 ambulatory CHARLIE OSUNA Facility:[facility] Start: 05-06-2022 End: 05-06-2022 ambulatory Charlie Osuna PT [facility] Comment on above: Osteoarthritis of sp ine with radiculopathy, lumbar region (Primary Dx) Start: 04-29-2022 End: 04-29-2022 ambulatory CHARLIE OSUNA Facility:[facility] Start: 04-22-2022 End: 04-22-2022 ambulatory CHARLIE OSUNA Facility:[facility] Start: 04-22-2022 End: 04-22-2022 ambulatory Charlie Osuna PT [facility] Comment on above: Osteoarthritis of sp ine with radiculopathy, lumbar region (Primary Dx) Start: 04-10-2022 End: 04-10-2022 ambulatory CHARLIE OSUNA Facility:[facility] Start: 04-10-2022 End: 04-10-2022 ambulatory Charlie Osuna PT [facility] Comment on above: Osteoarthritis of sp ine with radiculopathy, lumbar region (Primary Dx) Start: 04-01-2022 End: 04-02-2022 ambulatory CHARLIE OSUNA Facility:[facility] Start: 03-25-2022 End: 03-25-2022 ambulatory Charlie Osuna PT [facility] Comment on above: Osteoarthritis of sp ine with radiculopathy, lumbar region (Primary Dx) Start: 03-15-2022 End: 03-15-2022 ambulatory SUSHANT BROWN Facility:[facility] Start: 03-15-2022 End: 03-15-2022 Subsequent hospital visit by physician [facility] Work Phone: Radiology Comment on above: Pain in right hip [M 25.551] Start: 03-14-2022 Telephone encounter Sushant kelley MD, PhD Work Phone: [facility] Comment on above: Internal Referrals/r esources (PT) Start: 03-13-2022 End: 03-14-2022 ambulatory SUSHANT BORWN Facility:[facility] Start: 03-13-2022 End: 03-13-2022 Patient encounter procedure Sushant Brown MD, PhD Work Phone: [facility] Comment on above: Osteoarthritis of sp ine with radiculopathy, lumbar region (Primary Dx); Pain in right hip Start: 01-21-2022 End: 01-21-2022 Patient encounter procedure ROM JETT MD [facility] Procedures Date Procedure Procedure Detail Performing Clinician Start: 08-28-2022 Mri spinal canal lum bar w/o contrast material Sushant Brown MD, PhD Work Phone: Start: 03-15-2022 Radex hips bilateral with pelvis minimum 5 views Sushant Brown MD, PhD Work Phone: Start: 11-19-2021 Epidural steroid injection ROM JETT MD Comment on above: L4-5, Dr. Waggoner Start: 03-27-2021 History of arthrosco pic procedure on shoulder ROM JETT MD Comment on above: Dr. Luz Marina Wood Start: 07-27-1999 Arthroscopic knee operation ROM JETT MD Start: 07-27-1956 Tonsillectomy ROM JETT MD Hernia of abdominal cavity (disorder) ROM JETT MD Plan of Treatment Date Care Activity Detail Author Start: 2028 RSV Vaccine (1 - 1-d ose 75+ series) RSV Vaccine (1 - 1-dose 75+ series) [place] Start: 03-27-2024 Covid-19 Vaccine ( season) Covid-19 Vaccine ( season) [place] Start: 03-27-2024 Influenza vaccination Influenza Vacc ine (#1) [place] Start: 07-27-2023 Advance Directive Discussion Advance Directive Discussion [place] Start: 03-27-2023 Influenza vaccination Influenza Vacc ine (#1) [place] Start: 07-27-2022 ADVANCE DIRECTIVE DISCUSSION ADVANCE DIRECTIVE DISCUSSION [place] Start: 07-27-2022 DEPRESSION ASSESSMENT DEPRESSION ASS ESSMENT [place] Start: 03-27-2022 Influenza vaccination INFLUENZA (#1) [place] Start: 07-27-2021 ADVANCE DIRECTIVE DISCUSSION ADVANCE DIRECTIVE DISCUSSION [place] Start: 07-27-2021 DEPRESSION ASSESSMENT DEPRESSION ASS ESSMENT [place] Start: 2018 Pneumococcal Vaccine : 65+ (1 - PCV) Pneumococcal Vaccine: 65+ (1 - PCV) [place] Start: 2018 Pneumococcal Vaccine : 65+ (1 of 1 - PCV) Pneumococcal Vaccine: 65+ (1 of 1 - PCV) [place] Start: 2018 PNEUMOCOCCAL: 65+ (1 - PCV) PNEUMOCOCCAL: 65+ (1 - PCV) [place] Start: 2013 RSV Vaccine (1 - 1-d ose 60+ series) RSV Vaccine (1 - 1-dose 60+ series) [place] Start: 2008 PROSTATE CANCER SCREENING DISCUSSION PROSTATE CANCER SCREENING DISCUSSION [place] Start: 2003 SHINGRIX VACCINE (1 of 2) SHINGRIX VACCINE (1 of 2) [place] Start: 1998 COLOGUARD (FIT-DNA) COLOGUARD (FIT-D NA) [place] Start: 1998 Colonoscopy COLONOSCOPY [place] Start: 1998 COLORECTAL CANCER SCREENING COLORECTAL CANCER SCREENING [place] Start: [address] COLONOGRAPHY [facility] Start: 1998 DIABETES SCREEN DIABETES SCREEN [facility] Start: 1998 Diabetes Screening Diabetes Screenin g [place] Start: 1998 FECAL OCCULT BLOOD FECAL OCCULT BLOO D [place] Start: 1998 Screening for malign ant neoplasm of colon [place] Start: 1998 SIGMOIDOSCOPY SIGMOIDOSCOPY [facility] Start: 1988 Lipid 1996 panel - Serum or Plasma Lipid Screening [place] Start: 1988 Lipid panel Lipid Screening [facility] Start: 1988 LIPID SCREEN LIPID SCREEN [place] Start: 1972 Urine microalbumin profile [place] Start: 1971 ANNUAL PCP TEAM [employer] FI[employer] MANAGER FRANCES DISEASE VISIT ANNUAL PCP TEAM CHRONIC DISEASE VISIT [place] Start: 1971 Anxiety Screening Anxiety Screening [place] Start: 1971 BP CONTROLLED (<130/80) BP CONTROLLE D (<130/80) [place] Start: 1971 Depression Screening Depression Scre ening [place] Start: 1971 HEPATITIS C SCREENING HEPATITIS C [facility] Start: 1971 Hepatitis C screening Hepatitis C [facility] Start: 1965 Adult depression screening assessment DEPRESSION SCREENING [place] Start: 01[birth year]14-1956 COVID-19 VACCINE (#1) COVID-19 VACCI NE (#1) [place] PT PLAN OF CARE CERTIFICATION PT PLAN OF CARE CERTIFICATION Procedures Routine Osteoarthritis of spine with radiculopathy, lumbar region Ordered: 03/25/2022 [facility] Work Phone: Comment on above: Ordered: 03/25/2022 SPINE INTERVENTION PROCEDURE SPINE INTERVENTION PROCEDURE Procedures Routine Osteoarthritis of spine with radiculopathy, 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 Ordered: 09/02/2022 [facility] Work Phone: Comment on above: Ordered: 09/02/2022 End: 04-12-2023 XR HIP BILATERAL 5V PEL/AP/LAT EACH HIP XR HIP BILATERAL 5V PEL/AP/LAT EACH HIP Radiology Routine Pain in right hip 1 Occurrences starting 03/13/2022 until 04/12/2023 [facility] Work Phone: Comment on above: 1 Occurrences starti ng 03/13/2022 until 04/12/2023 [facility] Payers Date Payer Category Payer Medicare UHC AARP MEDICAR E [facility] AAR MEDICARE HMO [id number] 2021-Present [phone] [address] [address] [place] [address] HMO [id number] 2021 Medicare [id number] Social History Date Type Detail Facility Start: 01-21-2022 End: 03-13-2022 Tobacco smoking status Never smoked tobacco (finding) [facility] Sex Assigned At Sex [facility] Start: 03-13-2022 Tobacco use and exposure Smokeless tobacco non-user [place] Start: 03-13-2022 End: 08-19-2022 Alcohol intake Ex-drinker (finding) [place] Start: 1955 Sex Assigned At Not on file [facility] Start: 03-03-2022 End: 03-13-2022 Exposure to SARS-CoV-2 (event) Not sure [place] Start: 03-13-2022 End: 08-19-2022 History of Social function [place] Start: 03-13-2022 End: 08-19-2022 Tobacco use panel [place] National Score (1-100), lower number is lower risk 47 [place] Clinical Notes 03-13-2022 to 10-07-2022 Telephone Encounter - Nader Tucker Ma - 10/07/2022 3:36 PM EDTTelephone Encounter - Eden Zamorano RN - 10/02/2022 1:19 PM Nestor Brown MD, PhD - 09/22/2022 9:07 AM ESTPatient [...] Joint Injection as recommended by Dr. Sushant Brown did not put in spine intervention order but did it under a consult to pain management order Office to contact patient within 5 business days to schedule Will have Dr. Coy review referral as well Patient added to injection scheduling spreadsheet at this time in [facility] Call back number: [phone] documented in this encounter [place] 09-22-2022 History of Presen t illness Narrative NEUROSURGERY FOLLOW UP OFFICE NOTE Sushant Brown MD, PhD Date of visit: September 22, 2022 Patient Name: Mr.Alan Matthew Salguero Date of : 1955 Current Age: [age] year old Sex: male MRN/E# [id number] Last Office Visit: 08/06/2022 Chief Complaint: Patient [...] Epidural steroid Injection KNEE SURGERY HX Right 2000 SHOULDER SURGERY HX Left 03/27/2021 rotator cuff [...] him sooner than that as he may arbitrator appropriate. Attestation: The following portions of the [...] and is in agreement with plan. Sushant Brown MD, PhD This note was partially generated using Inogen voice recognition system, and there may be some incorrect words, spellings, and punctuation that were not noted in checking the note before saving. documented in this encounter [place] 09-02-2022 Miscellaneous Notes Order signed off Patient contacted at this time Patient made aware that he may proceed with injection and odes not need to be seen in office Patient scheduled for 09/05/2022 Reviewed procedure instructions verbally Patient verbalizes understanding Patient instructed to contact office with any additional questions or concerns Dr. Coy reviewed case as recommended by Dr. Sushant Coy reviewed patient's MRI from 08/28/2022 Dr. Coy agrees to proceed with Right L5-S1 Lumbar Transforaminal Epidural Injection as recommended by Dr. Frank Coy states patient does not have to be seen in office an may proceed to be scheduled for procedure Spine intervention order pended to Dr. Brown for Right L5-S1 Lumbar Transforaminal Epidural Injection documented in this encounter [place] 08-28-2022 Note HNO ID: [id number] Author: MILY Sheppard) Service: ? Author Type: Technologist Type: Progress [...] PERIPHERAL IV DATA: Not applicable SIGNED BY: MILY Sheppard) August 28, 2022 8:43 AM [facility] 08-28-2022 History of Presen t illness Narrative [...] PERIPHERAL IV DATA: Not applicable SIGNED BY: MILY Sheppard) August 28, 2022 8:43 AM documented in this encounter [place] 08-22-2022 Note HNO ID: [id number] Author: Miko Blackburn, DO Service: ? Author Type: Physician Type: Progress Notes Filed: 08/22/2022 12:36 PM Note Text: Patient presents with: Right Hip - Brian Salgureo is a 67 year old male who presents for evaluation for right hip pain. The patient states he sustained a fall about 1.5 years ago and has had persistent right hip pain since that time. The patient reports posterior hip pain and when questioned, points to the level of his piriformis. The patient has been recently evaluated by Dr. Brown, neurosurgery for spinal stenosis. 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 [facility] 08-22-2022 History of Presen t illness [...] patient has been recently evaluated by Dr. Brown, neurosurgery for spinal stenosis. 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 Shearer, pt requesting specialty locations closer to residence in [place], [place]. Faxed referrals to [facility] at [phone] requesting [facility] ( or any additional locations close to [place]) for PM and Ortho. Referral for ortho ( [facility]) has been submitted via the [facility] Internal Referral request form on the [facility] Appointment Portal was placed before seeing providers [facility] notes requesting alternative locations. Confirmation # [id number] Autumn Burr MA documented in this encounter [place] 08-04-2022 Note HNO ID: [id number] Author: Sushant Brown MD, PhD Service: ? Author Type: Physician Type: Progress Notes Filed: 08/04/2022 12:35 PM Note Text: NEUROSURGERY FOLLOW UP OFFICE NOTE Sushant Brown MD, PhD Date of visit: August 04, 2022 Patient Name: Mr.Alan Matthew Salguero Date of : 1955 Current Age: [age] year old Sex: male MRN/E# [id number] Last Office Visit: 03/21/2022 Chief Complaint: Patient [...] bowel or bladder dysfunction. He notes taking [place] at night that helps relieve some of [...] wound. Allergic/Immunologic: Ne (more content not included)... [facility] 07-31-2022 Note HNO ID: [id number] Author: Charlie Osuna PT Service: ? Author Type: Physical Therapist Type: Progress Notes Filed: 07/31/2022 4:41 PM Note Text: 07/31/2022 [facility] REHABILITATION [facility] SPORTS THERAPY PHYSICAL THERAPY DISCONTINUANCE [...] or less - Not met, will continue [place] in home exercise program. - Met so [...] therapy or scheduled additional follow-up appointments. Charlie Osuna PT [facility] 05-06-2022 Note HNO ID: [id number] Author: Charlie Osuna PT Service: ? Author Type: Physical Therapist Type: Progress Notes Filed: 05/08/2022 1:42 PM Note Text: Episode Visit Count: 6 Therapist That Will Accept/Oversee The Plan Of Care: Charlie Osuna Start of Care Date: 03/25/22 Onset Date: 06/26/22 Plan of Care Certification Date: 04/29/22 Next Certification Due Date: 06/03/22 Patient Identified by Name and Date of : Yes REHABILITATION AND SPORTS THERAPY PHYSICAL THERAPY TREATMENT NOTE ASSESSMENT: Jon Castro Salguero tolerated the session with decreased symptoms. [...] Total Treatment Time Minutes (timed/untimed): 40 Charlie Osuna, PT [facility] 05-06-2022 History of Presen t illness Narrative Episode Visit Count: 6 Therapist That Will Accept/Oversee The Plan Of Care: Charlie Osuna Start of Care Date: 03/25/22 Onset Date: [...] Minutes: 20 Manual TherapyTreatment Minutes: 20 Charlie Osuna PT documented in this encounter [place] 04-29-2022 Note HNO ID: [id number] Author: Charlie Osuna PT Service: ? Author Type: Physical Therapist Type: Progress Notes Filed: 04/29/2022 6:22 PM Note Text: Episode Visit Count: 5 Therapist That Will Accept/Oversee The Plan Of Care: Charlie Osuna Start of Care Date: 03/25/22 Onset Date: [...] or less - Not met, will continue [place] in home exercise program. - Met so far Pt will report improvement in pain by 50% in 8 weeks or less for improved QOL - Progressing, will continue Patient Goals: Decrease symptoms Patient Goals: Decrease symptoms Planned Interventions, Frequency, and Duration: 1x/week, 4 weeks Total Number of Visits Planned: 4 Patient to be seen for Therapeutic exercise (05115);Neuromuscular re-education (88127);Manual therapy (83426);Self-custodial management (88217);Patient/Family/Caregiver Education PLAN FOR NEXT VISIT: Trial core [...] Total Treatment Time Minutes (timed/untimed): 45 Charlie Osuna PT [facility] 04-22-2022 Note HNO ID: [id number] Author: Charlie Osuna PT Service: ? Author Type: Physical Therapist Type: Progress Notes Filed: 04/22/2022 6:17 PM Note Text: Episode Visit Count: 4 Therapist That Will Accept/Oversee The Plan Of Care: Charlie Osuna Start of Care Date: 03/25/22 Onset Date: [...] Total Treatment Time Minutes (timed/untimed): 39 Charlie Osuna PT [facility] 04-22-2022 History of Presen t illness Narrative Episode Visit Count: 4 Therapist That Will Accept/Oversee The Plan Of Care: Charlie Osuna Start of Care Date: 03/25/22 Onset Date: [...] Total Treatment Time Minutes (timed/untimed): 39 Charlie Osuna PT documented in this encounter [place] 04-10-2022 Note HNO ID: [id number] Author: Charlie Osuna PT Service: ? Author Type: Physical Therapist Type: Progress Notes Filed: 04/10/2022 8:10 AM Note Text: Episode Visit Count: 3 Therapist That Will Accept/Oversee The Plan Of Care: Charlie Osuna Start of Care Date: 03/25/22 Onset Date: [...] Total Treatment Time Minutes (timed/untimed): 40 Charlie Osuna, PT [facility] 04-10-2022 History of Presen t illness Narrative Episode Visit Count: 3 Therapist That Will Accept/Oversee The Plan Of Care: Charlie Osuna Start of Care Date: 03/25/22 Onset Date: [...] Total Treatment Time Minutes (timed/untimed): 40 Charlie Osuna PT documented in this encounter [place] 04-01-2022 Note HNO ID: [id number] Author: Charlie Osuna PT Service: ? Author Type: Physical Therapist Type: Progress Notes Filed: 04/01/2022 6:29 PM Note Text: Episode Visit Count: 2 Therapist That Will Oversee The Plan Of Care: Charlie Osuna Start of Care Date: 03/25/22 Onset Date: [...] and assessment of patient's response to intervention. Self-Long Term Management: 1: Discussed use of gel insert [...] Total Treatment Time Minutes (timed/untimed): 39 Charlie Osuna PT [facility] 03-25-2022 Note HNO ID: [id number] Author: Charlie Osuna PT Service: ? Author Type: Physical Therapist Type: Progress Notes Filed: 03/25/2022 9:23 AM Note Text: Episode Visit Count: 1 Therapist That Will Oversee The Plan Of Care: Charlie Osuna Start of Care Date: 03/25/22 Onset Date: [...] RLE strength in 8 weeks or less [place] in home exercise program. 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 [facility] 03-25-2022 History of Presen t illness Narrative Episode Visit Count: 1 Therapist That Will Oversee The Plan Of Care: Charlie Osuna Start of Care Date: 03/25/22 Onset Date: [...] RLE strength in 8 weeks or less [place] in home exercise program. 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 Author Type: Crewman [employer] Type: Progress Notes Filed: 03/15/2022 8:55 AM [...] IV DATA: Not applicable SIGNED BY: RT Eros(R) March 15, 2022 8:54 AM [facility] 03-14-2022 Miscellaneous Notes Referral for PT has been submitted via the [facility] Internal Referral request form on the [facility] Appointment Portal. Confirmation # [id number] Noted patient preference of [facility] on referral. Autumn Burr MA documented in this encounter [place] 03-13-2022 Note HNO ID: [id number] Author: Sushant Brown MD, PhD Service: ? Author Type: Physician Type: Progress Notes Filed: 03/13/2022 5:02 PM Note Text: NEUROSURGERY CONSULT NOTE Sushant Brown MD, PhD Date of visit: March 13, 2022 Patient Name: Mr.Alan Matthew Salguero Date of : 1955 Current Age: [age] year old Sex: male MRN/E# [id number] Chief Complaint: No chief complaint on file. [...] Negative for elizabeth (more content not included)... [facility] 03-13-2022 Instructions Sushant Brown MD, PhD - 03/13/2022 5:01 PM EDT [...] allowing for increased mobility and exercise. Common oidg-ean-jduoftd NSAIDs include aspirin, ibuprofen (Motrin , Advil [...] smoking Eat healthy, well-balanced meals References [place] [employer]. Herniated Cervical Disc Accessed 03/13/2014. [place] [employer]. Herniated Lumbar Disc Accessed 03/13/2014. [place] [employer]. Herniated Disk Accessed 03/13/2014. Kerwin Lanza. Chapter 276. Neck and Back Pain. In: Rodriguez ROCHA, Julio Cesar J, Jayden O, Karina DM, Gio RK, Sohail GD, T. eds. Rodriguez's Emergency Medicine: A Comprehensive Study Guide, 7e. [place], [place]: [facility]; 2010. library.ccf.org Accessed 03/13/2014. Copyright 5460-2022 The [facility]. All rights reserved This information is provided by the [place] and is not intended to replace the medical advice of your doctor or health care provider. Please consult your health care provider for advice about a specific medical condition. For additional health information, please contact the [facility] at the [place] or toll-free extension [phone]. If you prefer, you may visit [email or web address] or [email or web address]. This document was last reviewed on: 2014 index#[id number] documented in this encounter [place] 03-13-2022 History of Presen t illness Narrative NEUROSURGERY CONSULT NOTE Sushant Brown MD, PhD Date of visit: March 13, 2022 Patient Name: Mr.Alan Matthew Salguero Date of : 1955 Current Age: [age] year old Sex: male MRN/E# [id number] Chief Complaint: No chief complaint on file. [...] and is in agreement with plan. Sushant Brown MD, PhD This note was partially generated using Inogen voice recognition system, and there may be some incorrect words, spellings, and punctuation that were not noted in checking the note before saving. documented in this encounter [place] Evaluation + Plan note Future Appointments Appointment Date:02/18/2022 09:15:00 AM Scheduled Provider:ROM JETT MD Location:[facility] Appointment Type:PM [facility] Evaluation note Diagnosis Osteoarthritis of spine with radiculopathy, lumbar region- Primary Pain in right hip Pain in joint, pelvic region and thigh documented in this encounter [place]* Diagnosis Osteoarthritis of spine with radiculopathy, lumbar region- Primary documented in this encounter [place]* Diagnosis Osteoarthritis of spine with radiculopathy, lumbar region- Primary documented in this encounter [facility]* Diagnosis Osteoarthritis of spine with radiculopathy, lumbar region- Primary documented in this encounter [facility] note* Diagnosis Osteoarthritis of spine with radiculopathy, lumbar region- Primary documented in this encounter [facility]* Diagnosis Primary osteoarthritis of right hip- Primary Primary localized osteoarthrosis, pelvic region and thigh Piriformis muscle pain Mylagia and myositis, unspecified documented in this encounter [facility] note* Diagnosis Osteoarthritis of spine with radiculopathy, lumbar region- Primary 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, 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 documented in this encounter [facility]* Diagnosis Osteoarthritis of spine with radiculopathy, lumbar region- Primary 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, 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 documented in this encounter [facility]* Diagnosis Pain in right hip- Primary Pain in joint, pelvic region and thigh documented in this encounter [facility] note* Diagnosis Pain of right hip joint- Primary Pain of right hip joint documented in this encounter [facility] note* Diagnosis Spinal stenosis of lumbar region, unspecified whether neurogenic claudication present Osteoarthritis of spine with radiculopathy, lumbar region documented in this encounter [facility] note* Diagnosis Pain in right hip Pain in joint, pelvic region and thigh [facility] Narrative No data available for this section [facility] Discharge instructions No data available for this section [facility] Progress note No data available for this section [facility] Reason for referral (narrative)* Diagnostic Procedure Only (Routine) - Pending Review Specialty Diagnoses / Procedures Referred By Contac t Referred To Contact XR IMAGING Diagnoses Pain in right hip Procedures XR HIP BILATERAL 5V PEL/AP/LAT EACH HIP RADEX HIPS BILATERAL WITH PELVIS MINIMUM 5 VIEWS Sushant Brown MD, PhD [address] [place] [address] Xr Imaging Referral ID Status Reason Start Date Expiration Date Visits Requested Visits Authorized [id number] Pending Review Auto-Generat ed Referral 03/13/2022 04/12/2023 1 1 * Physical Therapy (Routine) - Pending Review Specialty Diagnoses / Procedures Referred By Contac t Referred To Contact [facility] INS Diagnoses Osteoarthritis of spine with radiculopathy, lumbar region Procedures CONSULT TO PHYSICAL THERAPY PHYSICAL THERAPY EVALUATION HIGH COMPLEX 45 MINS Sushant Brown MD, PhD [address] [place] [address] [facility] [place] [address] [place] [address] Referral ID Status Reason Start Date Expiration Date Visits Requested Visits Authorized [id number] Pending Review Auto-Generat ed Referral 03/13/2022 03/13/2023 1 1 [facility] for referral (narrative)* Diagnostic Procedure Only (Routine) - Closed Specialty Diagnoses / Procedures Referred By Contac t Referred To Contact XR IMAGING Diagnoses Pain in right hip Procedures XR HIP BILATERAL 5V PEL/AP/LAT EACH HIP RADEX HIPS BILATERAL WITH PELVIS MINIMUM 5 VIEWS Sushant Brown MD, PhD [address] [place] [address] [place] [address] Referral ID Status Reason Start Date Expiration Date V isits Requested Visits Authorized [id number] Closed Auto-Generate d Referral 03/13/2022 04/12/2023 1 1 [facility] for visit Narrative* Diagnostic Procedure Only (Routine) - Closed Specialty Diagnoses / Procedures Referred By Contac t Referred To Contact XR IMAGING Diagnoses Pain in right hip Procedures XR HIP BILATERAL 5V PEL/AP/LAT EACH HIP RADEX HIPS BILATERAL WITH PELVIS MINIMUM 5 VIEWS Sushant Brown MD, PhD [address] [place] [address] [place] [address] Referral ID Status Reason Start Date Expiration Date V isits Requested Visits Authorized [id number] Closed Auto-Generate d Referral 03/13/2022 04/12/2023 1 1 [place] Summary Purpose Family History No Family History [...] SPINAL CANAL LUMBAR W/O CONTRAST MATERIAL Sushant Brown MD, PhD [address] [place] [address] [place] [address] Referral ID Status Reason Start Date Expiration Date V isits Requested Visits Authorized [id number] Closed Auto-Generate d Referral 08/04/2022 09/03/2023 1 1 Specialty Diagnoses / Procedures Referred By Contac t Referred To Contact Pain Management Diagnoses Pain in right hip Procedures CONSULT TO PAIN MGT Sushant Bronw MD, PhD [address] [facility] [place] [address] Referral ID Status Reason Start Date Expiration Date Visits Requested Visits Authorized [id number] Ref Not Required PCP Requested Referral 09/22/2022 09/22/2023 1 1 Additional Source Comments Care Team (unrecognized sect ion and content) Care Team Personnel Name: YOLI WOLFE MD Member Role: Primary Care Physician Address: Address: [facility]/[address] [place] [address]- Care Team Related Persons Name: YASEMIN SALGUERO Address: Home [address] [place] [address] [place] Source Comments (unrecognize d section and content) In the event this informatio n is protected by the Federal Confidentiality of Alcohol and Drug Abuse Patient Records regulations: The Federal rules restrict any use of the information to criminally investigate or prosecute any alcohol or drug abuse patient.[place] the event this information is protected by the Federal Confidentiality of Alcohol and Drug Abuse Patient Records regulations: The Federal rules restrict any use of the information to criminally investigate or prosecute any alcohol or drug abuse patient.[place]In the event this information is protected by the Federal Confidentiality of Alcohol and Drug Abuse Patient Records regulations: The Federal rules restrict any use of the information to criminally investigate or prosecute any alcohol or drug abuse patient.[place]In the event this information is protected by the Federal Confidentiality of Alcohol and Drug Abuse Patient Records regulations: The Federal rules restrict any use of the information to criminally investigate or prosecute any alcohol or drug abuse patient.[place]In the event this information is protected by the Federal Confidentiality of Alcohol and Drug Abuse Patient Records regulations: The Federal rules restrict any use of the information to criminally investigate or prosecute any alcohol or drug abuse patient.[place]ervilleIn the event this information is protected by the Federal Confidentiality of Alcohol and Drug Abuse Patient Records regulations: The Federal rules restrict any use of the information to criminally investigate or prosecute any alcohol or drug abuse patient.[place]ervilleIn the event this information is protected by the Federal Confidentiality of Alcohol and Drug Abuse Patient Records regulations: The Federal rules restrict any use of the information to criminally investigate or prosecute any alcohol or drug abuse patient.[place]ervilleIn the event this information is protected by the Federal Confidentiality of Alcohol and Drug Abuse Patient Records regulations: The Federal rules restrict any use of the information to criminally investigate or prosecute any alcohol or drug abuse patient.[place]In the event this information is protected by the Federal Confidentiality of Alcohol and Drug Abuse Patient Records regulations: The Federal rules restrict any use of the information to criminally investigate or prosecute any alcohol or drug abuse patient.[place]ervilleIn the event this information is protected by the Federal Confidentiality of Alcohol and Drug Abuse Patient Records regulations: The Federal rules restrict any use of the information to criminally investigate or prosecute any alcohol or drug abuse patient.[place]In the event this information is protected by the Federal Confidentiality of Alcohol and Drug Abuse Patient Records regulations: The Federal rules restrict any use of the information to criminally investigate or prosecute any alcohol or drug abuse patient.[place]In the event this information is protected by the Federal Confidentiality of Alcohol and Drug Abuse Patient Records regulations: The Federal rules restrict any use of the information to criminally investigate or prosecute any alcohol or drug abuse patient.[place]In the event this information is protected by the Federal Confidentiality of Alcohol and Drug Abuse Patient Records regulations: The Federal rules restrict any use of the information to criminally investigate or prosecute any alcohol or drug abuse patient.[place]In the event this information is protected by the Federal Confidentiality of Alcohol and Drug Abuse Patient Records regulations: The Federal rules restrict any use of the information to criminally investigate or prosecute any alcohol or drug abuse patient.[place]ervilleIn the event this information is protected by the Federal Confidentiality of Alcohol and Drug Abuse Patient Records regulations: The Federal rules restrict any use of the information to criminally investigate or prosecute any alcohol or drug abuse patient.[place] Reason for Visit (unrecogniz ed section and content) Reason Comments Physical Therapy Specialty Diagnoses / Procedures Referred By Contac t Referred To Contact [facility] Diagnoses Osteoarthritis of spine with radiculopathy, lumbar region Procedures CONSULT TO PHYSICAL THERAPY PHYSICAL THERAPY EVALUATION HIGH COMPLEX 45 MINS Sushant Brown MD, PhD [address] [facility] [place] [address] [facility] [place] [address] [place] [address] Referral ID Status Reason Start Date Expiration Date Visits Requested Visits Authorized [id number] Authorized Auto-Generat ed Referral 07/27/2021 07/26/2022 99 99 Reason Comments New Patient Evaluation Specialty Diagnoses / Procedures Referred By Contac t Referred To Contact [facility] Department Diagnoses Sciatic nerve per Dr. 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 Reason Comments Established Patient Reason Comments Consult Specialty Diagnoses / Procedures Referred By Contac t Referred To Contact [facility] Diagnoses Spinal stenosis of lumbar region, unspecified whether neurogenic claudication present Osteoarthritis of spine with radiculopathy, lumbar region Procedures MRI LUMBAR SPINE WO IVCON MRI SPINAL CANAL LUMBAR W/O CONTRAST MATERIAL Sushant Brown MD, PhD [address] [facility] [place] [address] [place] [address] Referral ID Status Reason Start Date Expiration Date V isits Requested Visits Authorized [id number] Closed Auto-Generate d Referral 08/04/2022 09/03/2023 1 1 (unrecognized sect ion and content) No Status Records FoundNo Status Records FoundNo Status Records FoundNo Status Records Found INFORMATION SOURCE (unrecogn ized section and content) DATE CREATED AUTHOR 08/20/2022 [facility] DATE CREATED AUTHOR AUTHOR'S ORGANIZ ATION 08/23/2022 [facility] nt DATE CREATED AUTHOR AUTHOR'S ORGANIZ ATION 10/08/2022 [facility] DATE CREATED AUTHOR AUTHOR'S ORGANIZ ATION 11/11/2022 [facility] FOR RECORDS PERTAINING TO PATIENTS WHO [...] BE BASED ON THE PRIMARY CLINICAL RECORDS. [facility]. provides no warranty or guarantee of the accuracy or completeness of information in this document.
[2024-05-20 14:58] LABS: CREATININE FINGERSTICK 1.4 mg/dL (0.70-1.30)
[2024-05-20 15:14] LABS: Absolute Lymphocyte Count 0.98 X10^3/uL (0.83-4.51); Absolute Neutrophil Count 3.5 X10^3/uL (2.0-7.7); Basophil# 0.02 X10^3/uL; Basophil% 0.3 % (0-1); Eosinophils% 13.6 % (0-5); Hematocrit 35.4 % (40-54); Hemoglobin 11.8 g/dL (13.0-16.5); Lymphocyte # 0.98 X10^3/ul (0.83-4.51); Lymphocyte % 14.8 % (19-41); Mean Corp Hgb Conc 33.3 g/dL (32-36); Mean Corpuscular Hgb 27.8 pg (27.0-32.0); Mean Corpuscular Volume 83.5 fL (80-94); Mean Platelet Vol. 10.9 fl (6.2-12.0); Monocyte# 1.15 X10^3/uL; Monocyte% 17.4 % (0-10); NRBC Flagged by Analyzer 0 % (0-5); Neutrophil # 3.52 X10^3/uL (2.7-7.7); Neutrophil % 53.3 % (47-70); Platelet Count 254 K/mm3 (150-450); RBC Distribution Width CV 13.3 % (11.6-14.6); RBC Distribution Width SD 40.4 fl (35.1-43.9); Red Blood Count 4.24 M/mm3 (4.6-6.2); White Blood Count 6.6 K/mm3 (4.4-11.0)
[2024-05-20 15:36] LABS: Lactic Acid 0.8 mmol/L (0.4-1.9)
[2024-05-20 15:37] LABS: ALB/GLOB Ratio 0.8 RATIO (0.9-2.4); AST(SGOT) 26 U/L (15-37); Alanine Aminotransfer ALT/SGPT 44 U/L (16-61); Albumin, Serum 3.1 g/dL (3.2-5.0); Alkaline Phosphatase 83 U/L (45-117); Amylase 46 U/L (25-115); Anion Gap 5 (5-15); BUN 20 mg/dL (7-18); BUN/Creat Ratio 18.3 RATIO (10-20); Calcium,Total 9.1 mg/dL (8.5-10.1); Chloride 94 mmol/L (98-107); Creatinine, Serum 1.09 mg/dL (0.70-1.30); EST Glomerular Filtration Rate 71 mL/min (>60); Est Glom Filt Rate - Afr Amer 86 mL/min (>60); Glucose 99 mg/dL (74-106); Lipase 39 U/L (13-75); Potassium 4.2 mmol/L (3.5-5.1); Protein, Total 7.1 g/dL (6.4-8.2); Sodium Level 127 mmol/L (136-145)
== END | disposition home or self-care (01) ==
PROVIDERS: PCP Family Medicine Geriatric Medicine; Referring Provider Family Medicine Geriatric Medicine; Visit Provider Family Medicine Geriatric Medicine
DX: R10.9 Unspecified abdominal pain (principal); R06.2 Wheezing; I10 Essential (primary) hypertension; K85.90 Acute pancreatitis without necrosis or infection, unspecified; K52.9 Noninfective gastroenteritis and colitis, unspecified
CPT/HCPCS: 36415; 71046; 74177; 80053; 82150; 83605; 83690; 85025; 87086; Q9967

== ENCOUNTER → 2024-06-01 | Outpatient (CLI) | payer MEDICARE, SELFPAY ==
[2024-06-01 15:43] LABS: Absolute Lymphocyte Count 0.63 X10^3/uL (0.83-4.51); Absolute Neutrophil Count 17.6 X10^3/uL (2.0-7.7); Basophil# 0.07 X10^3/uL; Basophil% 0.3 % (0-1); Hematocrit 37.1 % (40-54); Hemoglobin 12.4 g/dL (13.0-16.5); Lymphocyte # 0.63 X10^3/ul (0.83-4.51); Lymphocyte % 3.1 % (19-41); Mean Corp Hgb Conc 33.4 g/dL (32-36); Mean Corpuscular Hgb 27.4 pg (27.0-32.0); Mean Corpuscular Volume 82.1 fL (80-94); Mean Platelet Vol. 10.7 fl (6.2-12.0); Monocyte# 1.83 X10^3/uL; Monocyte% 8.9 % (0-10); NRBC Flagged by Analyzer 0 % (0-5); Neutrophil # 17.55 X10^3/uL (2.7-7.7); Neutrophil % 85.2 % (47-70); POSITIVE DIFFERENTIAL YES; Platelet Count 373 K/mm3 (150-450); RBC Distribution Width SD 41.4 fl (35.1-43.9); Red Blood Count 4.52 M/mm3 (4.6-6.2); White Blood Count 20.6 K/mm3 (4.4-11.0)
[2024-06-01 15:59] LABS: Anion Gap 9 (5-15); BUN 31 mg/dL (7-18); BUN/Creat Ratio 19.5 RATIO (10-20); Calcium,Total 9.2 mg/dL (8.5-10.1); Chloride 100 mmol/L (98-107); Creatinine, Serum 1.59 mg/dL (0.70-1.30); EST Glomerular Filtration Rate 46 mL/min (>60); Est Glom Filt Rate - Afr Amer 56 mL/min (>60); Glucose 124 mg/dL (74-106); Potassium 4.6 mmol/L (3.5-5.1); Sodium Level 129 mmol/L (136-145)
[2024-06-01 16:34] LABS: Differential Comment SCANNED; Differential Indicated SCAN CRITERIA MET
[2024-06-03 08:11] LABS: Pathologist Review Reviewed
== END | disposition home or self-care (01) ==
PROVIDERS: PCP Family Medicine Geriatric Medicine; Referring Provider Family Medicine Geriatric Medicine; Visit Provider Family Medicine Geriatric Medicine
DX: J98.8 Other specified respiratory disorders (principal); M79.10 Myalgia, unspecified site; R68.83 Chills (without fever)
CPT/HCPCS: 36415; 71046; 80048; 85025; 87631

== ENCOUNTER 2024-06-02 13:55 | Outpatient (CLI) | payer MEDICARE, SELFPAY ==
[2024-06-02 14:06] VITALS: BP 135/67; PULSE 91; RESP 16; TEMP 35.8; O2SAT 97
[2024-06-02] MEDS: 0.9% NaCl Peripheral Flush Adult/Peds IV (14:15)
[2024-06-02] MEDS: 0.9% Normal Saline (1000mL) 1,000 ML 999 ML IV (14:15)
[2024-06-02 15:29] VITALS: BP 99/52; PULSE 90; RESP 16; TEMP 36; O2SAT 96
== END 2024-06-02 23:59 | disposition home or self-care (01) ==
LOC: MEDOUTP 13:55
PROVIDERS: PCP Family Medicine Geriatric Medicine; Referring Provider Family Medicine Geriatric Medicine; Visit Provider Family Medicine Geriatric Medicine
DX: E86.0 Dehydration (principal)
CPT/HCPCS: 96360; J7030; A4216

== ENCOUNTER → 2024-06-02 | Outpatient (CLI) | payer MEDICARE, SELFPAY ==
[2024-06-02 16:27] LABS: Urine Sodium 58 mmol/L (Not Establ.)
[2024-06-02 16:31] LABS: Anion Gap 8 (5-15); BUN 45 mg/dL (7-18); BUN/Creat Ratio 23.1 RATIO (10-20); Calcium,Total 9.3 mg/dL (8.5-10.1); Chloride 100 mmol/L (98-107); Creatinine, Serum 1.95 mg/dL (0.70-1.30); EST Glomerular Filtration Rate 36 mL/min (>60); Est Glom Filt Rate - Afr Amer 44 mL/min (>60); Glucose 219 mg/dL (74-106); Potassium 4.4 mmol/L (3.5-5.1); Sodium Level 130 mmol/L (136-145)
[2024-06-02 18:03] LABS: Osmolality, Serum 300 mOsm/KG (280-301); Osmolality, Urine 535 mOsm/KG
== END | disposition home or self-care (01) ==
LOC: LAB 15:39
PROVIDERS: PCP Family Medicine Geriatric Medicine; Referring Provider Family Medicine Geriatric Medicine; Visit Provider Family Medicine Geriatric Medicine
DX: I10 Essential (primary) hypertension (principal); E87.1 Hypo-osmolality and hyponatremia
CPT/HCPCS: 36415; 80048; 83930; 83935; 84300

== ENCOUNTER → 2024-06-03 | Outpatient (CLI) | payer MEDICARE, SELFPAY ==
[2024-06-03 11:40] LABS: Anion Gap 8 (5-15); BUN 42 mg/dL (7-18); BUN/Creat Ratio 31.3 RATIO (10-20); Calcium,Total 9.3 mg/dL (8.5-10.1); Chloride 105 mmol/L (98-107); Creatinine, Serum 1.34 mg/dL (0.70-1.30); EST Glomerular Filtration Rate 56 mL/min (>60); Est Glom Filt Rate - Afr Amer 68 mL/min (>60); Glucose 184 mg/dL (74-106); Potassium 4.1 mmol/L (3.5-5.1); Sodium Level 133 mmol/L (136-145)
== END | disposition home or self-care (01) ==
LOC: LAB 10:02
PROVIDERS: PCP Family Medicine Geriatric Medicine; Referring Provider Family Medicine Geriatric Medicine; Visit Provider Family Medicine Geriatric Medicine
DX: E87.1 Hypo-osmolality and hyponatremia (principal)
CPT/HCPCS: 36415; 80048

== ENCOUNTER 2024-07-25 10:17 | Emergency (ER) | payer MEDICARE, SELFPAY ==
[2024-07-25] VITALS (7 sets, daily range): BP systolic 127–148; BP diastolic 73–100; PULSE 85–118; RESP 18–25; TEMP 37.2–38.3; O2SAT 93–99
--- NOTE | 2024-07-25 10:59 | EKG12_ITS ---
Test Reason : COUGH Blood Pressure : */* mmHG Vent. Rate : 129 BPM Atrial Rate : 187 BPM P-R Int : 116 ms QRS Dur : 78 ms QT Int : 296 ms P-R-T Axes : 54 37 28 degrees QTcB Int : 433 ms Sinus tachycardia Nonspecific ST abnormality Abnormal ECG Confirmed by YUMIKO ARZATE, MAGDIEL ([id number]), newspaper or periodical editor CHICO LING ([id number]) on 07/26/2024 7:57:40 AM Referred By: Confirmed By: MAGDIEL CALDERON MD
[2024-07-25] MEDS: 0.9% Normal Saline (1000mL) 1,000 ML 999 ML IV (11:12)
[2024-07-25] MEDS: Acetaminophen 325 MG Tablet 650 MG PO (11:13)
[2024-07-25 11:17] LABS: Absolute Lymphocyte Count 0.33 X10^3/uL (0.83-4.51); Absolute Neutrophil Count 4.5 X10^3/uL (2.0-7.7); Basophil# 0.01 X10^3/uL; Basophil% 0.2 % (0-1); Hematocrit 38.3 % (40-54); Hemoglobin 12.7 g/dL (13.0-16.5); Lymphocyte # 0.33 X10^3/ul (0.83-4.51); Lymphocyte % 6.1 % (19-41); Mean Corp Hgb Conc 33.2 g/dL (32-36); Mean Corpuscular Hgb 27.8 pg (27.0-32.0); Mean Corpuscular Volume 83.8 fL (80-94); Mean Platelet Vol. 10.5 fl (6.2-12.0); Monocyte# 0.49 X10^3/uL; NRBC Flagged by Analyzer 0 % (0-5); Neutrophil # 4.53 X10^3/uL (2.7-7.7); Neutrophil % 83.2 % (47-70); POSITIVE DIFFERENTIAL YES; Platelet Count 227 K/mm3 (150-450); RBC Distribution Width CV 14.9 % (11.6-14.6); RBC Distribution Width SD 45.1 fl (35.1-43.9); Red Blood Count 4.57 M/mm3 (4.6-6.2); White Blood Count 5.4 K/mm3 (4.4-11.0)
--- NOTE | 2024-07-25 11:20 | RAD_ITS ---
INDICATION: Cough, shortness of breath EXAMINATION/TECHNIQUE: X-RAY - XR Chest 1 View COMPARISON: Prior study dated: 08/12/2023. FINDINGS: LINES/DEVICES: None. LUNGS: No consolidation, edema or effusion. No pneumothorax. MEDIASTINUM AND CARDIOVASCULAR STRUCTURES: Cardiac silhouette not enlarged. Central airways and mediastinal contour are unremarkable. BONES AND SOFT TISSUES: Unremarkable. RAD/Chest 1 View (Portable) IMPRESSION: No radiographic evidence of acute cardiopulmonary disease. Electronically Signed: Andrew Montaño MD at 12:01 EST ,
[2024-07-25 11:26] LABS: International Normalized Ratio 1.1; Prothrombin Time (Protime)PT. 13.9 SECONDS (11.7-14.9)
[2024-07-25 11:28] LABS: Partial Thromboplast Time 28.4 Seconds (24.1-36.2)
[2024-07-25 11:37] LABS: AST(SGOT) 24 U/L (15-37); Alanine Aminotransfer ALT/SGPT 36 U/L (16-61); Albumin, Serum 3.8 g/dL (3.2-5.0); Alkaline Phosphatase 89 U/L (45-117); Anion Gap 5 (5-15); BUN 22 mg/dL (7-18); BUN/Creat Ratio 17.5 RATIO (10-20); Calcium,Total 9.6 mg/dL (8.5-10.1); Chloride 97 mmol/L (98-107); Creatinine, Serum 1.26 mg/dL (0.70-1.30); EST Glomerular Filtration Rate 60 mL/min (>60); Est Glom Filt Rate - Afr Amer 73 mL/min (>60); Globulin 3.8 g/dL (2.2-4.2); Glucose 124 mg/dL (74-106); Potassium 3.8 mmol/L (3.5-5.1); Protein, Total 7.6 g/dL (6.4-8.2); Sodium Level 129 mmol/L (136-145)
[2024-07-25 11:47] LABS: Lactic Acid 1.6 mmol/L (0.4-1.9)
[2024-07-25 13:22] LABS: Bacteria 0 SEEN /hpf (None Seen); Mucous, Urine 0 SEEN /hpf (<or=2+); Red Blood Cells-Urine 0 SEEN /hpf (0-5); Squamous Epithelial Cells - UA 0 SEEN /hpf (0-5); White Blood Cells 0 SEEN /hpf (0-5)
[2024-07-25 13:31] LABS: Color, Urine Yellow (Yellow); Glucose, Dipstick Normal (Normal); Ketone-Dipstick 15 mg/dl (Negative); Leukocyte Esterase-Dipstick 25 /ul (Negative); Nitrite-Dipstick Negative (Negative); Occult Blood-Urine 50 /ul (Negative); Protein-Dipstick 30 mg/dl (Negative); Specific Gravity, Urine 1.015 (1.002-1.030); Urine Bilirubin Dipstick Negative (Negative); Urine Clarity Clear (Clear); Urine Urobilinogen Normal (Normal)
--- NOTE | 2024-07-25 14:08 | ED.VIS.DYS ---
HPI History of Present Illness Chief Complaint: Cough Narrative Narrative: 69-year-old male who denies significant past medical history presents with fever cough, shortness of breath and bodyaches that he has had for the last 2 days. He denies any exacerbating or alleviating factors. Short with his answers stating that he has not felt well for the last 1 to 2 days. His symptoms began on Thursday. PFSH PFS Medical History Hyperlipidemia GERD (gastroesophageal reflux disease) HTN (hypertension) Home Medications ?Medication ?Instructions ?Recorded ?Last Taken ?Type atorvastatin 40 mg tablet 40 mg PO DAILY 10/13/21 07/24/24 History lisinopril 20 1 tab PO DAILY 10/13/21 07/25/24 History mg-hydrochlorothiazide 12.5 mg tablet omeprazole 40 mg capsule,delayed 40 mg PO QHS 10/13/21 07/25/24 History release albuterol sulfate 90 mcg/actuation 1 inh inhalation Q6H 07/25/24 07/25/24 History aerosol inhaler ipratropium bromide 42 mcg (0.06 2 spray intranasal DAILY 07/25/24 07/24/24 History %) nasal spray levocetirizine 5 mg tablet 5 mg PO DAILY 07/25/24 07/24/24 History magnesium 200 mg tablet 200 mg PO QHS 07/25/24 07/24/24 History oseltamivir 75 mg capsule (Tamiflu) 75 mg PO BID 5 days #10 caps 07/25/24 Unknown Rx vitamin B complex 1 tab PO DAILY 07/25/24 07/25/24 History Allergy/AdvReac Type Severity Reaction Status Date / Time No Known Allergies Allergy Verified 07/25/24 10:20 Surgical History Hx of tonsillectomy History of surgical removal of ganglion cyst Hx of arthroscopy of right knee H/O rotator cuff surgery Social History Smoking Status: Unknown if ever smoked ROS ROS ED ROS Narrative Constitutional: Questionable fever, no chills. HEENT: No sore throat. No neck pain. No loss of vision. No rhinorrhea. Cardiovascular: No chest pain. No palpitations. No pedal edema. Respiratory: Positive cough, occasional shortness of breath. Abdominal: No abdominal pain. No nausea. No vomiting. Genitourinary: No dysuria. No hematuria. Musculoskeletal: Multiple myalgias and arthralgias. Neurologic: No headaches. No dizziness. No lightheadedness. Skin: No rash. No change in color. Psychiatric: No depression. No anxiety. EXAM Physical Exam Narrative Exam Narrative: Temperature 100.9 ?F, nontoxic-appearing. Cardiovascular examination reveals mild tachycardia. Lungs are clear to auscultation bilaterally. Abdomen is soft nontender with normoactive bowel sounds. Neurological examination nonfocal and nonlateralizing. Const Vital Signs: 07/25/24 10:18 07/25/24 10:19 07/25/24 10:39 Temperature 100.9 F H 100.9 F H Temperature Source Oral Oral Pulse Rate 102 H 102 H Respiratory Rate 20 H 20 H Respiratory Effort Short of Breath Respiratory Depth Shallow Respiratory Pattern Normal Blood Pressure 127/100 H 127/100 H Blood Pressure Mean 109 109 Pulse Ox 96 96 Oxygen Delivery Method Room Air Room Air Room Air 07/25/24 10:59 07/25/24 11:19 07/25/24 12:00 Temperature 100.7 F H 100.4 F H Temperature Source Oral Oral Pulse Rate 118 H 99 Respiratory Rate 20 H 18 Respiratory Effort Respiratory Depth Respiratory Pattern Blood Pressure 133/73 H 138/78 H Blood Pressure Mean 93 98 Pulse Ox 95 94 Oxygen Delivery Method Room Air Room Air Room Air 07/25/24 13:00 07/25/24 14:00 07/25/24 14:00 Temperature 99.6 F H 99 F Temperature Source Oral Oral Pulse Rate 85 109 H 109 H Respiratory Rate 25 H 23 H 23 H Respiratory Effort Respiratory Depth Respiratory Pattern Blood Pressure 148/87 H 138/98 H 138/98 H Blood Pressure Mean 107 111 111 Pulse Ox 99 93 93 Oxygen Delivery Method Room Air MDM MDM MDM Narrative Medical decision making narrative: Differential diagnosis includes but not limited to sepsis from pneumonia versus UTI versus COVID versus influenza or other viral syndrome. EKG was obtained and interpreted by myself independently as sinus tachycardia at 129 bpm which is sometimes a regular. No acute ST changes. No STEMI. I reviewed his laboratory work and he has normal white count of 5.4 with hemoglobin stable at 12.7 and platelet count normal at 227. INR normal at 1.1 with a PTT 28.4. BUN is elevated at 22 with creatinine of 1.26. He has chronic hyponatremia and today it is low at 129. He was bolused IV fluids as well as chloride is low at 97. I think this is mild dehydration. Glucose 124 with an anion gap of 5. LFTs are grossly unremarkable. Urinalysis is negative for infection with WBC count 0. I do not feel antibiotics are indicated. Chest x-ray interpreted by myself independently shows no evidence of pneumonia or pneumothorax. I reviewed the radiology report which confirms my independent interpretation. Lactic acid is normal at 1.6. I do not feel he is septic. After Tylenol temperature is now 99 ?F and he is less tachycardic, as low as 102 bpm. Upon repeat examination he is feeling improved. His respiratory swab was positive for influenza A. I discussed use of Tamiflu with him and gave him his first dose here and wrote him a prescription for the next 5 days to take twice a day. I feel he can be discharged safely home with follow-up. Additionally I discussed admission with him given his febrile illness, but he declined and prefers outpatient treatment which I feel is reasonable. Disposition is discharged home in stable condition. Return instructions reviewed. History & Record Review Discussion w/independent historian: Patient Additional record(s) reviewed:: Prior labs Lab Data Attestation: I reviewed the patient's lab results. Labs: Laboratory Results - last 24 hr 07/25/24 07/25/24 11:03 13:19 WBC 5.4 RBC 4.57 L Hgb 12.7 L Hct 38.3 L MCV 83.8 MCH 27.8 MCHC 33.2 RDW Std Deviation 45.1 H RDW Coeff of Padam 14.9 H Plt Count 227 MPV 10.5 Immature Gran % (Auto) 1.500 H Neut % (Auto) 83.2 H Lymph % (Auto) 6.1 L [place] % (Auto) 9.0 Eos % (Auto) 0.0 Baso % (Auto) 0.2 Absolute Neuts (auto) 4.5 Absolute Lymphs (auto) 0.33 L Nucleated RBC % 0 PT 13.9 INR 1.1 APTT 28.4 Sodium 129 L Potassium 3.8 Chloride 97 L Carbon Dioxide 27.0 Anion Gap 5 BUN 22 H Creatinine 1.26 Est GFR (MDRD) Af Amer 73 Est GFR (MDRD) Non-Af 60 BUN/Creatinine Ratio 17.5 Glucose 124 H Lactic Acid 1.6 Calcium 9.6 Total Bilirubin 1.00 AST 24 ALT 36 Alkaline Phosphatase 89 Total Protein 7.6 Albumin 3.8 Globulin 3.8 Albumin/Globulin Ratio 1.0 Urine Color Yellow Urine Clarity Clear Urine pH 6.0 Ur Specific Naylor 1.015 Urine Protein 30 H Urine Glucose (UA) Normal Urine Ketones 15 H Urine Occult Blood 50 H Urine Nitrite Negative Urine Bilirubin Negative Urine Urobilinogen Normal Ur Leukocyte Esterase 25 H Urine RBC 0 SEEN Urine WBC 0 SEEN Ur Squamous Epith Cells 0 SEEN Urine Bacteria 0 SEEN Urine Mucus 0 SEEN Radiography Diagnostic Testing: Clinical Impression(s) from Imaging Studies Chest X-Ray 07/25/24 11:20 IMPRESSION: No radiographic evidence of acute cardiopulmonary disease. Electronically Signed: Andrew Montaño MD at 12:01 EST Reading Location ID and State: [address] [place] [address] Tel , Service support , Discharge Plan Triage Chief Complaint: Cough ED Provider: Jaylan Whiteside Dx/Rx/DC Orders Clinical Impression: Influenza A, Cough, Hyponatremia Instructions: ED Influenza (Adult) Prescriptions: New oseltamivir [Tamiflu] 75 mg capsule 75 mg PO BID 5 Days Qty: 10 0RF No Action atorvastatin 40 mg tablet 40 mg PO DAILY lisinopril-hydrochlorothiazide 20-12.5 mg tablet 1 tab PO DAILY omeprazole 40 mg capsule,delayed release(DR/EC) 40 mg PO QHS albuterol sulfate 90 mcg/actuation HFA aerosol inhaler 1 inh inhalation Q6H ipratropium bromide 42 mcg (0.06 %) spray,non-aerosol 2 spray INTRANASAL DAILY Patient Comments: [NO ORIGINAL SIG] levocetirizine 5 mg tablet 5 mg PO DAILY vitamin B complex Tablet 1 tab PO DAILY magnesium 200 mg tablet 200 mg PO QHS Primary Care Provider: Lester Prieto Chi Referrals: Lester Prieto Chi, MD [Primary Care Provider] - 1 Week if not improving Activity Restrictions/Additional Instructions: Return with sustained high fever, increased difficulty breathing, new or worsening symptoms. Print Language: Mongolian Disposition Disposition: Home, Self Care
[2024-07-25] MEDS: Oseltamivir Phosphate 75 MG Capsule PO (14:10)
== END 2024-07-25 14:28 | disposition home or self-care (01) ==
PROVIDERS: Emergency Provider Emergency Medicine; PCP Family Medicine Geriatric Medicine; Visit Provider Emergency Medicine
DX: J10.1 Influenza due to other identified influenza virus with other respiratory manifestations (principal); R05.9 Cough, unspecified; E87.1 Hypo-osmolality and hyponatremia; I10 Essential (primary) hypertension; E78.5 Hyperlipidemia, unspecified; K21.9 Gastro-esophageal reflux disease without esophagitis; Z79.899 Other long term (current) drug therapy; R06.02 Shortness of breath; R50.9 Fever, unspecified
CPT/HCPCS: 71045; 80053; 81001; 83605; 85025; 85610; 85730; 87040; 87086; 87631; 93005; 96360; 96361; 99284; A4216

== ENCOUNTER → 2024-07-28 | Outpatient (CLI) | payer MEDICARE, SELFPAY ==
--- NOTE | 2024-07-28 12:40 | RAD_ITS ---
EXAM: XR CHEST, 2 VIEWS CLINICAL INDICATION: WHEEZING TECHNIQUE: Frontal and lateral views of the chest. COMPARISON: XR Chest dated 07/25/2024 FINDINGS: LUNGS AND PLEURAL SPACES: Minor atelectatic change left lung base. HEART: Normal heart size. MEDIASTINUM: Stable large hiatal hernia. BONES/JOINTS: No acute abnormality. RAD/Chest PA and Lateral IMPRESSION: Large hiatal hernia. Electronically Signed: Bill Pressley MD at 17:02 EST ,
== END | disposition home or self-care (01) ==
PROVIDERS: PCP Family Medicine Geriatric Medicine; Referring Provider Family Medicine Geriatric Medicine; Visit Provider Family Medicine Geriatric Medicine
DX: R06.2 Wheezing (principal)
CPT/HCPCS: 71046

== ENCOUNTER → 2025-02-27 | Outpatient (CLI) | payer MEDICARE, OTHER, SELFPAY ==
[2025-02-27 10:01] LABS: Hematocrit 38.0 % (40-54); Hemoglobin 12.4 g/dL (13.0-16.5); Immature Granulocytes Count 0.090 X10^3/uL (0.0-0.0); Mean Corp Hgb Conc 32.6 g/dL (32-36); Mean Corpuscular Volume 85.2 fL (80-94); Mean Platelet Vol. 11.6 fl (6.2-12.0); NRBC Flagged by Analyzer 0 % (0-5); Platelet Count 269 K/mm3 (150-450); RBC Distribution Width CV 13.2 % (11.6-14.6); RBC Distribution Width SD 40.4 fl (35.1-43.9); Red Blood Count 4.46 M/mm3 (4.6-6.2); White Blood Count 6.2 K/mm3 (4.4-11.0)
[2025-02-27 11:45] LABS: AST(SGOT) 23 U/L (<=37); Alanine Aminotransfer ALT/SGPT 28 U/L (<=46); Albumin, Serum 4.3 g/dL (3.4-4.8); Alkaline Phosphatase 121 U/L (40-129); Anion Gap 16 (5-15); BUN 33 mg/dL (4-19); BUN/Creat Ratio 28.8 RATIO (10-20); Calcium,Total 10.0 mg/dL (7.6-11.0); Carbon Dioxide 20.8 mmol/L (21.0-32.0); Chloride 101 mmol/L (98-108); Globulin 2.9 g/dL (2.2-4.2); Glucose 135 mg/dL (70-99); Potassium 4.7 mmol/L (3.3-5.1); Vitamin D,25 Hydroxy 22.9 ng/mL (30-100)
[2025-02-27 17:22] LABS: Xtra Tube Kwok EXTRA TUBE
== END | disposition home or self-care (01) ==
PROVIDERS: PCP Family Medicine Geriatric Medicine; Visit Provider Family Medicine Geriatric Medicine
DX: I10 Essential (primary) hypertension (principal); E55.9 Vitamin D deficiency, unspecified
CPT/HCPCS: 36415; 80053; 82306; 83036; 84443; 85025